=== PATIENT | female | born 1955 | race Caucasian/White ===

== ENCOUNTER 2016-12-23 12:25 | Inpatient (IN) | payer MEDICAID ==
[2016-12-23] MEDS ORDERED: IBUPROFEN 600 MG TABLET PO ONE (12:39)
--- NOTE | 2016-12-23 12:57 | ER Document Report ---
ED General - General Chief Complaint: Fall Stated Complaint: PSYCH EVAL Notes: The patient is a 61-year-old female, past medical history chronic paranoia, bipolar, schizophrenia, presents from her long-term with complaints of a right deformed knee. She said that she fell and her knee is deformed now. Her staff that the long-term says that this is chronic issue for her. She was able to pivot on it to the EMS bed. She denies numbness, tingling, LOC, neck pain, headache, chest pain or shortness of breath. TRAVEL OUTSIDE OF THE [place] IN LAST 30 DAYS: No - Related Data Allergies/Adverse Reactions: No Known Allergies Allergy (Verified 09/18/12 11:18) Past Medical History - General Information source: Patient - Social History Smoking Status: Unknown if Ever Smoked Family History: Reviewed & Not Pertinent - Past Medical History Cardiac Medical History: Denies: Hx Coronary Artery Disease, Hx Heart Attack, Hx Hypertension Pulmonary Medical History: Denies: Hx Asthma, Hx Bronchitis, Hx COPD, Hx Pneumonia Neurological Medical History: Denies: Hx Cerebrovascular Accident, Hx Seizures Musculoskeltal Medical History: Denies Hx Arthritis Past Surgical History: Reports: Hx Cardiac Surgery - 3 - Immunizations Hx Diphtheria, Pertussis, Tetanus Vaccination: No Review of Systems - Review of Systems Notes: REVIEW OF SYSTEMS: CONSTITUTIONAL: -fevers, -chills EENT: -eye pain, -difficulty swallowing, -nasal congestion CARDIOVASCULAR:-chest pain, -syncope. RESPIRATORY: -cough, -SOB GASTROINTESTINAL: -abdominal pain, - nausea, -vomiting, -diarrhea GENITOURINARY: -dysuria, -hematuria MUSCULOSKELETAL: +right knee deformity/pain, -back pain, -neck pain SKIN: -rash or skin lesions. HEMATOLOGIC: -easy bruising or bleeding. LYMPHATIC: -swollen, enlarged glands. NEUROLOGICAL: -altered mental status or loss of consciousness, -headache, - neurologic symptoms PSYCHIATRIC: -anxiety, -depression. ALL OTHER SYSTEMS REVIEWED AND NEGATIVE. Physical Exam - Vital signs Vitals: Temp Pulse Resp BP Pulse Ox 97.8 F 105 H 20 179/74 H 97 12/23/16 12:48 12/23/16 12:48 12/23/16 12:48 12/23/16 12:48 12/23/16 12:48 BP 190/110, HR 110, Pulse Ox 98% - Notes Notes: PHYSICAL EXAMINATION: GENERAL: Well-appearing, well-nourished and in no acute distress. HEAD: Atraumatic, normocephalic. EYES: Pupils equal round and reactive to light, extraocular movements intact, sclera anicteric, conjunctiva are normal. ENT: nares patent, oropharynx clear without exudates. Moist mucous membranes. NECK: Normal range of motion, supple without lymphadenopathy LUNGS: Breath sounds clear to auscultation bilaterally and equal. No wheezes rales or rhonchi. HEART: Tachycardic, Regular rhythm without murmurs ABDOMEN: Soft, nontender, normoactive bowel sounds. No guarding, no rebound. No masses appreciated. EXTREMITIES: Swelling and deformity of distal right femur, no knee effusion, strong distal pulses NEUROLOGICAL: Cranial nerves grossly intact. Normal speech, normal gait. Normal sensory, motor, and reflex exams. PSYCH: Normal mood, normal affect. SKIN: Warm, Dry, normal turgor, no rashes or lesions noted. Course - Re-evaluation Re-evalutation: Patient with a distal right comminuted femur fracture after her fall. Neurovascularly intact distally. Initially, she did not want any pain medicine , but on reevaluation, she is requesting medicine now. Spoke to Dr. Moy and he will see patient as inpatient. Spoke to Dr. Rodriguez and he has accepted patient at 14:10. - Vital Signs Vital signs: Temp Pulse Resp BP Pulse Ox 97.8 F 105 H 20 179/74 H 97 12/23/16 12:48 12/23/16 12:48 12/23/16 12:48 12/23/16 12:48 12/23/16 12:48 - Laboratory Result Diagrams: 12/23/16 13:40 12/23/16 13:40 - Diagnostic Test Radiology reviewed: Image reviewed, Reports reviewed Radiology results interpreted by me: Comminuted right distal femoral fracture. Discharge - Discharge Clinical Impression: Femur fracture, right Qualifiers: Encounter type: initial encounter Femur location: shaft Fracture type: closed Fracture morphology: segmental Fracture alignment: displaced Qualified Code(s): S72.361A - Displaced segmental fracture of shaft of right femur, initial encounter for closed fracture Condition: Stable Disposition: ADMITTED INPATIENT Admitting Provider: Jennifer Unit Admitted: Medical Floor
[2016-12-23] MEDS ORDERED: MORPHINE SULFATE 10 MG/ML INJ IV ONE (14:05)
[2016-12-23 14:11] LABS: HEMATOCRIT 42.9 % (36.0-47.0); HEMOGLOBIN 14.2 g/dL (12.0-15.5); HGB HCT DIFFERENCE -0.3; MEAN CORPUSCULAR HEMOGLOBIN 27.3 pg (27.0-33.4); MEAN CORPUSCULAR HGB CONC 33.1 g/dL (32.0-36.0); MEAN CORPUSCULAR VOLUME 83 fl (80-97); RED BLOOD COUNT 5.19 10^6/uL (3.72-5.28); WHITE BLOOD COUNT 29.4 10^3/uL (4.0-10.5)
[2016-12-23 14:20] LABS: PROTHROMBIN TIME 12.4 SEC (11.4-15.4)
[2016-12-23 14:47] LABS: BASOPHILS % (MANUAL) 0 % (0-2); EOSINOPHILS % (MANUAL) 0 % (0-6); LYMPHOCYTES % (MANUAL) 9 % (13-45); TOTAL CELLS COUNTED 100
[2016-12-23 14:48] LABS: ANISOCYTOSIS SLIGHT; OVALOCYTES SLIGHT; PLATELET CLUMPS PRESENT; POIKILOCYTOSIS SLIGHT; ROULEAUX 1+
[2016-12-23 15:53] LABS: ANION GAP 11 (5-19); BLOOD UREA NITROGEN 9 mg/dL (7-20); CALCIUM 9.4 mg/dL (8.4-10.2); CARBON DIOXIDE 24 mmol/L (22-30); CHLORIDE 106 mmol/L (98-107); CREATININE RESULT 0.65 mg/dL (0.52-1.25); GLUCOSE 114 mg/dL (75-110); POTASSIUM 4.1 mmol/L (3.6-5.0); SODIUM 140.5 mmol/L (137-145)
[2016-12-23] MEDS ORDERED: ACETAMINOPHEN 325 MG TABLET PO PRN (18:38)
[2016-12-23] MEDS: LORAZEPAM 1 MG TABLET PO SCH (21:35)
[2016-12-23] MEDS: HALOPERIDOL 5 MG TABLET PO SCH (21:36)
[2016-12-23] MEDS: ARIPIPRAZOLE 5 MG TABLET PO SCH (21:36)
[2016-12-23] MEDS: RISPERIDONE 1 MG TAB.RAPDIS PO SCH (21:36)
[2016-12-23] MEDS: TRAZODONE HCL 50 MG TABLET PO SCH (21:36)
[2016-12-23] MEDS ORDERED: (PENDING PHARMACY ID) (Aripiprazole [Abilify 10 Mg Tablet] 10 MG) PO SCH (22:00)
[2016-12-23] MEDS ORDERED: HALOPERIDOL 15 MG PO SCH (22:00)
[2016-12-24] MEDS: LORAZEPAM 1 MG TABLET PO SCH ×3 (05:56→21:15)
[2016-12-24] MEDS ORDERED: (PENDING PHARMACY ID) (Omeprazole Magnesium [Prilosec Otc] 1 TAB) PO SCH (08:00)
[2016-12-24] MEDS: BENZTROPINE MESYLATE 1 MG TABLET PO SCH ×2 (09:39→18:18)
[2016-12-24] MEDS: RISPERIDONE 1 MG TAB.RAPDIS PO SCH ×2 (09:39→21:15)
[2016-12-24] MEDS: LANSOPRAZOLE 15 MG TAB.RAP.DR PO SCH (09:40)
[2016-12-24] MEDS ORDERED: LORAZEPAM 1 MG TABLET PO SCH (10:00)
[2016-12-24] MEDS ORDERED: RISPERIDONE 4 MG PO SCH (10:00)
[2016-12-24] MEDS: HYDROMORPHONE HCL INJ/PF 2 MG/ML AMPULE IV PRN (10:01)
--- NOTE | 2016-12-24 16:12 | PDOC H&P ---
History of Present Illness Admission Date/PCP: 12/23/16 14:23 History of Present Illness: INDY VENTURA is a 61 year old female, resident of assisted living facility, she fell and sustained fracture of the right distal femur, there was no antecedent history of chest pain, no loss of consciousness, this occurred when she came out of the shower. In the emergency room x-ray was done to confirm the fracture. She has a history of chronic lymphocytic leukemia. Past Medical History Malignancy Medical History: Reports: Leukemia - Chronic lymphocytic leukemia, Other Social History Smoking Status: Current Every Day Smoker Frequency of Alcohol Use: None - Advance Directive Resuscitation Status: Full Code Family History Family History: Reviewed & Not Pertinent Parental Family History Reviewed: Yes Children Family History Reviewed: Yes Sibling(s) Family History Reviewed.: Yes Medication/Allergy Home Medications: Acetaminophen [Pain Relief] 2 tab PO ASDIR PRN 04/04/16 Aripiprazole [Abilify 10 mg Tablet] 10 mg PO QHS 04/04/16 Benztropine Mesylate 1 mg PO BID 04/04/16 Haloperidol 15 mg PO QHS 04/04/16 Lorazepam 1 mg PO TID 04/04/16 Risperidone [Risperidone Odt] 4 mg PO BID 04/04/16 Trazodone HCl [Desyrel 50 mg Tablet] 25 mg PO QHS 04/04/16 Omeprazole Magnesium [Prilosec Otc] 1 tab PO QAM 12/23/16 Allergies/Adverse Reactions: No Known Allergies Allergy (Verified 12/23/16 14:54) Review of Systems Constitutional: ABSENT: chills, fever(s), headache(s), weight gain, weight loss Eyes: ABSENT: visual disturbances Ears: ABSENT: hearing changes Cardiovascular: ABSENT: chest pain, dyspnea on exertion, edema, orthropnea, palpitations Respiratory: ABSENT: cough, hemoptysis Gastrointestinal: ABSENT: abdominal pain, constipation, diarrhea, hematemesis, hematochezia, nausea, vomiting Genitourinary: ABSENT: dysuria, hematuria Musculoskeletal: ABSENT: joint swelling Integumentary: ABSENT: rash, wounds Neurological: ABSENT: abnormal gait, abnormal speech, confusion, dizziness, focal weakness, syncope Psychiatric: ABSENT: anxiety, depression, homidical ideation, suicidal ideation Endocrine: ABSENT: cold intolerance, heat intolerance, menstrual abnormalities, polydipsia, polyuria Hematologic/Lymphatic: ABSENT: easy bleeding, easy bruising, lymphadenopathy Physical Exam Vital Signs: Temp Pulse Resp BP Pulse Ox 98.0 F 97 16 116/72 93 12/24/16 11:15 12/24/16 11:15 12/24/16 11:15 12/24/16 11:15 12/24/16 11:15 Intake & Output 12/23/16 12/24/16 12/25/16 06:59 06:59 06:59 Intake Total 600 Output Total 600 500 Balance -600 100 Weight 101 kg General appearance: PRESENT: no acute distress, well-developed, well-nourished Head exam: PRESENT: atraumatic, normocephalic Eye exam: PRESENT: conjunctiva pink, EOMI, PERRLA. ABSENT: scleral icterus Ear exam: PRESENT: normal external ear exam Mouth exam: PRESENT: moist, tongue midline Neck exam: PRESENT: full ROM Respiratory exam: PRESENT: clear to auscultation zara Cardiovascular exam: PRESENT: RRR, +S1, +S2 Pulses: PRESENT: normal dorsalis pedis pul, +2 pedal pulses bilateral Vascular exam: PRESENT: normal capillary refill GI/Abdominal exam: PRESENT: normal bowel sounds, soft. ABSENT: distended, guarding, mass, organolmegaly, rebound, tenderness Rectal exam: PRESENT: deferred Extremities exam: PRESENT: other - There is abnormal rotation of the right leg Neurological exam: PRESENT: alert, awake, oriented to person, oriented to place , oriented to time, oriented to situation, CN II-XII grossly intact. ABSENT: motor sensory deficit Psychiatric exam: PRESENT: appropriate affect, normal mood Skin exam: PRESENT: dry, intact, warm Results Laboratory Results: 12/23/16 15:06 Impressions: Femur X-Ray 12/23/16 12:39 IMPRESSION: Comminuted right distal femoral fracture. Tibia/Fibula X-Ray 12/23/16 12:39 IMPRESSION: No acute finding involving the tibia or fibula. There is a comminuted distal femoral fracture and advanced degenerative changes in the knee. Assessment & Plan - Diagnosis (1) Closed comminuted intra-articular fracture of distal end of right femur Qualifiers: Encounter type: initial encounter Qualified Code(s): S72.491A - Other fracture of lower end of right femur, initial encounter for closed fracture Plan: Orthopedic consultation will be requested (2) Chronic lymphocytic leukemia Is this a current diagnosis for this admission?: Yes
[2016-12-24] MEDS: ARIPIPRAZOLE 5 MG TABLET PO SCH (21:15)
[2016-12-24] MEDS: HALOPERIDOL 5 MG TABLET PO SCH (21:15)
[2016-12-24] MEDS: TRAZODONE HCL 50 MG TABLET PO SCH (21:16)
[2016-12-25] MEDS: HYDROMORPHONE HCL INJ/PF 2 MG/ML AMPULE IV PRN ×3 (05:30→21:53)
[2016-12-25] MEDS: LORAZEPAM 1 MG TABLET PO SCH ×3 (05:30→21:53)
[2016-12-25] MEDS: BENZTROPINE MESYLATE 1 MG TABLET PO SCH ×2 (09:33→17:11)
[2016-12-25] MEDS: LANSOPRAZOLE 15 MG TAB.RAP.DR PO SCH (09:33)
[2016-12-25] MEDS: RISPERIDONE 1 MG TAB.RAPDIS PO SCH ×2 (09:33→21:53)
--- NOTE | 2016-12-25 15:45 | PDOC PROGRESS REPORT ---
Subjective Progress Note for:: 12/25/16 Subjective:: She was admitted for fractured femur awaiting input from orthopedic Physical Exam Vital Signs: Temp Pulse Resp BP Pulse Ox 98.4 F 109 H 18 113/74 96 12/25/16 11:10 12/25/16 11:10 12/25/16 11:10 12/25/16 11:10 12/25/16 11:10 Intake & Output 12/24/16 12/25/16 12/26/16 06:59 06:59 06:59 Intake Total 1200 980 Output Total 600 500 Balance -600 700 980 Weight 101 kg 102.2 kg General appearance: PRESENT: no acute distress Eye exam: PRESENT: PERRLA Respiratory exam: PRESENT: clear to auscultation zara Cardiovascular exam: PRESENT: +S1, +S2 GI/Abdominal exam: PRESENT: soft Results Laboratory Results: 12/23/16 15:06 Impressions: Femur X-Ray 12/23/16 12:39 IMPRESSION: Comminuted right distal femoral fracture. Tibia/Fibula X-Ray 12/23/16 12:39 IMPRESSION: No acute finding involving the tibia or fibula. There is a comminuted distal femoral fracture and advanced degenerative changes in the knee. Assessment & Plan - Diagnosis (1) Closed comminuted intra-articular fracture of distal end of right femur Qualifiers: Encounter type: initial encounter Qualified Code(s): S72.491A - Other fracture of lower end of right femur, initial encounter for closed fracture (2) Chronic lymphocytic leukemia Is this a current diagnosis for this admission?: Yes
[2016-12-25] MEDS: TRAZODONE HCL 50 MG TABLET PO SCH (21:53)
[2016-12-25] MEDS: ARIPIPRAZOLE 5 MG TABLET PO SCH (21:53)
[2016-12-25] MEDS: HALOPERIDOL 5 MG TABLET PO SCH (21:53)
[2016-12-26] MEDS: HYDROMORPHONE HCL INJ/PF 2 MG/ML AMPULE IV PRN ×2 (05:20→17:27)
[2016-12-26] MEDS: LORAZEPAM 1 MG TABLET PO SCH ×3 (05:20→22:16)
[2016-12-26] MEDS: LANSOPRAZOLE 15 MG TAB.RAP.DR PO SCH (08:58)
[2016-12-26] MEDS: RISPERIDONE 1 MG TAB.RAPDIS PO SCH ×2 (09:43→22:16)
[2016-12-26] MEDS: BENZTROPINE MESYLATE 1 MG TABLET PO SCH ×2 (09:44→17:27)
--- NOTE | 2016-12-26 13:09 | PDOC CONSULTATION ---
History of Present Illness Admission Date/PCP: 12/23/16 14:23 History of Present Illness: INDY VENTURA is a 61 year old female, resident of assisted living facility, she fell and sustained fracture of the right distal femur, there was no antecedent history of chest pain, no loss of consciousness, this occurred when she came out of the shower. Patient states she is a regular ambulator. Denied pain or discomfort prior to her fall. She has been bedridden since admission on 12/23/16 and been EMS traction since that point. She states her pain is worse with any motion. Denies numbness or tingling. Pain 8/10. Past Medical History Cardiac Medical History: Denies: Coronary Artery Disease, Myocardial Infarction, Hypertension Pulmonary Medical History: Denies: Asthma, Bronchitis, Chronic Obstructive Pulmonary Disease (COPD), Pneumonia Neurological Medical History: Denies: Seizures Malignancy Medical History: Reports: Leukemia - Chronic lymphocytic leukemia, Other Musculoskeltal Medical History: Denies: Arthritis Social History Smoking Status: Current Every Day Smoker Frequency of Alcohol Use: None - Advance Directive Resuscitation Status: Full Code Family History Family History: Reviewed & Not Pertinent Parental Family History Reviewed: Yes Children Family History Reviewed: No Sibling(s) Family History Reviewed.: No Medication/Allergy Home Medications: Acetaminophen [Pain Relief] 2 tab PO ASDIR PRN 04/04/16 Aripiprazole [Abilify 10 mg Tablet] 10 mg PO QHS 04/04/16 Benztropine Mesylate 1 mg PO BID 04/04/16 Haloperidol 15 mg PO QHS 04/04/16 Lorazepam 1 mg PO TID 04/04/16 Risperidone [Risperidone Odt] 4 mg PO BID 04/04/16 Trazodone HCl [Desyrel 50 mg Tablet] 25 mg PO QHS 04/04/16 Omeprazole Magnesium [Prilosec Otc] 1 tab PO QAM 12/23/16 Allergies/Adverse Reactions: No Known Allergies Allergy (Verified 12/23/16 14:54) Review of Systems Constitutional: ABSENT: chills, fever(s), headache(s), weight gain, weight loss Eyes: ABSENT: visual disturbances Ears: ABSENT: hearing changes Cardiovascular: ABSENT: chest pain, dyspnea on exertion, edema, orthropnea, palpitations Respiratory: ABSENT: cough, hemoptysis Gastrointestinal: ABSENT: abdominal pain, constipation, diarrhea, hematemesis, hematochezia, nausea, vomiting Genitourinary: ABSENT: dysuria, hematuria Musculoskeletal: PRESENT: as per HPI Integumentary: ABSENT: rash, wounds Neurological: ABSENT: abnormal gait, abnormal speech, confusion, dizziness, focal weakness, syncope Psychiatric: ABSENT: anxiety, depression, homidical ideation, suicidal ideation Endocrine: ABSENT: cold intolerance, heat intolerance, menstrual abnormalities, polydipsia, polyuria Hematologic/Lymphatic: ABSENT: easy bleeding, easy bruising, lymphadenopathy Physical Exam Vital Signs: Temp Pulse Resp BP Pulse Ox 98.2 F 108 H 20 149/87 H 98 12/26/16 11:43 12/26/16 11:43 12/26/16 11:43 12/26/16 11:43 12/26/16 11:43 Intake & Output 12/25/16 12/26/16 12/27/16 06:59 06:59 06:59 Intake Total 1200 1100 Output Total 500 0 Balance 700 1100 Weight 102.2 kg General appearance: PRESENT: no acute distress, well-developed, well-nourished Head exam: PRESENT: atraumatic, normocephalic Eye exam: PRESENT: conjunctiva pink, EOMI, PERRLA. ABSENT: scleral icterus Ear exam: PRESENT: normal external ear exam Mouth exam: PRESENT: moist, tongue midline Neck exam: PRESENT: full ROM. ABSENT: carotid bruit, JVD, lymphadenopathy, thyromegaly Respiratory exam: PRESENT: unlabored Cardiovascular exam: PRESENT: RRR. ABSENT: diastolic murmur, rubs, systolic murmur Pulses: PRESENT: normal dorsalis pedis pul, +2 pedal pulses bilateral Vascular exam: PRESENT: normal capillary refill GI/Abdominal exam: PRESENT: normal bowel sounds, soft, other - obese. ABSENT: distended, guarding, mass, organolmegaly, rebound, tenderness Rectal exam: PRESENT: deferred Musculoskeletal exam: PRESENT: other - Right lower extremity: EMS traction device removed. There is evidence of skin irritation on the dorsum of the foot and buttocks. Notable swelling around traction straps. Patient is intact plantar flexion/dorsiflexion. Compartments soft and compressible no sign of compartment syndrome. Dorsalis pedis pulse 2+. Positive logroll. No sensory deficits. Neurological exam: PRESENT: alert, awake, oriented to person, oriented to place , oriented to time, oriented to situation, CN II-XII grossly intact. ABSENT: motor sensory deficit Psychiatric exam: PRESENT: flat affect, normal mood. ABSENT: homicidal ideation , suicidal ideation Skin exam: PRESENT: dry, intact, warm. ABSENT: cyanosis, rash Results Laboratory Results: 12/23/16 15:06 Impressions: Femur X-Ray 12/23/16 12:39 IMPRESSION: Comminuted right distal femoral fracture. Tibia/Fibula X-Ray 12/23/16 12:39 IMPRESSION: No acute finding involving the tibia or fibula. There is a comminuted distal femoral fracture and advanced degenerative changes in the knee. Status: Image reviewed by me - I have reviewed patient's radiographs which demonstrate comminuted distal femur fracture extra-articular nature. There is evidence of advanced patellofemoral degenerative changes. Assessment & Plan - Diagnosis (1) Closed fracture of left distal femur Qualifiers: Encounter type: initial encounter Fracture morphology: other fracture Qualified Code(s): S72.492A - Other fracture of lower end of left femur, initial encounter for closed fracture Is this a current diagnosis for this admission?: YesPlan: I have reviewed patient's radiographs which demonstrates comminuted distal femur fracture with degenerative changes evident prior to injury. I have discussed treatment options with the patient and her mother treatment including nonoperative treatment versus operative intervention despite patient's mental limitations she does ambulate fairly regularly and thus I feel she would benefit from operative intervention which would include open reduction internal fixation versus retrograde IM nail. After discussing these treatment options the joint decision was made to proceed with operative treatment. We will proceed with operative intervention on 12/27/16. Risks include anesthetic complications, excessive bleeding, infection, injury to surrounding nerves, vessels and tendons, bruising, healing difficulties, scar formation, posttraumatic arthritis and any unforseen complication.
--- NOTE | 2016-12-26 20:48 | EKG REPORT ---
SEVERITY:- OTHERWISE NORMAL ECG - SINUS TACHYCARDIA ATRIAL PREMATURE COMPLEX : Confirmed by: Brian Multani 26-Dec-2016 20:47:18
[2016-12-26] MEDS: TRAZODONE HCL 50 MG TABLET PO SCH (22:16)
[2016-12-26] MEDS: ARIPIPRAZOLE 5 MG TABLET PO SCH (22:16)
[2016-12-26] MEDS: HALOPERIDOL 5 MG TABLET PO SCH (22:16)
[2016-12-27] MEDS: LORAZEPAM 1 MG TABLET PO SCH ×3 (06:33→22:23)
[2016-12-27 06:58] LABS: HEMATOCRIT 31.8 % (36.0-47.0); HEMOGLOBIN 10.8 g/dL (12.0-15.5); HGB HCT DIFFERENCE 0.6; MEAN CORPUSCULAR HEMOGLOBIN 27.9 pg (27.0-33.4); MEAN CORPUSCULAR VOLUME 82 fl (80-97); RED BLOOD COUNT 3.89 10^6/uL (3.72-5.28); RED CELL DISTRIBUTION WIDTH 14.8 % (11.5-14.0)
[2016-12-27 07:21] LABS: ANION GAP 8 (5-19); BLOOD UREA NITROGEN 12 mg/dL (7-20); CALCIUM 8.8 mg/dL (8.4-10.2); CARBON DIOXIDE 31 mmol/L (22-30); CHLORIDE 93 mmol/L (98-107); CREATININE RESULT 0.57 mg/dL (0.52-1.25); GLUCOSE 128 mg/dL (75-110); POTASSIUM 3.8 mmol/L (3.6-5.0); SODIUM 131.5 mmol/L (137-145)
[2016-12-27] MEDS ORDERED: ONDANSETRON HCL INJ/PF 4 MG/2 ML SDV ONE (07:43)
[2016-12-27] MEDS ORDERED: GLYCOPYRROLATE INJ 0.4 MG/2 ML VIAL ONE (07:43)
[2016-12-27] MEDS ORDERED: ROCURONIUM BROMIDE INJ 50 MG/5 ML VIAL IV ONE (07:43)
[2016-12-27] MEDS ORDERED: DEXAMETHASONE SOD PHOSPHATE INJ 4 MG/1 ML VIAL ONE (07:43)
[2016-12-27] MEDS ORDERED: NEOSTIGMINE METHYLSULFATE 10 MG/10 ML VIAL ONE (07:43)
[2016-12-27] MEDS ORDERED: LIDOCAINE 2% INJ-PF (20 MG/ML) 10 ML AMPUL ONE (07:43)
[2016-12-27] MEDS ORDERED: SUCCINYLCHOLINE CHLORIDE INJ 200 MG/10 ML VIAL ONE (07:43)
[2016-12-27 07:57] LABS: WHITE BLOOD COUNT 20.4 10^3/uL (4.0-10.5)
[2016-12-27] MEDS: LANSOPRAZOLE 15 MG TAB.RAP.DR PO SCH (09:17)
[2016-12-27] MEDS: RISPERIDONE 1 MG TAB.RAPDIS PO SCH ×2 (09:17→22:24)
[2016-12-27] MEDS: BENZTROPINE MESYLATE 1 MG TABLET PO SCH ×2 (09:17→18:46)
[2016-12-27] MEDS: ONDANSETRON 4 MG TAB.RAPDIS PO PRN (11:31)
[2016-12-27] MEDS ORDERED: RINGERS SOLUTION,LACTATED 1,000 ML IV PRN ×2 (11:36→20:21)
[2016-12-27] MEDS ORDERED: CEFAZOLIN INJ 1 GM VIAL ONE (15:34)
[2016-12-27] MEDS ORDERED: FENTANYL CITRATE INJ/PF 100 MCG/2 ML AMPUL ONE ×2 (17:00→21:06)
[2016-12-27] MEDS ORDERED: HYDROMORPHONE HCL INJ/PF 2 MG/ML AMPULE ONE (17:00)
[2016-12-27] MEDS ORDERED: MIDAZOLAM 2 MG/2 ML INJ ONE (17:01)
[2016-12-27] MEDS ORDERED: PROPOFOL INJ 200 MG/20 ML VIAL IV ONE (17:01)
[2016-12-27] MEDS ORDERED: ACETAMINOPHEN 100 ML IV ONE (17:02)
[2016-12-27] MEDS ORDERED: DEXMEDETOMIDINE INJ 80 MCG/20 ML VIAL IV ONE (17:43)
[2016-12-27] MEDS ORDERED: KETAMINE HCL INJ 500 MG/10 ML VIAL ONE (17:54)
--- NOTE | 2016-12-27 18:54 | PDOC PROGRESS REPORT ---
Subjective Progress Note for:: 12/27/16 Subjective:: Patient went to the OR today for orthopedic surgery regarding the fracture of the distal femur Physical Exam Vital Signs: Temp Pulse Resp BP Pulse Ox 98.9 F 117 H 18 132/73 H 96 12/27/16 14:37 12/27/16 14:37 12/27/16 14:37 12/27/16 14:37 12/27/16 14:37 Intake & Output 12/26/16 12/27/16 12/28/16 06:59 06:59 06:59 Intake Total 0 Output Total 300 Balance -300 General appearance: PRESENT: no acute distress Eye exam: PRESENT: PERRLA Respiratory exam: PRESENT: clear to auscultation zara Cardiovascular exam: PRESENT: +S1, +S2 GI/Abdominal exam: PRESENT: soft Neurological exam: PRESENT: alert Results Impressions: Femur X-Ray 12/23/16 12:39 IMPRESSION: Comminuted right distal femoral fracture. Tibia/Fibula X-Ray 12/23/16 12:39 IMPRESSION: No acute finding involving the tibia or fibula. There is a comminuted distal femoral fracture and advanced degenerative changes in the knee. Chest X-Ray 12/26/16 00:00 IMPRESSION: NO ACUTE RADIOGRAPHIC FINDING IN THE CHEST. Assessment & Plan - Diagnosis (1) Closed comminuted intra-articular fracture of distal end of right femur Qualifiers: Encounter type: initial encounter Qualified Code(s): S72.491A - Other fracture of lower end of right femur, initial encounter for closed fracture (2) Chronic lymphocytic leukemia Is this a current diagnosis for this admission?: Yes
[2016-12-27] MEDS ORDERED: MORPHINE SULFATE 10 MG/ML INJ IV PRN (19:46)
[2016-12-27] MEDS ORDERED: FENTANYL CITRATE INJ/PF 100 MCG/2 ML AMPUL IV PRN ×3 (19:46)
[2016-12-27] MEDS ORDERED: PROMETHAZINE HCL INJ 25 MG/1 ML VIAL IV PRN (19:46)
[2016-12-27] MEDS ORDERED: DIPHENHYDRAMINE HCL 50 MG/ML VIAL IV PRN (19:46)
--- NOTE | 2016-12-27 20:31 | Operative Report ---
Operative Report DATE OF SURGERY: 12/27/16 PREOPERATIVE DIAGNOSIS: Right Distal Femur Fracture POSTOPERATIVE DIAGNOSIS: Same OPERATION: Retrgrade Nail Right Distal Femur SURGEON: MAXIMO OLVERA ANESTHESIA: GA COMPLICATIONS: None ESTIMATED BLOOD LOSS: 50cc PROCEDURE: Indication for above procedure: 61-year-old female who sustained a fall onto her right lower extremity. Patient was seen at the emergency room where x-rays demonstrated extra- articular distal femur fracture. Patient was admitted to the medicine service. Patient was left in hairs traction over 72 hours on the floor. Orthopedics was subsequently notified about patient's injury and location on 12/26/16. At that point I discussed treatment options with the patient and her mother who is power of patent attorney. Given patient's fairly active and Stone status the decision was made to proceed with operative intervention. Procedure In Detail: Patient was seen and evaluated in the preoperative holding area. The RIGHT lower extremity was initialized and marked. Patient received 2g of Ancef IV for bacterial prophylaxis. Patient was taken back to the operative room where transferred to the operative table and placed under general anesthesia. Once they were adequately anesthetized a surgical team debriefing was performed ensuring all instrumentation was available, the surgical procedure was discussed with possible concerns reviewed. The lower extremity was prepped with ChloraPrep and draped in a sterile fashion. A timeout was done identifying correct patient, procedure and extremity everyone in attendance agree with this and verbalized no concerns. A sterile tourniquet was placed and extremity was exsanguinated the tourniquet was inflated to 350 mmHg. A longitudinal skin incision was made centered over the knee. Blunt dissection was performed down to the medial retinaculum. A medial parapatellar approach was utilized preserving the meniscus attachments. Patient had significant osteophytes throughout the medial and lateral condyles there was some remaining cartilage along the distal femur. Osteophytes were removed. I then localized my starting point just anterior to the PCL insertion. The guidepin was then placed through the distal femur. C-arm fluoroscopy was obtained demonstrating the appropriate trajectory on lateral view anterior to Blumensaat's line and within the notch on the anterior view. Once this was confirmed the opening reamer was utilized. With the radiolucent triangle reduction of the distal femur was accomplished and the ball-tip guide wire advanced to the proximal femur at the level of the lesser trochanter. I then measured the appropriate sized nail to be 360 mm. The intramedullary canal was reamed beginning with a 9 mm reamer reaming by increments of 1 to a 14 mm reamer. I got adequate fit with a 13 mm reamer and thus decided to proceed with implantation of a Spangle retrograde T2 nail 360 mm x 13 mm. This was impacted into position. C-arm fluoroscopy was then obtained demonstrating voodoo of height angulation and no residual displacement. I then proceeded with locking of the nail distally. With the aiming arm and placed skin incisions were made and blunt dissection performed down to the femoral cortex. I then drilled bicortically and placed the appropriate sized locking screw. Because of patient 's poor bone quality I decided to proceed with a compression locking bolt in the most distal aspect. A 5 mm drill was drilled medial to laterally. Blunt dissection was performed laterally and medially the guidewire was then passed from medial to lateral projection. I measured the appropriate size locking bolt. Once this was confirmed the locking bolt was placed on the guidewire through the cannulation laterally and the screw and locking bolt was placed medially. This was tightened to I got good compression of the distal femur. I then turned my attention to proximal locking. Perfect circles were obtained proximally a longitudinal skin incision was made and blunt dissection performed down to the anterior cortex of the femur. I drilled bicortically and placed the appropriate sized locking screw. This was confirmed on AP and lateral projection. I then got final C-arm x-rays demonstrating adequate reduction of the distal femur fracture with optimal placement of the retrograde nail. The wounds were then irrigated with normal saline. The capsule of the knee was closed with interrupted 0 Vicryl suture. Subcutaneous tissues were closed with 2-0 Vicryl suture. Skin was closed with angel. 3-0 Monocryl subcuticular stitches were placed at the proximal locking hole. This was reinforced with Dermabond. We was dressed with Acticoat and OpSite and placed in a Niko and Coban. Tourniquet was deflated. Patient a good dorsalis pedis pulse cap refill of her lower extremity. She was then placed in her previous knee immobilizer. Sponge counts, instrument counts, needle counts counts were correct. Patient was then awoken from anesthesia. Transferred from the operating room table to the operating room stretcher. There was no intraoperative complications patient tolerated procedure well stable to PACU. Postoperative plan: Patient will be nonweightbearing in her right lower extremity and will continue knee immobilizer. She may begin transfers and sitting on a chair at side. We will obtain radiographs at her follow-up visit and remove angel at that time. Patient will be started on Xarelto for DVT prophylaxis.
[2016-12-27] MEDS ORDERED: KETOROLAC TROMETHAMINE INJ/PF 30 MG/1 ML SDV ONE (21:06)
[2016-12-27] MEDS: ARIPIPRAZOLE 5 MG TABLET PO SCH (22:23)
[2016-12-27] MEDS: TRAZODONE HCL 50 MG TABLET PO SCH (22:23)
[2016-12-27] MEDS: HALOPERIDOL 5 MG TABLET PO SCH (22:23)
[2016-12-27] MEDS: RIVAROXABAN 10 MG TABLET PO SCH (22:23)
[2016-12-27] MEDS: CEFAZOLIN 2 GM/D5W RTU 50 ML IV SCH (23:41)
[2016-12-28] MEDS: HYDROMORPHONE HCL INJ/PF 2 MG/ML AMPULE IV PRN ×4 (00:03→22:00)
[2016-12-28] MEDS: CEFAZOLIN 2 GM/D5W RTU 50 ML IV SCH ×3 (05:23→17:19)
[2016-12-28] MEDS: LORAZEPAM 1 MG TABLET PO SCH ×3 (05:23→21:47)
[2016-12-28 07:44] LABS: HEMOGLOBIN 9.8 g/dL (12.0-15.5); HGB HCT DIFFERENCE 0.4; MEAN CORPUSCULAR HEMOGLOBIN 27.6 pg (27.0-33.4); MEAN CORPUSCULAR HGB CONC 33.8 g/dL (32.0-36.0); MEAN CORPUSCULAR VOLUME 82 fl (80-97); RED BLOOD COUNT 3.55 10^6/uL (3.72-5.28); RED CELL DISTRIBUTION WIDTH 14.6 % (11.5-14.0)
[2016-12-28 08:05] LABS: ANION GAP 11 (5-19); BLOOD UREA NITROGEN 21 mg/dL (7-20); CALCIUM 8.4 mg/dL (8.4-10.2); CARBON DIOXIDE 28 mmol/L (22-30); CHLORIDE 91 mmol/L (98-107); CREATININE RESULT 0.66 mg/dL (0.52-1.25); SODIUM 130.1 mmol/L (137-145)
[2016-12-28 08:08] LABS: GLUCOSE 114 mg/dL (75-110)
[2016-12-28 08:15] LABS: WHITE BLOOD COUNT 29.2 10^3/uL (4.0-10.5)
[2016-12-28] MEDS: LANSOPRAZOLE 15 MG TAB.RAP.DR PO SCH (09:07)
[2016-12-28] MEDS: BENZTROPINE MESYLATE 1 MG TABLET PO SCH ×2 (09:07→17:16)
[2016-12-28] MEDS: RISPERIDONE 1 MG TAB.RAPDIS PO SCH ×2 (09:07→21:47)
--- NOTE | 2016-12-28 18:27 | PDOC PROGRESS REPORT ---
Subjective Progress Note for:: 12/28/16 Subjective:: She is status post retrograde nailing of the fracture femur, she is somewhat confused. Physical Exam Vital Signs: Temp Pulse Resp BP Pulse Ox 98.7 F 133 H 18 149/70 H 95 12/28/16 16:00 12/28/16 16:00 12/28/16 16:00 12/28/16 16:00 12/28/16 16:00 Intake & Output 12/27/16 12/28/16 12/29/16 06:59 06:59 06:59 Intake Total 5090 Output Total 2180 Balance 2910 General appearance: PRESENT: no acute distress Eye exam: PRESENT: PERRLA Cardiovascular exam: PRESENT: +S1, +S2 GI/Abdominal exam: PRESENT: soft Results Laboratory Results: 12/28/16 06:53 12/28/16 06:53 12/28/16 12/28/16 06:53 06:53 WBC 29.2 H RBC 3.55 L Hgb 9.8 L Hct 29.0 L MCV 82 MCH 27.6 MCHC 33.8 RDW 14.6 H Plt Count 180 Sodium 130.1 L Potassium 4.0 Chloride 91 L Carbon Dioxide 28 Anion Gap 11 BUN 21 H Creatinine 0.66 Est GFR ( Amer) > 60 Est GFR (Non-Af Amer) > 60 Glucose 114 H Calcium 8.4 Impressions: Tibia/Fibula X-Ray 12/23/16 12:39 IMPRESSION: No acute finding involving the tibia or fibula. There is a comminuted distal femoral fracture and advanced degenerative changes in the knee. Chest X-Ray 12/26/16 00:00 IMPRESSION: NO ACUTE RADIOGRAPHIC FINDING IN THE CHEST. Femur X-Ray 12/27/16 00:00 IMPRESSION: IMAGE(S) OBTAINED DURING PROCEDURE. Fluoroscopy 12/27/16 00:00 IMPRESSION: Please see combined report for performance of procedure and radiologic supervision and interpretation. Assessment & Plan - Diagnosis (1) Closed comminuted intra-articular fracture of distal end of right femur Qualifiers: Encounter type: initial encounter Qualified Code(s): S72.491A - Other fracture of lower end of right femur, initial encounter for closed fracture (2) Chronic lymphocytic leukemia Is this a current diagnosis for this admission?: Yes
--- NOTE | 2016-12-28 19:06 | PDOC PROGRESS REPORT ---
Subjective Progress Note for:: 12/28/16 Subjective:: Patient seen this evening. No issues. Pain is controlled. Has maintained nonweightbearing required moderate assistance today. Physical Exam Vital Signs: Temp Pulse Resp BP Pulse Ox 98.7 F 133 H 18 149/70 H 95 12/28/16 16:00 12/28/16 16:00 12/28/16 16:00 12/28/16 16:00 12/28/16 16:00 Intake & Output 12/27/16 12/28/16 12/29/16 06:59 06:59 06:59 Intake Total 5090 390 Output Total 2180 Balance 2910 390 Musculoskeletal exam: PRESENT: other - Right lower extremity: Dressing clean/dry /intact. No calf tenderness. Intact plantar flexion/dorsiflexion. Results Laboratory Results: 12/28/16 06:53 12/28/16 06:53 12/28/16 12/28/16 06:53 06:53 WBC 29.2 H RBC 3.55 L Hgb 9.8 L Hct 29.0 L MCV 82 MCH 27.6 MCHC 33.8 RDW 14.6 H Plt Count 180 Sodium 130.1 L Potassium 4.0 Chloride 91 L Carbon Dioxide 28 Anion Gap 11 BUN 21 H Creatinine 0.66 Est GFR ( Amer) > 60 Est GFR (Non-Af Amer) > 60 Glucose 114 H Calcium 8.4 Impressions: Tibia/Fibula X-Ray 12/23/16 12:39 IMPRESSION: No acute finding involving the tibia or fibula. There is a comminuted distal femoral fracture and advanced degenerative changes in the knee. Chest X-Ray 12/26/16 00:00 IMPRESSION: NO ACUTE RADIOGRAPHIC FINDING IN THE CHEST. Femur X-Ray 12/27/16 00:00 IMPRESSION: IMAGE(S) OBTAINED DURING PROCEDURE. Fluoroscopy 12/27/16 00:00 IMPRESSION: Please see combined report for performance of procedure and radiologic supervision and interpretation. Assessment & Plan - Diagnosis (1) Closed fracture of left distal femur Qualifiers: Encounter type: initial encounter Fracture morphology: other fracture Qualified Code(s): S72.492A - Other fracture of lower end of left femur, initial encounter for closed fracture Is this a current diagnosis for this admission?: YesPlan: Status post retrograde nail femur fracture #1 physical therapy nonweightbearing #2 Xarelto for DVT prophylaxis #3 continued decubitus precautions given previous length of Hare traction #4 discharge planning patient will likely require residential facility.
[2016-12-28] MEDS: RIVAROXABAN 10 MG TABLET PO SCH (21:47)
[2016-12-28] MEDS: ARIPIPRAZOLE 5 MG TABLET PO SCH (21:47)
[2016-12-28] MEDS: HALOPERIDOL 5 MG TABLET PO SCH (21:47)
[2016-12-28] MEDS: TRAZODONE HCL 50 MG TABLET PO SCH (21:47)
[2016-12-29] MEDS: LORAZEPAM 1 MG TABLET PO SCH ×2 (05:48→18:51)
[2016-12-29] MEDS: ONDANSETRON 4 MG TAB.RAPDIS PO PRN (05:48)
[2016-12-29 07:38] LABS: HEMATOCRIT 27.7 % (36.0-47.0); HEMOGLOBIN 9.3 g/dL (12.0-15.5); HGB HCT DIFFERENCE 0.2; MEAN CORPUSCULAR HEMOGLOBIN 27.4 pg (27.0-33.4); MEAN CORPUSCULAR HGB CONC 33.7 g/dL (32.0-36.0); MEAN CORPUSCULAR VOLUME 81 fl (80-97); RED CELL DISTRIBUTION WIDTH 14.7 % (11.5-14.0)
[2016-12-29 08:48] LABS: WHITE BLOOD COUNT 27.1 10^3/uL (4.0-10.5)
[2016-12-29] MEDS: RISPERIDONE 1 MG TAB.RAPDIS PO SCH (09:51)
[2016-12-29] MEDS: BENZTROPINE MESYLATE 1 MG TABLET PO SCH ×2 (09:51→18:51)
[2016-12-29] MEDS: LANSOPRAZOLE 15 MG TAB.RAP.DR PO SCH (09:51)
[2016-12-29] MEDS: HYDROMORPHONE HCL INJ/PF 2 MG/ML AMPULE IV PRN (14:08)
--- NOTE | 2016-12-29 19:24 | PDOC PROGRESS REPORT ---
Subjective Progress Note for:: 12/29/16 Subjective:: Patient was seen by the bedside today on the abdomen is distended, CT scan of the abdomen and pelvis was done with IV contrast and it showed a fairly markedly distended colon with transition point at the rectosigmoid area Physical Exam Vital Signs: Temp Pulse Resp BP Pulse Ox 97.6 F 128 H 18 119/79 94 12/28/16 23:50 12/28/16 23:50 12/28/16 23:50 12/28/16 23:50 12/28/16 23:50 Intake & Output 12/28/16 12/29/16 12/30/16 06:59 06:59 06:59 Intake Total 5090 612 Output Total 2180 1000 Balance 2910 -388 Respiratory exam: PRESENT: clear to auscultation zara Cardiovascular exam: PRESENT: +S1, +S2 GI/Abdominal exam: PRESENT: distended Neurological exam: PRESENT: alert Results Laboratory Results: 12/29/16 06:07 12/28/16 06:53 12/29/16 06:07 WBC 27.1 H RBC 3.40 L Hgb 9.3 L Hct 27.7 L MCV 81 MCH 27.4 MCHC 33.7 RDW 14.7 H Plt Count 177 Impressions: Tibia/Fibula X-Ray 12/23/16 12:39 IMPRESSION: No acute finding involving the tibia or fibula. There is a comminuted distal femoral fracture and advanced degenerative changes in the knee. Chest X-Ray 12/26/16 00:00 IMPRESSION: NO ACUTE RADIOGRAPHIC FINDING IN THE CHEST. Femur X-Ray 12/27/16 00:00 IMPRESSION: IMAGE(S) OBTAINED DURING PROCEDURE. Fluoroscopy 12/27/16 00:00 IMPRESSION: Please see combined report for performance of procedure and radiologic supervision and interpretation. Abdomen/Pelvis CT 12/29/16 00:00 IMPRESSION: There is fairly marked gas distention of the colon to the level of the rectosigmoid as noted above. There is a distinct transition point in the rectosigmoid which could represent a stricture and the possibility of a small mass cannot be excluded. Calcified gallstone is identified. Other findings as noted above Assessment & Plan - Diagnosis (1) Closed comminuted intra-articular fracture of distal end of right femur Qualifiers: Encounter type: initial encounter Qualified Code(s): S72.491A - Other fracture of lower end of right femur, initial encounter for closed fracture (2) Chronic lymphocytic leukemia Is this a current diagnosis for this admission?: Yes (3) Colon distention Is this a current diagnosis for this admission?: YesPlan: CT scan of the abdomen and pelvis showed markedly gaseous distention of the colon with transition point at the rectosigmoid, consultation is requested from surgery
--- NOTE | 2016-12-29 20:25 | PDOC CONSULTATION ---
Consultation Consult reason:: Abdominal distention History of Present Illness Admission Date/PCP: 12/27/16 12:00 History of Present Illness: 61-year-old female who has been bedbound since the fracturing her femur for the past several days. Patient had a colonoscopy done about a year ago was noted with just polyps at that time. Over the past 3 days she has had increasing abdominal distention along with the intermittent the nausea and vomiting after by mouth intake. She has been passing a little bit of gas. No bowel movement for several days now. Patient has the diffuse abdominal discomfort but no severe pain. She does have a history of CLL and has a chronic leukocytosis. She has not been having maintenance IV fluids but has been on a diet which she has not tolerated in the last couple of days. Past Medical History Cardiac Medical History: Denies: Coronary Artery Disease, Myocardial Infarction, Hypertension Pulmonary Medical History: Denies: Asthma, Bronchitis, Chronic Obstructive Pulmonary Disease (COPD), Pneumonia Neurological Medical History: Denies: Seizures Malignancy Medical History: Reports: Leukemia - Chronic lymphocytic leukemia, Other Musculoskeltal Medical History: Denies: Arthritis Social History Smoking Status: Current Every Day Smoker Frequency of Alcohol Use: None - Advance Directive Resuscitation Status: Full Code Family History Family History: Reviewed & Not Pertinent Parental Family History Reviewed: No Children Family History Reviewed: No Sibling(s) Family History Reviewed.: No Medication/Allergy Home Medications: Acetaminophen [Pain Relief] 2 tab PO ASDIR PRN 04/04/16 Aripiprazole [Abilify 10 mg Tablet] 10 mg PO QHS 04/04/16 Benztropine Mesylate 1 mg PO BID 04/04/16 Haloperidol 15 mg PO QHS 04/04/16 Lorazepam 1 mg PO TID 04/04/16 Risperidone [Risperidone Odt] 4 mg PO BID 04/04/16 Trazodone HCl [Desyrel 50 mg Tablet] 25 mg PO QHS 04/04/16 Omeprazole Magnesium [Prilosec Otc] 1 tab PO QAM 12/23/16 Allergies/Adverse Reactions: No Known Allergies Allergy (Verified 12/23/16 14:54) Physical Exam Vital Signs: Temp Pulse Resp BP Pulse Ox 97.6 F 128 H 18 119/79 94 12/28/16 23:50 12/28/16 23:50 12/28/16 23:50 12/28/16 23:50 12/28/16 23:50 Intake & Output 12/28/16 12/29/16 12/30/16 06:59 06:59 06:59 Intake Total 5090 612 210 Output Total 2180 1000 Balance 2910 -388 210 General appearance: PRESENT: no acute distress, cooperative Respiratory exam: PRESENT: clear to auscultation zara Cardiovascular exam: PRESENT: RRR GI/Abdominal exam: PRESENT: other - Patient's abdomen is distended and tympanitic with the marked diminished bowel sounds. She has mild diffuse abdominal tenderness but no peritoneal signs and no focal tenderness. Results Laboratory Results: 12/29/16 06:07 12/28/16 06:53 12/29/16 06:07 WBC 27.1 H RBC 3.40 L Hgb 9.3 L Hct 27.7 L MCV 81 MCH 27.4 MCHC 33.7 RDW 14.7 H Plt Count 177 Impressions: Tibia/Fibula X-Ray 12/23/16 12:39 IMPRESSION: No acute finding involving the tibia or fibula. There is a comminuted distal femoral fracture and advanced degenerative changes in the knee. Chest X-Ray 12/26/16 00:00 IMPRESSION: NO ACUTE RADIOGRAPHIC FINDING IN THE CHEST. Femur X-Ray 12/27/16 00:00 IMPRESSION: IMAGE(S) OBTAINED DURING PROCEDURE. Fluoroscopy 12/27/16 00:00 IMPRESSION: Please see combined report for performance of procedure and radiologic supervision and interpretation. Abdomen/Pelvis CT 12/29/16 00:00 IMPRESSION: There is fairly marked gas distention of the colon to the level of the rectosigmoid as noted above. There is a distinct transition point in the rectosigmoid which could represent a stricture and the possibility of a small mass cannot be excluded. Calcified gallstone is identified. Other findings as noted above Assessment & Plan - Diagnosis (1) Moody's syndrome Is this a current diagnosis for this admission?: YesPlan: Secondary to immobility, and narcotics. Her leukocytosis is secondary to CLL. In looking at her numbers the over the past 3 days I believe she is severely dehydrated which accounts for her tachycardia. I do not think she has colonic ischemia yet. Will place NG tube. Will rehydrate the patient. Keep the patient nothing by mouth. We'll give enema tonight. Will ask orthopedics whether we can ambulate the patient. Recommend limiting narcotics as much as possible. We'll repeat the abdominal x-rays tomorrow. If she fails to have improvement will consider colonoscopic decompression versus neostigmine.
[2016-12-29] MEDS ORDERED: ONDANSETRON 4 MG TAB.RAPDIS NG PRN (20:27)
[2016-12-29] MEDS ORDERED: PHARMACY COMMUNICATION ORDER MC NR (20:30)
[2016-12-29] MEDS ORDERED: MINERAL OIL ENEMA 133 ML PR ONE (21:00)
[2016-12-29] MEDS: NORMAL SALINE 1000 ML 1,000 ML IV PRN (21:08)
[2016-12-29] MEDS: LORAZEPAM 1 MG TABLET NG SCH (22:52)
[2016-12-29] MEDS: HALOPERIDOL 5 MG TABLET NG SCH (22:52)
[2016-12-29] MEDS: ARIPIPRAZOLE 5 MG TABLET NG SCH (22:52)
[2016-12-29] MEDS: TRAZODONE HCL 50 MG TABLET NG SCH (22:52)
[2016-12-29] MEDS: RIVAROXABAN 10 MG TABLET NG SCH (22:52)
[2016-12-29] MEDS: RISPERIDONE 1 MG TAB.RAPDIS NG SCH (22:52)
[2016-12-30] MEDS: NORMAL SALINE 1000 ML 1,000 ML IV PRN (01:53)
[2016-12-30] MEDS: LORAZEPAM 1 MG TABLET NG SCH ×2 (05:22→18:09)
[2016-12-30 07:11] LABS: HEMATOCRIT 25.4 % (36.0-47.0); HEMOGLOBIN 8.4 g/dL (12.0-15.5); HGB HCT DIFFERENCE -0.2; MEAN CORPUSCULAR HEMOGLOBIN 27.2 pg (27.0-33.4); MEAN CORPUSCULAR HGB CONC 33.2 g/dL (32.0-36.0); MEAN CORPUSCULAR VOLUME 82 fl (80-97); RED BLOOD COUNT 3.11 10^6/uL (3.72-5.28); RED CELL DISTRIBUTION WIDTH 15.3 % (11.5-14.0)
[2016-12-30 07:18] LABS: WHITE BLOOD COUNT 29.7 10^3/uL (4.0-10.5)
--- NOTE | 2016-12-30 07:27 | PDOC PROGRESS REPORT ---
Subjective Progress Note for:: 12/30/16 Subjective:: Patient seen this AM. Seen by urg for post op ileus. Pain controlled according to patient. According to nursing abdominal distention improved. Physical Exam Vital Signs: Temp Pulse Resp BP Pulse Ox 99.2 F 122 H 16 123/71 91 L 12/30/16 03:58 12/30/16 03:58 12/30/16 03:58 12/30/16 03:58 12/30/16 03:58 Intake & Output 12/29/16 12/30/16 12/31/16 06:59 06:59 06:59 Intake Total 612 1510 Output Total 1000 450 Balance -388 1060 Weight 102.8 kg Musculoskeletal exam: PRESENT: other - Right LE: Dressing changed. Thin bloody drainage from anterior aspect of the knee. No calf tenderness. Mininmal thigh/ knee swelling. Intact PF/DF. Results Laboratory Results: 12/30/16 06:07 12/28/16 06:53 12/29/16 12/30/16 06:07 06:07 WBC 27.1 H 29.7 H RBC 3.40 L 3.11 L Hgb 9.3 L 8.4 L Hct 27.7 L 25.4 L MCV 81 82 MCH 27.4 27.2 MCHC 33.7 33.2 RDW 14.7 H 15.3 H Plt Count 177 194 Impressions: Tibia/Fibula X-Ray 12/23/16 12:39 IMPRESSION: No acute finding involving the tibia or fibula. There is a comminuted distal femoral fracture and advanced degenerative changes in the knee. Chest X-Ray 12/26/16 00:00 IMPRESSION: NO ACUTE RADIOGRAPHIC FINDING IN THE CHEST. Femur X-Ray 12/27/16 00:00 IMPRESSION: IMAGE(S) OBTAINED DURING PROCEDURE. Fluoroscopy 12/27/16 00:00 IMPRESSION: Please see combined report for performance of procedure and radiologic supervision and interpretation. Abdomen/Pelvis CT 12/29/16 00:00 IMPRESSION: There is fairly marked gas distention of the colon to the level of the rectosigmoid as noted above. There is a distinct transition point in the rectosigmoid which could represent a stricture and the possibility of a small mass cannot be excluded. Calcified gallstone is identified. Other findings as noted above KUB X-Ray 12/29/16 20:17 IMPRESSION: 1. NASOGASTRIC TUBE DESCRIBED. RECOMMEND FURTHER ADVANCEMENT BY SEVERAL CM. 2. GAS-FILLED SMALL BOWEL AND COLON. Assessment & Plan - Diagnosis (1) Closed fracture of left distal femur Qualifiers: Encounter type: subsequent encounter Fracture morphology: other fracture Is this a current diagnosis for this admission?: YesPlan: Status post retrograde nail right distal femur fracture. #1 pain control will limit narcotics and postoperative ileus #2 physical therapy nonweightbearing right lower extremity #3 postop anemia awaiting today's H&H. #4 discharge planning patient will require [facility] facility when optimized. #5 DVT prophylaxis Xarelto and mechanical prophylaxis
[2016-12-30] MEDS: KETOROLAC TROMETHAMINE INJ/PF 30 MG/1 ML SDV IV PRN (10:30)
--- NOTE | 2016-12-30 11:34 | PDOC PROGRESS REPORT ---
Subjective Progress Note for:: 12/30/16 Subjective:: Minimal abdominal pain Physical Exam Vital Signs: Temp Pulse Resp BP Pulse Ox 98.3 F 126 H 17 119/84 94 12/30/16 07:23 12/30/16 07:23 12/30/16 07:23 12/30/16 07:23 12/30/16 08:54 Intake & Output 12/29/16 12/30/16 12/31/16 06:59 06:59 06:59 Intake Total 612 1510 Output Total 1000 450 Balance -388 1060 Weight 102.8 kg GI/Abdominal exam: PRESENT: other - Still distended, less, non tender Results Laboratory Results: 12/30/16 06:07 12/28/16 06:53 12/30/16 06:07 WBC 29.7 H RBC 3.11 L Hgb 8.4 L Hct 25.4 L MCV 82 MCH 27.2 MCHC 33.2 RDW 15.3 H Plt Count 194 Impressions: Tibia/Fibula X-Ray 12/23/16 12:39 IMPRESSION: No acute finding involving the tibia or fibula. There is a comminuted distal femoral fracture and advanced degenerative changes in the knee. Chest X-Ray 12/26/16 00:00 IMPRESSION: NO ACUTE RADIOGRAPHIC FINDING IN THE CHEST. Femur X-Ray 12/27/16 00:00 IMPRESSION: IMAGE(S) OBTAINED DURING PROCEDURE. Fluoroscopy 12/27/16 00:00 IMPRESSION: Please see combined report for performance of procedure and radiologic supervision and interpretation. Abdomen/Pelvis CT 12/29/16 00:00 IMPRESSION: There is fairly marked gas distention of the colon to the level of the rectosigmoid as noted above. There is a distinct transition point in the rectosigmoid which could represent a stricture and the possibility of a small mass cannot be excluded. Calcified gallstone is identified. Other findings as noted above KUB X-Ray 12/29/16 20:17 IMPRESSION: 1. NASOGASTRIC TUBE DESCRIBED. RECOMMEND FURTHER ADVANCEMENT BY SEVERAL CM. 2. GAS-FILLED SMALL BOWEL AND COLON. Abdomen X-Ray 12/30/16 07:00 IMPRESSION: Again there is gaseous distention of multiple large and small bowel loops essentially unchanged as compared to the previous study. NG position is noted above. Other findings as noted above Assessment & Plan - Plan Summary Plan Summary: Colonic Ileus Neostigmin injections Fleet enemas
[2016-12-30] MEDS: BENZTROPINE MESYLATE 1 MG TABLET NG SCH ×2 (12:44→18:09)
[2016-12-30] MEDS: RISPERIDONE 1 MG TAB.RAPDIS NG SCH ×2 (12:44→22:31)
[2016-12-30] MEDS: LANSOPRAZOLE 15 MG TAB.RAP.DR NG SCH (12:44)
[2016-12-30] MEDS: NEOSTIGMINE METHYLSULFATE 10 MG/10 ML VIAL SUBCUT SCH (18:10)
[2016-12-30] MEDS: NA PHOS,M-B/NA PHOS,DI-BA (ADULT) 133 ML ENEMA PR SCH (18:10)
--- NOTE | 2016-12-30 21:45 | PDOC PROGRESS REPORT ---
Subjective Progress Note for:: 12/30/16 Subjective:: She was seen by the bedside she has postoperative colonic ileus she was seen by the surgeon as well Physical Exam Vital Signs: Temp Pulse Resp BP Pulse Ox 98.1 F 116 H 17 127/71 H 93 12/30/16 15:08 12/30/16 15:08 12/30/16 15:08 12/30/16 15:08 12/30/16 15:08 Intake & Output 12/29/16 12/30/16 12/31/16 06:59 06:59 06:59 Intake Total 612 1510 1800 Output Total 1000 450 265 Balance -388 1060 1535 Weight 102.8 kg General appearance: PRESENT: no acute distress Eye exam: PRESENT: PERRLA Respiratory exam: PRESENT: clear to auscultation zara Cardiovascular exam: PRESENT: +S1, +S2 GI/Abdominal exam: PRESENT: distended Neurological exam: PRESENT: alert Results Laboratory Results: 12/30/16 06:07 12/28/16 06:53 12/30/16 06:07 WBC 29.7 H RBC 3.11 L Hgb 8.4 L Hct 25.4 L MCV 82 MCH 27.2 MCHC 33.2 RDW 15.3 H Plt Count 194 Impressions: Tibia/Fibula X-Ray 12/23/16 12:39 IMPRESSION: No acute finding involving the tibia or fibula. There is a comminuted distal femoral fracture and advanced degenerative changes in the knee. Chest X-Ray 12/26/16 00:00 IMPRESSION: NO ACUTE RADIOGRAPHIC FINDING IN THE CHEST. Femur X-Ray 12/27/16 00:00 IMPRESSION: IMAGE(S) OBTAINED DURING PROCEDURE. Fluoroscopy 12/27/16 00:00 IMPRESSION: Please see combined report for performance of procedure and radiologic supervision and interpretation. Abdomen/Pelvis CT 12/29/16 00:00 IMPRESSION: There is fairly marked gas distention of the colon to the level of the rectosigmoid as noted above. There is a distinct transition point in the rectosigmoid which could represent a stricture and the possibility of a small mass cannot be excluded. Calcified gallstone is identified. Other findings as noted above KUB X-Ray 12/29/16 20:17 IMPRESSION: 1. NASOGASTRIC TUBE DESCRIBED. RECOMMEND FURTHER ADVANCEMENT BY SEVERAL CM. 2. GAS-FILLED SMALL BOWEL AND COLON. Abdomen X-Ray 12/30/16 07:00 IMPRESSION: Again there is gaseous distention of multiple large and small bowel loops essentially unchanged as compared to the previous study. NG position is noted above. Other findings as noted above Assessment & Plan - Diagnosis (1) Closed comminuted intra-articular fracture of distal end of right femur Qualifiers: Encounter type: initial encounter Qualified Code(s): S72.491A - Other fracture of lower end of right femur, initial encounter for closed fracture (2) Chronic lymphocytic leukemia Is this a current diagnosis for this admission?: Yes (3) Colon distention Is this a current diagnosis for this admission?: Yes (4) Mariela's syndrome Is this a current diagnosis for this admission?: Yes
[2016-12-30] MEDS: ARIPIPRAZOLE 5 MG TABLET NG SCH (22:31)
[2016-12-30] MEDS: HALOPERIDOL 5 MG TABLET NG SCH (22:31)
[2016-12-30] MEDS: RIVAROXABAN 10 MG TABLET NG SCH (22:31)
[2016-12-30] MEDS: TRAZODONE HCL 50 MG TABLET NG SCH (22:31)
[2016-12-31] MEDS: NEOSTIGMINE METHYLSULFATE 10 MG/10 ML VIAL SUBCUT SCH ×4 (02:56→23:55)
[2016-12-31] MEDS: NORMAL SALINE 1000 ML 1,000 ML IV PRN (05:33)
[2016-12-31] MEDS: LANSOPRAZOLE 15 MG TAB.RAP.DR NG SCH (08:26)
[2016-12-31] MEDS: RISPERIDONE 1 MG TAB.RAPDIS NG SCH ×2 (09:22→21:53)
[2016-12-31] MEDS: BENZTROPINE MESYLATE 1 MG TABLET NG SCH ×2 (09:22→17:47)
[2016-12-31] MEDS: NA PHOS,M-B/NA PHOS,DI-BA (ADULT) 133 ML ENEMA PR SCH ×2 (09:22→17:48)
[2016-12-31] MEDS ORDERED: GLUCAGON,HUMAN RECOMB 1 MG INJ ONE (11:16)
--- NOTE | 2016-12-31 11:32 | PDOC PROGRESS REPORT ---
Subjective Progress Note for:: 12/31/16 Subjective:: Patient is being transferred to [facility] to go downstairs for colonoscopy. No issues overnight. NG tube is in place for a postop ileus. Physical Exam Vital Signs: Temp Pulse Resp BP Pulse Ox 36.8 C 116 H 21 H 111/47 L 95 12/31/16 09:52 12/31/16 09:52 12/31/16 09:52 12/31/16 09:52 12/31/16 09:52 Intake & Output 12/30/16 12/31/16 01/01/17 06:59 06:59 07:59 Intake Total 1510 1800 Output Total 450 265 Balance 1060 1535 Weight 102.8 kg 103.8 kg Adult Front & Back Image: 1 - Dressings are dry clean and intact. Knee immobilizer is in place and intact. Patient is neurovascularly intact distally. Results Laboratory Results: 12/30/16 06:07 12/28/16 06:53 Impressions: Tibia/Fibula X-Ray 12/23/16 12:39 IMPRESSION: No acute finding involving the tibia or fibula. There is a comminuted distal femoral fracture and advanced degenerative changes in the knee. Chest X-Ray 12/26/16 00:00 IMPRESSION: NO ACUTE RADIOGRAPHIC FINDING IN THE CHEST. Femur X-Ray 12/27/16 00:00 IMPRESSION: IMAGE(S) OBTAINED DURING PROCEDURE. Fluoroscopy 12/27/16 00:00 IMPRESSION: Please see combined report for performance of procedure and radiologic supervision and interpretation. Abdomen/Pelvis CT 12/29/16 00:00 IMPRESSION: There is fairly marked gas distention of the colon to the level of the rectosigmoid as noted above. There is a distinct transition point in the rectosigmoid which could represent a stricture and the possibility of a small mass cannot be excluded. Calcified gallstone is identified. Other findings as noted above KUB X-Ray 12/29/16 20:17 IMPRESSION: 1. NASOGASTRIC TUBE DESCRIBED. RECOMMEND FURTHER ADVANCEMENT BY SEVERAL CM. 2. GAS-FILLED SMALL BOWEL AND COLON. Abdomen X-Ray 12/30/16 07:00 IMPRESSION: Again there is gaseous distention of multiple large and small bowel loops essentially unchanged as compared to the previous study. NG position is noted above. Other findings as noted above Assessment & Plan - Plan Summary Plan Summary: 61-year-old female status post retrograde nailing of her right distal femur fracture. General surgery is managing her postop ileus. Continue knee immobilizer to right lower extremity and nonweightbearing her right lower extremity. Continue DVT prophylaxis judicious pain control
[2016-12-31] MEDS ORDERED: PROPOFOL INJ 200 MG/20 ML VIAL IV ONE (11:33)
[2016-12-31] MEDS ORDERED: PROMETHAZINE HCL INJ 25 MG/1 ML VIAL IV PRN ×2 (11:35)
[2016-12-31] MEDS ORDERED: MEPERIDINE HCL/PF INJ 25 MG/1 ML DISP.SYRIN IV PRN (11:35)
[2016-12-31] MEDS ORDERED: MORPHINE SULFATE 10 MG/ML INJ IV PRN (11:35)
[2016-12-31] MEDS ORDERED: FENTANYL CITRATE INJ/PF 100 MCG/2 ML AMPUL IV PRN ×3 (11:35)
[2016-12-31] MEDS ORDERED: DIPHENHYDRAMINE HCL 50 MG/ML VIAL IV PRN (11:35)
--- NOTE | 2016-12-31 12:13 | PDOC PROGRESS REPORT ---
Subjective Progress Note for:: 12/31/16 Subjective:: Remain on NG tube decompression for colonic ileus management. She is schedule for therapeutic colonoscopy today. No reported fever. No chest pain or difficulty with breathing. No reported diarrhea. Physical Exam Vital Signs: Temp Pulse Resp BP Pulse Ox 98.2 F 116 H 21 H 111/47 L 95 12/31/16 09:52 12/31/16 09:52 12/31/16 09:52 12/31/16 09:52 12/31/16 09:52 Intake & Output 12/30/16 12/31/16 01/01/17 06:59 06:59 07:59 Intake Total 1510 1800 Output Total 450 265 Balance 1060 1535 Weight 102.8 kg 103.8 kg General appearance: PRESENT: no acute distress, cooperative Head exam: PRESENT: atraumatic, normocephalic Eye exam: PRESENT: conjunctiva pink, EOMI, PERRLA. ABSENT: scleral icterus Mouth exam: PRESENT: moist, other - NG tube in situ Respiratory exam: PRESENT: clear to auscultation zara Cardiovascular exam: PRESENT: RRR. ABSENT: diastolic murmur, rubs, systolic murmur GI/Abdominal exam: PRESENT: distended. ABSENT: ascites, diminished bowel sounds , firm, guarding, hernia, hyperactive bowel sounds, hypoactive bowel sounds, mass, Jacobson's sign, normal bowel sounds, organolmegaly, rebound, rigid, soft, tenderness, other Musculoskeletal exam: PRESENT: deformity - related to arthritis joint involvement Neurological exam: PRESENT: alert, awake, oriented to person, oriented to place , oriented to time, oriented to situation, CN II-XII grossly intact. ABSENT: motor sensory deficit Psychiatric exam: PRESENT: appropriate affect, normal mood. ABSENT: homicidal ideation, suicidal ideation Skin exam: PRESENT: dry, warm, other - site of right distal femoral fracture surgery dressing satisfactory. Results Laboratory Results: 12/30/16 06:07 12/28/16 06:53 Impressions: Tibia/Fibula X-Ray 12/23/16 12:39 IMPRESSION: No acute finding involving the tibia or fibula. There is a comminuted distal femoral fracture and advanced degenerative changes in the knee. Chest X-Ray 12/26/16 00:00 IMPRESSION: NO ACUTE RADIOGRAPHIC FINDING IN THE CHEST. Femur X-Ray 12/27/16 00:00 IMPRESSION: IMAGE(S) OBTAINED DURING PROCEDURE. Fluoroscopy 12/27/16 00:00 IMPRESSION: Please see combined report for performance of procedure and radiologic supervision and interpretation. Abdomen/Pelvis CT 12/29/16 00:00 IMPRESSION: There is fairly marked gas distention of the colon to the level of the rectosigmoid as noted above. There is a distinct transition point in the rectosigmoid which could represent a stricture and the possibility of a small mass cannot be excluded. Calcified gallstone is identified. Other findings as noted above KUB X-Ray 12/29/16 20:17 IMPRESSION: 1. NASOGASTRIC TUBE DESCRIBED. RECOMMEND FURTHER ADVANCEMENT BY SEVERAL CM. 2. GAS-FILLED SMALL BOWEL AND COLON. Abdomen X-Ray 12/30/16 07:00 IMPRESSION: Again there is gaseous distention of multiple large and small bowel loops essentially unchanged as compared to the previous study. NG position is noted above. Other findings as noted above Assessment & Plan - Diagnosis (1) Probable sepsis Is this a current diagnosis for this admission?: YesPlan: Patient continue to demonstrate leukocytosis. She has CLL but her leukocytosis has left shift. Her colonic distention may be reflection and possible site of infection. I will obtain blood culture x 2 sets. Differential evaluation of earlier CBC today. Start on IV Metronidazole and Ciprofloxacin coverage. (2) Chronic lymphocytic leukemia Is this a current diagnosis for this admission?: YesPlan: See covering physician orders. Further complicate her immune status and increase risk of infection. (3) Closed comminuted intra-articular fracture of distal end of right femur Qualifiers: Encounter type: initial encounter Qualified Code(s): S72.491A - Other fracture of lower end of right femur, initial encounter for closed fracture Is this a current diagnosis for this admission?: YesPlan: Continue orthopedic recommendation with regard to knee immobilization and non- weight bearing status. Maintain on DVT prophylaxis with Xarelto and closely monitor her Hemoglobin. (4) [place]'s syndrome Is this a current diagnosis for this admission?: YesPlan: See covering attending orders. She will remain on NG tube conservative management. Follow up on colonoscopy findings. - Time Time Spent with patient: 35 or more minutes Medications reviewed and adjusted accordingly: Yes Anticipated discharge: SNF Within: Other - Inpatient Certification Based on my medical assessment, after consideration of the patient's comorbidities, presenting symptoms, or acuity I expect that the services needed warrant INPATIENT care.: Yes I certify that my determination is in accordance with my understanding of Medicare's requirements for reasonable and necessary INPATIENT services [42 CFR 412.3e].: Yes Medical Necessity: Need Close Monitoring Due to Risk of Patient Decompensation, Need For IV Fluids, Need for IV Antibiotics, Need for Surgery, Risk of Diagnosis Which Will Require Inpatient Eval/Care/Monitoring Post Hospital Care: D/C or Transfer Summary - Plan Summary Plan Summary: See covering physician orders.
[2016-12-31] MEDS: METRONIDAZOLE 500 MG/NS RTU 100 ML IV SCH ×2 (14:50→20:49)
[2016-12-31 16:54] LABS: HEMATOCRIT 22.4 % (36.0-47.0); HGB HCT DIFFERENCE -0.2; MEAN CORPUSCULAR HEMOGLOBIN 27.4 pg (27.0-33.4); MEAN CORPUSCULAR VOLUME 83 fl (80-97); RED CELL DISTRIBUTION WIDTH 15.3 % (11.5-14.0); WHITE BLOOD COUNT 23.5 10^3/uL (4.0-10.5)
[2016-12-31 17:11] LABS: BASOPHILS % (MANUAL) 0 % (0-2); EOSINOPHILS % (MANUAL) 0 % (0-6); LYMPHOCYTES % (MANUAL) 22 % (13-45); NUCLEATED RED BLOOD CELLS 3 /100 WBC (0); TOTAL CELLS COUNTED 100
[2016-12-31 17:35] LABS: ANISOCYTOSIS SLIGHT; HYPOCHROMASIA SLIGHT
[2016-12-31 17:39] LABS: HEMOGLOBIN 7.4 g/dL (12.0-15.5)
--- NOTE | 2016-12-31 19:34 | OPERATIVE REPORT E ---
Operative Report NAME: INDY VENTURA : 1955 AGE: 61Y DATE OF SURGERY: 12/31/2016 ROOM: 404 PREOPERATIVE DIAGNOSES: 1. A 61-year-old female Patient with a history of orthopedic trauma, fracture. 2. History of schizophrenia and bipolar disorder, on medications. POSTOPERATIVE DIAGNOSES: 1. Severe colonic after orthopedic procedure. Not resolving . She needs to have a colonoscopy to rule out a colonic obstruction and then colonic decompression. 2. Complete colonoscopy with decompression . No obstructive lesions. OPERATION: Complete colonoscopy to the cecum with decompression of colon by suctioning all the air and liquid stool. SURGEON: REY PRICE M.D. BLOOD LOSS: None. SPECIMENS: None. HISTORY AND INDICATION: As described. DESCRIPTION OF PROCEDURE: The patient was placed in the left lateral position with monitored anesthesia care. Digital rectal examination, no palpable masses found. Then colonoscope was introduced through anal canal and advanced under direct laparoscopic visualization all the way to the cecum. The cecum was identified by ileocecal valve. scope withdrawn and colon reexamined. FINDINGS: The colon was significantly distended. No ischemia. No ischemic colitis. No obstructive lesions. No strictures were seen. A few diverticula on the left colon but no diverticulitis. colonoscope and most of the air and liquid stool was suctioned out as much as possible to decompress the colon. Patient tolerated the procedure very well. DICTATING PHYSICIAN: REY PRICE M.D. [id number] PHY#: [id number] ID: [id number] JOB#: [id number] ACCT: [id number] cc:REY PRICE M.D. > [facility]
[2016-12-31] MEDS: TRAZODONE HCL 50 MG TABLET NG SCH (21:53)
[2016-12-31] MEDS: ARIPIPRAZOLE 5 MG TABLET NG SCH (21:54)
[2016-12-31] MEDS: RIVAROXABAN 10 MG TABLET NG SCH (21:54)
[2016-12-31] MEDS: HALOPERIDOL 5 MG TABLET NG SCH (21:54)
[2017-01-01] MEDS: CIPROFLOXACIN 400 MG/D5W RTU 200 ML IV SCH ×3 (01:14→22:37)
[2017-01-01] MEDS: METRONIDAZOLE 500 MG/NS RTU 100 ML IV SCH ×4 (03:00→22:31)
[2017-01-01] MEDS: NEOSTIGMINE METHYLSULFATE 10 MG/10 ML VIAL SUBCUT SCH ×2 (05:03→11:41)
[2017-01-01] MEDS: LANSOPRAZOLE 15 MG TAB.RAP.DR NG SCH (07:43)
[2017-01-01] MEDS: ACETAMINOPHEN 325 MG TABLET NG PRN (08:11)
--- NOTE | 2017-01-01 09:22 | PDOC PROGRESS REPORT ---
Subjective Progress Note for:: 01/01/17 Subjective:: No chest pain or difficulty with breathing. No reported fever or chills. No nausea or vomiting. She denied any abdominal pain. Tolerating clear liquid since colonoscopy. Denied diarrhea. Physical Exam Vital Signs: Temp Pulse Resp BP Pulse Ox 98.6 F 99 24 H 136/58 H 96 01/01/17 07:28 01/01/17 07:28 01/01/17 07:28 01/01/17 07:28 01/01/17 07:28 Intake & Output 12/31/16 01/01/17 01/02/17 05:59 06:59 06:59 Intake Total 350 Output Total Balance 350 Weight Physical Exam: General appearance: PRESENT: no acute distress, cooperative Head exam: PRESENT: atraumatic, normocephalic Eye exam: PRESENT: conjunctiva pink, EOMI, PERRLA. ABSENT: scleral icterus Mouth exam: PRESENT: moist, other - NG tube in situ Respiratory exam: PRESENT: clear to auscultation zara Cardiovascular exam: PRESENT: RRR. ABSENT: diastolic murmur, rubs, systolic murmur GI/Abdominal exam: PRESENT: distended. ABSENT: ascites, diminished bowel sounds , firm, guarding, hernia, hyperactive bowel sounds, hypoactive bowel sounds, mass, Jacobson's sign, normal bowel sounds, organomegaly, rebound, rigid, soft, tenderness, other Musculoskeletal exam: PRESENT: deformity - related to arthritis joint involvement. External immobilizer in use. Neurological exam: PRESENT: alert, awake, oriented to person, oriented to place , oriented to time, oriented to situation, CN II-XII grossly intact. ABSENT: motor sensory deficit Psychiatric exam: PRESENT: appropriate affect, normal mood. ABSENT: homicidal ideation, suicidal ideation Skin exam: PRESENT: dry, warm, other - site of right distal femoral fracture surgery dressing satisfactory. Results Laboratory Results: 12/31/16 16:41 12/28/16 06:53 12/31/16 12/31/16 16:41 18:35 WBC 23.5 H RBC 2.70 L Hgb 7.4 L Hct 22.4 L MCV 83 MCH 27.4 MCHC 33.0 RDW 15.3 H Plt Count 197 Seg Neutrophils % Not Reportable Lymphocytes % Not Reportable Monocytes % Not Reportable Eosinophils % Not Reportable Basophils % Not Reportable Absolute Neutrophils Not Reportable Absolute Lymphocytes Not Reportable Absolute Monocytes Not Reportable Absolute Eosinophils Not Reportable Absolute Basophils Not Reportable Blood Type O POSITIVE Antibody Screen NEGATIVE Impressions: Tibia/Fibula X-Ray 12/23/16 12:39 IMPRESSION: No acute finding involving the tibia or fibula. There is a comminuted distal femoral fracture and advanced degenerative changes in the knee. Chest X-Ray 12/26/16 00:00 IMPRESSION: NO ACUTE RADIOGRAPHIC FINDING IN THE CHEST. Femur X-Ray 12/27/16 00:00 IMPRESSION: IMAGE(S) OBTAINED DURING PROCEDURE. Fluoroscopy 12/27/16 00:00 IMPRESSION: Please see combined report for performance of procedure and radiologic supervision and interpretation. Abdomen/Pelvis CT 12/29/16 00:00 IMPRESSION: There is fairly marked gas distention of the colon to the level of the rectosigmoid as noted above. There is a distinct transition point in the rectosigmoid which could represent a stricture and the possibility of a small mass cannot be excluded. Calcified gallstone is identified. Other findings as noted above KUB X-Ray 12/29/16 20:17 IMPRESSION: 1. NASOGASTRIC TUBE DESCRIBED. RECOMMEND FURTHER ADVANCEMENT BY SEVERAL CM. 2. GAS-FILLED SMALL BOWEL AND COLON. Abdomen X-Ray 12/30/16 07:00 IMPRESSION: Again there is gaseous distention of multiple large and small bowel loops essentially unchanged as compared to the previous study. NG position is noted above. Other findings as noted above Assessment & Plan - Diagnosis (1) Probable sepsis Is this a current diagnosis for this admission?: YesPlan: Patient demonstrate downward trend in her leukocytosis. Continue IV Metronidazole and Ciprofloxacin. Follow up on blood culture findings. (2) Chronic lymphocytic leukemia Is this a current diagnosis for this admission?: YesPlan: See covering attending physician orders. (3) Closed comminuted intra-articular fracture of distal end of right femur Qualifiers: Encounter type: initial encounter Qualified Code(s): S72.491A - Other fracture of lower end of right femur, initial encounter for closed fracture Is this a current diagnosis for this admission?: YesPlan: Continue orthopedic recommendation with regard to knee immobilization and non- weight bearing status. Maintain on DVT prophylaxis with Xarelto and closely monitor her Hemoglobin. (4) [place]'s syndrome Is this a current diagnosis for this admission?: YesPlan: See covering attending physician orders. Abdomen still demonstrate some distention but no demonstrable tenderness. (5) Anemia due to chronic illness Is this a current diagnosis for this admission?: YesPlan: Patient was transfused 2 units PRBC since last clinical evaluation. Awaiting post-transfusion CBC. Probable causes include her underlying CLL as chronic illness but other considerations will include hemodilution, acute loss from recent fracture and surgery. 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
[2017-01-01 09:35] LABS: HEMATOCRIT 29.9 % (36.0-47.0); HGB HCT DIFFERENCE -0.5; MEAN CORPUSCULAR HEMOGLOBIN 27.5 pg (27.0-33.4); MEAN CORPUSCULAR HGB CONC 32.8 g/dL (32.0-36.0); MEAN CORPUSCULAR VOLUME 84 fl (80-97); RED BLOOD COUNT 3.57 10^6/uL (3.72-5.28); RED CELL DISTRIBUTION WIDTH 14.9 % (11.5-14.0)
[2017-01-01 09:51] LABS: ALANINE AMINOTRANSFERASE 31 U/L (9-52); ALBUMIN 2.6 g/dL (3.5-5.0); ALKALINE PHOSPHATASE 95 U/L (38-126); ANION GAP 8 (5-19); ASPARTATE AMINO TRANSFERASE 30 U/L (14-36); BILIRUBIN,TOTAL 2.4 mg/dL (0.2-1.3); BLOOD UREA NITROGEN 18 mg/dL (7-20); CALCIUM 8.3 mg/dL (8.4-10.2); CARBON DIOXIDE 28 mmol/L (22-30); CHLORIDE 98 mmol/L (98-107); CREATININE RESULT 0.53 mg/dL (0.52-1.25); GLUCOSE 120 mg/dL (75-110); SODIUM 134.4 mmol/L (137-145)
[2017-01-01 09:59] LABS: BAND NEUTROPHILS % (MANUAL) 1 % (3-5); BASOPHILS % (MANUAL) 0 % (0-2); EOSINOPHILS % (MANUAL) 1 % (0-6); LYMPHOCYTES % (MANUAL) 32 % (13-45); NUCLEATED RED BLOOD CELLS 3 /100 WBC (0); TOTAL CELLS COUNTED 100
[2017-01-01 10:01] LABS: ANISOCYTOSIS 1+; HYPOCHROMASIA SLIGHT; POLYCHROMASIA SLIGHT
[2017-01-01 10:02] LABS: HEMOGLOBIN 9.8 g/dL (12.0-15.5)
[2017-01-01 10:04] LABS: POTASSIUM 2.6 mmol/L (3.6-5.0)
[2017-01-01] MEDS: RISPERIDONE 1 MG TAB.RAPDIS NG SCH ×2 (10:17→22:37)
[2017-01-01] MEDS: BENZTROPINE MESYLATE 1 MG TABLET NG SCH ×2 (10:17→17:47)
[2017-01-01] MEDS: POTASSI CL 20 MEQ/50 ML RIDER 20 MEQ/50 ML RTUPB IV SCH ×3 (11:21→17:47)
--- NOTE | 2017-01-01 17:52 | PDOC PROGRESS REPORT ---
Subjective Progress Note for:: 01/01/17 Subjective:: Feeling better Tolerating clear liquids Physical Exam Vital Signs: Temp Pulse Resp BP Pulse Ox 98.3 F 103 H 20 127/65 H 98 01/01/17 16:33 01/01/17 16:33 01/01/17 16:33 01/01/17 16:33 01/01/17 16:33 Intake & Output 12/31/16 01/01/17 01/02/17 05:59 06:59 06:59 Intake Total 550 Output Total 1000 Balance -450 Weight GI/Abdominal exam: PRESENT: other - Abdomen less distended, soft Results Laboratory Results: 01/01/17 09:05 01/01/17 09:05 12/31/16 12/31/16 01/01/17 16:41 18:35 09:05 WBC 23.5 H 24.0 H RBC 2.70 L 3.57 L Hgb 7.4 L 9.8 L D Hct 22.4 L 29.9 L MCV 83 84 MCH 27.4 27.5 MCHC 33.0 32.8 RDW 15.3 H 14.9 H Plt Count 197 188 Seg Neutrophils % Not Reportable Not Reportable Lymphocytes % Not Reportable Not Reportable Monocytes % Not Reportable Not Reportable Eosinophils % Not Reportable Not Reportable Basophils % Not Reportable Not Reportable Absolute Neutrophils Not Reportable Not Reportable Absolute Lymphocytes Not Reportable Not Reportable Absolute Monocytes Not Reportable Not Reportable Absolute Eosinophils Not Reportable Not Reportable Absolute Basophils Not Reportable Not Reportable Sodium Potassium Chloride Carbon Dioxide Anion Gap BUN Creatinine Est GFR ( Amer) Est GFR (Non-Af Amer) Glucose Calcium Magnesium Total Bilirubin AST ALT Alkaline Phosphatase Total Protein Albumin Blood Type O POSITIVE Antibody Screen NEGATIVE 01/01/17 01/01/17 09:05 09:05 WBC RBC Hgb Hct MCV MCH MCHC RDW Plt Count Seg Neutrophils % Lymphocytes % Monocytes % Eosinophils % Basophils % Absolute Neutrophils Absolute Lymphocytes Absolute Monocytes Absolute Eosinophils Absolute Basophils Sodium 134.4 L Potassium 2.6 L* Chloride 98 Carbon Dioxide 28 Anion Gap 8 BUN 18 Creatinine 0.53 Est GFR ( Amer) > 60 Est GFR (Non-Af Amer) > 60 Glucose 120 H Calcium 8.3 L Magnesium 2.2 Total Bilirubin 2.4 H AST 30 ALT 31 Alkaline Phosphatase 95 Total Protein 5.0 L Albumin 2.6 L Blood Type Antibody Screen Impressions: Tibia/Fibula X-Ray 12/23/16 12:39 IMPRESSION: No acute finding involving the tibia or fibula. There is a comminuted distal femoral fracture and advanced degenerative changes in the knee. Chest X-Ray 12/26/16 00:00 IMPRESSION: NO ACUTE RADIOGRAPHIC FINDING IN THE CHEST. Femur X-Ray 12/27/16 00:00 IMPRESSION: IMAGE(S) OBTAINED DURING PROCEDURE. Fluoroscopy 12/27/16 00:00 IMPRESSION: Please see combined report for performance of procedure and radiologic supervision and interpretation. Abdomen/Pelvis CT 12/29/16 00:00 IMPRESSION: There is fairly marked gas distention of the colon to the level of the rectosigmoid as noted above. There is a distinct transition point in the rectosigmoid which could represent a stricture and the possibility of a small mass cannot be excluded. Calcified gallstone is identified. Other findings as noted above KUB X-Ray 12/29/16 20:17 IMPRESSION: 1. NASOGASTRIC TUBE DESCRIBED. RECOMMEND FURTHER ADVANCEMENT BY SEVERAL CM. 2. GAS-FILLED SMALL BOWEL AND COLON. Abdomen X-Ray 12/30/16 07:00 IMPRESSION: Again there is gaseous distention of multiple large and small bowel loops essentially unchanged as compared to the previous study. NG position is noted above. Other findings as noted above Assessment & Plan - Plan Summary Plan Summary: Colonic Ileus No obtruction - s/p complete colonoscopy with decompression Clear liquid diet Physical therapy
[2017-01-01] MEDS: NORMAL SALINE 1000 ML 1,000 ML IV PRN (17:53)
[2017-01-01] MEDS: LACTULOSE SYRUP 20 GM/30 ML UDCUP PO SCH (18:16)
[2017-01-01] MEDS: TRAZODONE HCL 50 MG TABLET NG SCH (22:32)
[2017-01-01] MEDS: RIVAROXABAN 10 MG TABLET NG SCH (22:32)
[2017-01-01] MEDS: ARIPIPRAZOLE 5 MG TABLET NG SCH (22:32)
[2017-01-01] MEDS: HALOPERIDOL 5 MG TABLET NG SCH (22:32)
[2017-01-02] MEDS: METRONIDAZOLE 500 MG/NS RTU 100 ML IV SCH ×4 (03:41→21:29)
--- NOTE | 2017-01-02 07:54 | PDOC PROGRESS REPORT ---
Subjective Progress Note for:: 01/02/17 Subjective:: Patient lying in bed comfortably. Pain controlled. Denies CP/SOB. Requires moderate asst in PT and having difficulty maintaining NWB restrictions. Physical Exam Vital Signs: Temp Pulse Resp BP Pulse Ox 98.5 F 101 H 18 146/73 H 98 01/01/17 23:21 01/01/17 23:21 01/01/17 23:21 01/01/17 23:21 01/01/17 23:21 Intake & Output 01/01/17 01/02/17 01/03/17 06:59 06:59 06:59 Intake Total 2509 Output Total 1600 Balance 909 Weight Musculoskeletal exam: PRESENT: other - Right LE: Dressing c/d/i, intact PF/DF, minimal thigh swelling. No calf tenderness, negative Alyssia's Results Laboratory Results: 01/01/17 09:05 01/01/17 09:05 01/01/17 01/01/17 01/01/17 09:05 09:05 09:05 WBC 24.0 H RBC 3.57 L Hgb 9.8 L D Hct 29.9 L MCV 84 MCH 27.5 MCHC 32.8 RDW 14.9 H Plt Count 188 Seg Neutrophils % Not Reportable Lymphocytes % Not Reportable Monocytes % Not Reportable Eosinophils % Not Reportable Basophils % Not Reportable Absolute Neutrophils Not Reportable Absolute Lymphocytes Not Reportable Absolute Monocytes Not Reportable Absolute Eosinophils Not Reportable Absolute Basophils Not Reportable Sodium 134.4 L Potassium 2.6 L* Chloride 98 Carbon Dioxide 28 Anion Gap 8 BUN 18 Creatinine 0.53 Est GFR ( Amer) > 60 Est GFR (Non-Af Amer) > 60 Glucose 120 H Calcium 8.3 L Magnesium 2.2 Total Bilirubin 2.4 H AST 30 ALT 31 Alkaline Phosphatase 95 Total Protein 5.0 L Albumin 2.6 L Impressions: Tibia/Fibula X-Ray 12/23/16 12:39 IMPRESSION: No acute finding involving the tibia or fibula. There is a comminuted distal femoral fracture and advanced degenerative changes in the knee. Chest X-Ray 12/26/16 00:00 IMPRESSION: NO ACUTE RADIOGRAPHIC FINDING IN THE CHEST. Femur X-Ray 12/27/16 00:00 IMPRESSION: IMAGE(S) OBTAINED DURING PROCEDURE. Fluoroscopy 12/27/16 00:00 IMPRESSION: Please see combined report for performance of procedure and radiologic supervision and interpretation. Abdomen/Pelvis CT 12/29/16 00:00 IMPRESSION: There is fairly marked gas distention of the colon to the level of the rectosigmoid as noted above. There is a distinct transition point in the rectosigmoid which could represent a stricture and the possibility of a small mass cannot be excluded. Calcified gallstone is identified. Other findings as noted above KUB X-Ray 12/29/16 20:17 IMPRESSION: 1. NASOGASTRIC TUBE DESCRIBED. RECOMMEND FURTHER ADVANCEMENT BY SEVERAL CM. 2. GAS-FILLED SMALL BOWEL AND COLON. Abdomen X-Ray 12/30/16 07:00 IMPRESSION: Again there is gaseous distention of multiple large and small bowel loops essentially unchanged as compared to the previous study. NG position is noted above. Other findings as noted above Assessment & Plan - Diagnosis (1) Closed fracture of left distal femur Qualifiers: Encounter type: subsequent encounter Fracture morphology: other fracture Is this a current diagnosis for this admission?: YesPlan: S/P Right Distal Femur Retrograde Nail 1. PT: NWB 2. Xarelto DVT Prophylaxis continue to monitor H/H if decreases will consider discontinuation of DVT Prophylaxis 3. Pain control 4. Post Op Ilieus likely secondary to prolonged initial immobilization and pain control required preoperatively. General surgery monitoring 5. D/C Planning: will require SNF when medically optimized.
[2017-01-02] MEDS: LANSOPRAZOLE 15 MG TAB.RAP.DR NG SCH (09:57)
[2017-01-02] MEDS: BENZTROPINE MESYLATE 1 MG TABLET NG SCH ×2 (09:58→18:48)
[2017-01-02] MEDS: CIPROFLOXACIN 400 MG/D5W RTU 200 ML IV SCH ×2 (09:58→21:32)
[2017-01-02] MEDS: RISPERIDONE 1 MG TAB.RAPDIS NG SCH ×2 (09:58→21:33)
--- NOTE | 2017-01-02 11:41 | PDOC PROGRESS REPORT ---
Subjective Progress Note for:: 01/02/17 Subjective:: The patient is Gatoring in the back. Physical Exam Vital Signs: Temp Pulse Resp BP Pulse Ox 98.5 F 101 H 18 146/73 H 98 01/01/17 23:21 01/01/17 23:21 01/01/17 23:21 01/01/17 23:21 01/01/17 23:21 Intake & Output 01/01/17 01/02/17 01/03/17 06:59 06:59 06:59 Intake Total 2509 Output Total 1600 Balance 909 Weight General appearance: PRESENT: no acute distress GI/Abdominal exam: PRESENT: other - Name is minimally distended, bowel sounds are hypoactive. No peritoneal signs. Results Laboratory Results: 01/01/17 09:05 01/01/17 09:05 Impressions: Tibia/Fibula X-Ray 12/23/16 12:39 IMPRESSION: No acute finding involving the tibia or fibula. There is a comminuted distal femoral fracture and advanced degenerative changes in the knee. Chest X-Ray 12/26/16 00:00 IMPRESSION: NO ACUTE RADIOGRAPHIC FINDING IN THE CHEST. Femur X-Ray 12/27/16 00:00 IMPRESSION: IMAGE(S) OBTAINED DURING PROCEDURE. Fluoroscopy 12/27/16 00:00 IMPRESSION: Please see combined report for performance of procedure and radiologic supervision and interpretation. Abdomen/Pelvis CT 12/29/16 00:00 IMPRESSION: There is fairly marked gas distention of the colon to the level of the rectosigmoid as noted above. There is a distinct transition point in the rectosigmoid which could represent a stricture and the possibility of a small mass cannot be excluded. Calcified gallstone is identified. Other findings as noted above KUB X-Ray 12/29/16 20:17 IMPRESSION: 1. NASOGASTRIC TUBE DESCRIBED. RECOMMEND FURTHER ADVANCEMENT BY SEVERAL CM. 2. GAS-FILLED SMALL BOWEL AND COLON. Abdomen X-Ray 12/30/16 07:00 IMPRESSION: Again there is gaseous distention of multiple large and small bowel loops essentially unchanged as compared to the previous study. NG position is noted above. Other findings as noted above Assessment & Plan - Diagnosis (1) Colon distention Is this a current diagnosis for this admission?: YesPlan: 1. Clinically improved; patient is status post complete colonoscopy. There appears to be no mechanical obstruction. 2. Suggested starting clear liquids, narcotics when able, and promoting mobility. 3. Will sign off; call again if needed. - Time Time Spent with patient: Less than 15 minutes
[2017-01-02] MEDS: LORAZEPAM INJ 2 MG/1 ML VIAL IV PRN ×2 (12:40→18:48)
[2017-01-02 13:36] LABS: APPEARANCE,URINE CLEAR; BILIRUBIN,URINE NEGATIVE (NEGATIVE); GLUCOSE, URINE NEGATIVE (NEGATIVE); KETONES,URINE 20 mg/dL (NEGATIVE); LEUKOCYTE ESTERASE,URINE SMALL (NEGATIVE); NITRITE,URINE NEGATIVE (NEGATIVE); PROTEIN,URINE NEGATIVE (NEGATIVE); URINE SPECIFIC GRAVITY 1.014
[2017-01-02 14:00] LABS: HEMATOCRIT 30.5 % (36.0-47.0); HEMOGLOBIN 10.1 g/dL (12.0-15.5); HGB HCT DIFFERENCE -0.2; MEAN CORPUSCULAR HEMOGLOBIN 27.5 pg (27.0-33.4); MEAN CORPUSCULAR HGB CONC 33.1 g/dL (32.0-36.0); MEAN CORPUSCULAR VOLUME 83 fl (80-97); RED BLOOD COUNT 3.67 10^6/uL (3.72-5.28); RED CELL DISTRIBUTION WIDTH 15.2 % (11.5-14.0); WHITE BLOOD COUNT 19.9 10^3/uL (4.0-10.5)
[2017-01-02 14:22] LABS: ANION GAP 7 (5-19); BLOOD UREA NITROGEN 9 mg/dL (7-20); CALCIUM 8.2 mg/dL (8.4-10.2); CARBON DIOXIDE 28 mmol/L (22-30); CHLORIDE 99 mmol/L (98-107); CREATININE RESULT 0.47 mg/dL (0.52-1.25); GLUCOSE 102 mg/dL (75-110); SODIUM 133.6 mmol/L (137-145)
[2017-01-02 14:25] LABS: POTASSIUM 2.5 mmol/L (3.6-5.0)
[2017-01-02] MEDS: POTASSIUM CHLORIDE 20 MEQ/50 ML RTU IV SCH ×3 (15:21→21:27)
[2017-01-02] MEDS: KETOROLAC TROMETHAMINE INJ/PF 30 MG/1 ML SDV IV PRN (16:14)
[2017-01-02] MEDS ORDERED: LACTULOSE SYRUP 20 GM/30 ML UDCUP PO SCH (18:00)
--- NOTE | 2017-01-02 18:39 | PDOC PROGRESS REPORT ---
Subjective Progress Note for:: 01/02/17 Subjective:: Patient still distended, she has pseudoobstruction of the colon, she had colonoscopy by the weekend, she was also giving neostigmine despite all this intervention the abdomen remains distended, and she was agitated today requiring lorazepam Physical Exam Vital Signs: Temp Pulse Resp BP Pulse Ox 97.3 F 121 H 16 126/83 H 97 01/02/17 11:17 01/02/17 11:17 01/02/17 11:17 01/02/17 11:17 01/02/17 11:17 Intake & Output 01/01/17 01/02/17 01/03/17 06:59 06:59 06:59 Intake Total 2509 542 Output Total 1600 600 Balance 909 -58 Weight General appearance: PRESENT: mild distress Eye exam: PRESENT: PERRLA Respiratory exam: PRESENT: clear to auscultation zara Cardiovascular exam: PRESENT: +S1, +S2 GI/Abdominal exam: PRESENT: distended Neurological exam: PRESENT: alert Results Laboratory Results: 01/02/17 13:48 01/02/17 13:48 01/02/17 01/02/17 01/02/17 12:45 13:48 13:48 WBC 19.9 H RBC 3.67 L Hgb 10.1 L Hct 30.5 L MCV 83 MCH 27.5 MCHC 33.1 RDW 15.2 H Plt Count 166 Sodium 133.6 L Potassium 2.5 L* Chloride 99 Carbon Dioxide 28 Anion Gap 7 BUN 9 Creatinine 0.47 L Est GFR ( Amer) > 60 Est GFR (Non-Af Amer) > 60 Glucose 102 Calcium 8.2 L Urine Color YELLOW Urine Appearance CLEAR Urine pH 5.0 Ur Specific [place] 1.014 Urine Protein NEGATIVE Urine Glucose (UA) NEGATIVE Urine Ketones 20 H Urine Blood MODERATE H Urine Nitrite NEGATIVE Ur Leukocyte Esterase SMALL H Urine WBC (Auto) 3 Urine RBC (Auto) 54 Impressions: Tibia/Fibula X-Ray 12/23/16 12:39 IMPRESSION: No acute finding involving the tibia or fibula. There is a comminuted distal femoral fracture and advanced degenerative changes in the knee. Chest X-Ray 12/26/16 00:00 IMPRESSION: NO ACUTE RADIOGRAPHIC FINDING IN THE CHEST. Femur X-Ray 12/27/16 00:00 IMPRESSION: IMAGE(S) OBTAINED DURING PROCEDURE. Fluoroscopy 12/27/16 00:00 IMPRESSION: Please see combined report for performance of procedure and radiologic supervision and interpretation. Abdomen/Pelvis CT 12/29/16 00:00 IMPRESSION: There is fairly marked gas distention of the colon to the level of the rectosigmoid as noted above. There is a distinct transition point in the rectosigmoid which could represent a stricture and the possibility of a small mass cannot be excluded. Calcified gallstone is identified. Other findings as noted above KUB X-Ray 12/29/16 20:17 IMPRESSION: 1. NASOGASTRIC TUBE DESCRIBED. RECOMMEND FURTHER ADVANCEMENT BY SEVERAL CM. 2. GAS-FILLED SMALL BOWEL AND COLON. Abdomen X-Ray 12/30/16 07:00 IMPRESSION: Again there is gaseous distention of multiple large and small bowel loops essentially unchanged as compared to the previous study. NG position is noted above. Other findings as noted above Assessment & Plan - Diagnosis (1) Closed comminuted intra-articular fracture of distal end of right femur Qualifiers: Encounter type: initial encounter Qualified Code(s): S72.491A - Other fracture of lower end of right femur, initial encounter for closed fracture Is this a current diagnosis for this admission?: Yes (2) Chronic lymphocytic leukemia Is this a current diagnosis for this admission?: Yes (3) Colon distention Is this a current diagnosis for this admission?: Yes (4) Mariela's syndrome Is this a current diagnosis for this admission?: YesPlan: abdomen is distended
[2017-01-02] MEDS: LACTULOSE SYRUP 20 GM/30 ML UDCUP PO SCH (18:47)
[2017-01-02] MEDS: TRAZODONE HCL 50 MG TABLET NG SCH (21:30)
[2017-01-02] MEDS: RIVAROXABAN 10 MG TABLET NG SCH (21:30)
[2017-01-02] MEDS: HALOPERIDOL 5 MG TABLET NG SCH (21:30)
[2017-01-02] MEDS: ARIPIPRAZOLE 5 MG TABLET NG SCH (21:30)
[2017-01-03] MEDS: METRONIDAZOLE 500 MG/NS RTU 100 ML IV SCH ×4 (03:26→20:38)
[2017-01-03] MEDS: BENZTROPINE MESYLATE 1 MG TABLET NG SCH ×2 (10:32→18:14)
[2017-01-03] MEDS: LANSOPRAZOLE 15 MG TAB.RAP.DR NG SCH (10:32)
[2017-01-03] MEDS: RISPERIDONE 1 MG TAB.RAPDIS NG SCH ×2 (10:35→21:46)
[2017-01-03] MEDS: NA PHOS,M-B/NA PHOS,DI-BA (ADULT) 133 ML ENEMA PR SCH (10:35)
[2017-01-03] MEDS: CIPROFLOXACIN 400 MG/D5W RTU 200 ML IV SCH ×2 (12:26→21:46)
[2017-01-03] MEDS: LACTULOSE SYRUP 20 GM/30 ML UDCUP PO SCH (18:14)
--- NOTE | 2017-01-03 19:50 | PDOC PROGRESS REPORT ---
Subjective Progress Note for:: 01/03/17 Subjective:: Patient seen by the bedside she is still distended Physical Exam Vital Signs: Temp Pulse Resp BP Pulse Ox 98.8 F 109 H 24 H 127/75 H 98 01/03/17 15:42 01/03/17 15:42 01/03/17 15:42 01/03/17 15:42 01/03/17 15:42 Intake & Output 01/02/17 01/03/17 01/04/17 06:59 06:59 06:59 Intake Total 2509 3496 443 Output Total 1600 1450 Balance 909 2046 443 General appearance: PRESENT: mild distress Eye exam: PRESENT: PERRLA Respiratory exam: PRESENT: clear to auscultation zara Cardiovascular exam: PRESENT: +S1, +S2 GI/Abdominal exam: PRESENT: distended Neurological exam: PRESENT: alert, CN II-XII grossly intact Results Laboratory Results: 01/02/17 13:48 01/02/17 13:48 Impressions: Tibia/Fibula X-Ray 12/23/16 12:39 IMPRESSION: No acute finding involving the tibia or fibula. There is a comminuted distal femoral fracture and advanced degenerative changes in the knee. Chest X-Ray 12/26/16 00:00 IMPRESSION: NO ACUTE RADIOGRAPHIC FINDING IN THE CHEST. Femur X-Ray 12/27/16 00:00 IMPRESSION: IMAGE(S) OBTAINED DURING PROCEDURE. Fluoroscopy 12/27/16 00:00 IMPRESSION: Please see combined report for performance of procedure and radiologic supervision and interpretation. Abdomen/Pelvis CT 12/29/16 00:00 IMPRESSION: There is fairly marked gas distention of the colon to the level of the rectosigmoid as noted above. There is a distinct transition point in the rectosigmoid which could represent a stricture and the possibility of a small mass cannot be excluded. Calcified gallstone is identified. Other findings as noted above Abdomen X-Ray 12/30/16 07:00 IMPRESSION: Again there is gaseous distention of multiple large and small bowel loops essentially unchanged as compared to the previous study. NG position is noted above. Other findings as noted above KUB X-Ray 01/02/17 00:00 IMPRESSION: ILEUS, UNCHANGED. NASOGASTRIC TUBE NO LONGER PRESENT. Assessment & Plan - Diagnosis (1) Closed comminuted intra-articular fracture of distal end of right femur Qualifiers: Encounter type: initial encounter Qualified Code(s): S72.491A - Other fracture of lower end of right femur, initial encounter for closed fracture Is this a current diagnosis for this admission?: Yes (2) Chronic lymphocytic leukemia Is this a current diagnosis for this admission?: Yes (3) Colon distention Is this a current diagnosis for this admission?: Yes (4) Killdeer's syndrome Is this a current diagnosis for this admission?: Yes
--- NOTE | 2017-01-03 19:52 | PDOC PROGRESS REPORT ---
Subjective Progress Note for:: 01/03/17 Subjective:: Patient seen this evening. Continued distension of the abdominal. Pain controlled. Physical Exam Vital Signs: Temp Pulse Resp BP Pulse Ox 98.8 F 109 H 24 H 127/75 H 98 01/03/17 15:42 01/03/17 15:42 01/03/17 15:42 01/03/17 15:42 01/03/17 15:42 Intake & Output 01/02/17 01/03/17 01/04/17 06:59 06:59 06:59 Intake Total 2509 3496 443 Output Total 1600 1450 Balance 909 2046 443 Musculoskeletal exam: PRESENT: other - Right LE: Dressing clean/dry/intact no erythema or drainage. No calf tenderness. Intact plantar flexion/ dorsiflexion. No evidence of rotational abnormality. Results Laboratory Results: 01/02/17 13:48 01/02/17 13:48 Impressions: Tibia/Fibula X-Ray 12/23/16 12:39 IMPRESSION: No acute finding involving the tibia or fibula. There is a comminuted distal femoral fracture and advanced degenerative changes in the knee. Chest X-Ray 12/26/16 00:00 IMPRESSION: NO ACUTE RADIOGRAPHIC FINDING IN THE CHEST. Femur X-Ray 12/27/16 00:00 IMPRESSION: IMAGE(S) OBTAINED DURING PROCEDURE. Fluoroscopy 12/27/16 00:00 IMPRESSION: Please see combined report for performance of procedure and radiologic supervision and interpretation. Abdomen/Pelvis CT 12/29/16 00:00 IMPRESSION: There is fairly marked gas distention of the colon to the level of the rectosigmoid as noted above. There is a distinct transition point in the rectosigmoid which could represent a stricture and the possibility of a small mass cannot be excluded. Calcified gallstone is identified. Other findings as noted above Abdomen X-Ray 12/30/16 07:00 IMPRESSION: Again there is gaseous distention of multiple large and small bowel loops essentially unchanged as compared to the previous study. NG position is noted above. Other findings as noted above KUB X-Ray 01/02/17 00:00 IMPRESSION: ILEUS, UNCHANGED. NASOGASTRIC TUBE NO LONGER PRESENT. Assessment & Plan - Diagnosis (1) Closed fracture of left distal femur Qualifiers: Encounter type: subsequent encounter Fracture morphology: other fracture Is this a current diagnosis for this admission?: YesPlan: Status post retrograde nail right distal femur fracture #1 continue physical therapy with nonweightbearing #2 pain control limiting opioids given patient's ileus #3 Xarelto for DVT prophylaxis #4 discharge to nursing home facility when patient medically optimized
[2017-01-03] MEDS: HALOPERIDOL 5 MG TABLET NG SCH (21:40)
[2017-01-03] MEDS: ARIPIPRAZOLE 5 MG TABLET NG SCH (21:46)
[2017-01-03] MEDS: TRAZODONE HCL 50 MG TABLET NG SCH (21:46)
[2017-01-03] MEDS: RIVAROXABAN 10 MG TABLET NG SCH (21:46)
[2017-01-04] MEDS: METRONIDAZOLE 500 MG/NS RTU 100 ML IV SCH ×2 (02:21→09:30)
[2017-01-04] MEDS: RISPERIDONE 1 MG TAB.RAPDIS NG SCH ×2 (09:35→21:47)
[2017-01-04] MEDS: LANSOPRAZOLE 15 MG TAB.RAP.DR NG SCH (09:36)
[2017-01-04] MEDS: BENZTROPINE MESYLATE 1 MG TABLET NG SCH ×2 (09:36→18:31)
[2017-01-04] MEDS: CIPROFLOXACIN 400 MG/D5W RTU 200 ML IV SCH (10:42)
[2017-01-04] MEDS: NA PHOS,M-B/NA PHOS,DI-BA (ADULT) 133 ML ENEMA PR SCH (10:43)
[2017-01-04 16:31] LABS: ALANINE AMINOTRANSFERASE 33 U/L (9-52); ALBUMIN 2.6 g/dL (3.5-5.0); ALKALINE PHOSPHATASE 106 U/L (38-126); ANION GAP 8 (5-19); ASPARTATE AMINO TRANSFERASE 21 U/L (14-36); BILIRUBIN,TOTAL 1.7 mg/dL (0.2-1.3); BLOOD UREA NITROGEN 8 mg/dL (7-20); CALCIUM 8.4 mg/dL (8.4-10.2); CARBON DIOXIDE 26 mmol/L (22-30); CHLORIDE 97 mmol/L (98-107); CREATININE RESULT 0.47 mg/dL (0.52-1.25); GLUCOSE 95 mg/dL (75-110); SODIUM 130.5 mmol/L (137-145); TOTAL PROTEIN 4.4 g/dL (6.3-8.2)
[2017-01-04 16:33] LABS: POTASSIUM 2.7 mmol/L (3.6-5.0)
[2017-01-04 16:44] LABS: ABSOLUTE EOSINOPHILS # (AUTO) 0.1 10^3/uL (0.0-0.6); ABSOLUTE LYMPHOCYTES (AUTO) 7.5 10^3/uL (0.5-4.7); ABSOLUTE NEUT (AUTO) 10.2 10^3/uL (1.7-8.2); BASOPHILS % (AUTO) 0.2 % (0-2); EOSINOPHILS % (AUTO) 0.6 % (0-6); HEMATOCRIT 32.2 % (36.0-47.0); HEMOGLOBIN 10.5 g/dL (12.0-15.5); HGB HCT DIFFERENCE -0.7; LYMPHOCYTES % (AUTO) 39.9 % (13-45); MEAN CORPUSCULAR HEMOGLOBIN 27.4 pg (27.0-33.4); MEAN CORPUSCULAR HGB CONC 32.7 g/dL (32.0-36.0); MEAN CORPUSCULAR VOLUME 84 fl (80-97); MONOCYTES % (AUTO) 5.3 % (3-13); RED BLOOD COUNT 3.84 10^6/uL (3.72-5.28); WHITE BLOOD COUNT 18.9 10^3/uL (4.0-10.5)
--- NOTE | 2017-01-04 16:54 | PDOC PROGRESS REPORT ---
Subjective Progress Note for:: 01/04/17 Subjective:: She was seen by the bedside, the potassium is 2.5, she will need to have potassium replaced before she is discharged for rehabilitation Physical Exam Vital Signs: Temp Pulse Resp BP Pulse Ox 97.6 F 112 H 24 H 130/79 H 97 01/04/17 10:45 01/04/17 10:45 01/04/17 10:45 01/04/17 10:45 01/04/17 10:45 Intake & Output 01/03/17 01/04/17 01/05/17 06:59 06:59 06:59 Intake Total 3496 963 Output Total 1450 750 Balance 2046 213 General appearance: PRESENT: no acute distress Eye exam: PRESENT: PERRLA Respiratory exam: PRESENT: clear to auscultation zara Cardiovascular exam: PRESENT: +S1, +S2 GI/Abdominal exam: PRESENT: distended Neurological exam: PRESENT: alert Results Laboratory Results: 01/04/17 15:40 01/04/17 15:40 01/04/17 01/04/17 15:40 15:40 WBC 18.9 H RBC 3.84 Hgb 10.5 L Hct 32.2 L MCV 84 MCH 27.4 MCHC 32.7 RDW 16.0 H Plt Count 169 Seg Neutrophils % 54.0 Lymphocytes % 39.9 Monocytes % 5.3 Eosinophils % 0.6 Basophils % 0.2 Absolute Neutrophils 10.2 H Absolute Lymphocytes 7.5 H Absolute Monocytes 1.0 Absolute Eosinophils 0.1 Absolute Basophils 0.0 Sodium 130.5 L Potassium 2.7 L* Chloride 97 L Carbon Dioxide 26 Anion Gap 8 BUN 8 Creatinine 0.47 L Est GFR ( Amer) > 60 Est GFR (Non-Af Amer) > 60 Glucose 95 Calcium 8.4 Total Bilirubin 1.7 H AST 21 ALT 33 Alkaline Phosphatase 106 Total Protein 4.4 L Albumin 2.6 L 01/02/17 12:45 Catheterized Urine Urine Culture - Final NO GROWTH 2 DAYS Impressions: Tibia/Fibula X-Ray 12/23/16 12:39 IMPRESSION: No acute finding involving the tibia or fibula. There is a comminuted distal femoral fracture and advanced degenerative changes in the knee. Chest X-Ray 12/26/16 00:00 IMPRESSION: NO ACUTE RADIOGRAPHIC FINDING IN THE CHEST. Femur X-Ray 12/27/16 00:00 IMPRESSION: IMAGE(S) OBTAINED DURING PROCEDURE. Fluoroscopy 12/27/16 00:00 IMPRESSION: Please see combined report for performance of procedure and radiologic supervision and interpretation. Abdomen/Pelvis CT 12/29/16 00:00 IMPRESSION: There is fairly marked gas distention of the colon to the level of the rectosigmoid as noted above. There is a distinct transition point in the rectosigmoid which could represent a stricture and the possibility of a small mass cannot be excluded. Calcified gallstone is identified. Other findings as noted above Abdomen X-Ray 12/30/16 07:00 IMPRESSION: Again there is gaseous distention of multiple large and small bowel loops essentially unchanged as compared to the previous study. NG position is noted above. Other findings as noted above KUB X-Ray 01/02/17 00:00 IMPRESSION: ILEUS, UNCHANGED. NASOGASTRIC TUBE NO LONGER PRESENT. Assessment & Plan - Diagnosis (1) Closed comminuted intra-articular fracture of distal end of right femur Qualifiers: Encounter type: initial encounter Qualified Code(s): S72.491A - Other fracture of lower end of right femur, initial encounter for closed fracture Is this a current diagnosis for this admission?: Yes (2) Chronic lymphocytic leukemia Is this a current diagnosis for this admission?: Yes (3) Colon distention Is this a current diagnosis for this admission?: Yes (4) Accident's syndrome Is this a current diagnosis for this admission?: Yes (5) Hypokalemia Is this a current diagnosis for this admission?: YesPlan: She will be given K riders
[2017-01-04] MEDS: POTASSI CL 20 MEQ/50 ML RIDER 20 MEQ/50 ML RTUPB IV SCH ×3 (18:29→22:41)
[2017-01-04] MEDS: LACTULOSE SYRUP 20 GM/30 ML UDCUP PO SCH (18:31)
[2017-01-04] MEDS: HALOPERIDOL 5 MG TABLET NG SCH (21:22)
[2017-01-04] MEDS: RIVAROXABAN 10 MG TABLET NG SCH (21:29)
[2017-01-04] MEDS: TRAZODONE HCL 50 MG TABLET NG SCH (21:29)
[2017-01-04] MEDS: ARIPIPRAZOLE 5 MG TABLET NG SCH (21:29)
[2017-01-04] MEDS: ACETAMINOPHEN 325 MG TABLET NG PRN (23:22)
[2017-01-05 05:06] LABS: ABSOLUTE BASOPHILS # (AUTO) 0.1 10^3/uL (0.0-0.2); ABSOLUTE EOSINOPHILS # (AUTO) 0.2 10^3/uL (0.0-0.6); ABSOLUTE LYMPHOCYTES (AUTO) 7.3 10^3/uL (0.5-4.7); ABSOLUTE MONOCYTES (AUTO) 1.1 10^3/uL (0.1-1.4); ABSOLUTE NEUT (AUTO) 10.2 10^3/uL (1.7-8.2); BASOPHILS % (AUTO) 0.6 % (0-2); EOSINOPHILS % (AUTO) 1.1 % (0-6); HEMATOCRIT 33.6 % (36.0-47.0); HGB HCT DIFFERENCE -0.6; LYMPHOCYTES % (AUTO) 38.5 % (13-45); MEAN CORPUSCULAR HEMOGLOBIN 27.6 pg (27.0-33.4); MEAN CORPUSCULAR HGB CONC 32.8 g/dL (32.0-36.0); MEAN CORPUSCULAR VOLUME 84 fl (80-97); RED BLOOD COUNT 3.99 10^6/uL (3.72-5.28); SEGMENTED NEUTROPHILS % (AUTO) 53.8 % (42-78); WHITE BLOOD COUNT 18.9 10^3/uL (4.0-10.5)
[2017-01-05 05:33] LABS: ALANINE AMINOTRANSFERASE 28 U/L (9-52); ALBUMIN 2.7 g/dL (3.5-5.0); ALKALINE PHOSPHATASE 109 U/L (38-126); ANION GAP 8 (5-19); ASPARTATE AMINO TRANSFERASE 25 U/L (14-36); BILIRUBIN,TOTAL 1.8 mg/dL (0.2-1.3); BLOOD UREA NITROGEN 8 mg/dL (7-20); CALCIUM 8.7 mg/dL (8.4-10.2); CARBON DIOXIDE 29 mmol/L (22-30); CHLORIDE 100 mmol/L (98-107); CREATININE RESULT 0.52 mg/dL (0.52-1.25); GLUCOSE 89 mg/dL (75-110); POTASSIUM 3.1 mmol/L (3.6-5.0); SODIUM 136.8 mmol/L (137-145); TOTAL PROTEIN 5.1 g/dL (6.3-8.2)
[2017-01-05] MEDS: LANSOPRAZOLE 15 MG TAB.RAP.DR NG SCH (07:56)
[2017-01-05] MEDS: RISPERIDONE 1 MG TAB.RAPDIS NG SCH (10:17)
[2017-01-05] MEDS: BENZTROPINE MESYLATE 1 MG TABLET NG SCH (10:18)
[2017-01-05] MEDS ORDERED: POTASSI CL 20 MEQ/50 ML RIDER 50 ML IV ONE (13:07)
[2017-01-05] MEDS ORDERED: ACETAMINOPHEN 325 MG TABLET PO PRN (13:21)
[2017-01-05] MEDS ORDERED: ONDANSETRON 4 MG TAB.RAPDIS PO PRN (13:22)
[2017-01-05] MEDS: IPRATROPIUM/ALBUTEROL 0.5-2.5 MG/3 ML AMPUL NEB PRN ×2 (17:06→20:17)
[2017-01-05] MEDS: LACTULOSE SYRUP 20 GM/30 ML UDCUP PO SCH (17:40)
[2017-01-05] MEDS: BENZTROPINE MESYLATE 1 MG TABLET PO SCH (17:42)
[2017-01-05] MEDS: RISPERIDONE 1 MG TAB.RAPDIS PO SCH (17:42)
--- NOTE | 2017-01-05 19:03 | PDOC PROGRESS REPORT ---
Subjective Progress Note for:: 01/05/17 Subjective:: Patient was seen by the bedside, the abdomen seems to be more distended today than yesterday, she also have hypokalemia and this is been replaced Physical Exam Vital Signs: Temp Pulse Resp BP Pulse Ox 98.0 F 90 18 149/75 H 94 01/05/17 15:12 01/05/17 17:06 01/05/17 17:06 01/05/17 15:12 01/05/17 17:06 Intake & Output 01/04/17 01/05/17 01/06/17 06:59 06:59 06:59 Intake Total 963 1520 1660 Output Total 750 2300 300 Balance 213 -780 1360 General appearance: PRESENT: no acute distress Eye exam: PRESENT: PERRLA Respiratory exam: PRESENT: clear to auscultation zara Cardiovascular exam: PRESENT: +S1, +S2 GI/Abdominal exam: PRESENT: distended Neurological exam: PRESENT: alert, CN II-XII grossly intact Results Laboratory Results: 01/05/17 03:44 01/05/17 03:44 01/05/17 01/05/17 03:44 03:44 WBC 18.9 H RBC 3.99 Hgb 11.0 L Hct 33.6 L MCV 84 MCH 27.6 MCHC 32.8 RDW 16.0 H Plt Count 182 Seg Neutrophils % 53.8 Lymphocytes % 38.5 Monocytes % 6.0 Eosinophils % 1.1 Basophils % 0.6 Absolute Neutrophils 10.2 H Absolute Lymphocytes 7.3 H Absolute Monocytes 1.1 Absolute Eosinophils 0.2 Absolute Basophils 0.1 Sodium 136.8 L Potassium 3.1 L Chloride 100 Carbon Dioxide 29 Anion Gap 8 BUN 8 Creatinine 0.52 Est GFR ( Amer) > 60 Est GFR (Non-Af Amer) > 60 Glucose 89 Calcium 8.7 Total Bilirubin 1.8 H AST 25 ALT 28 Alkaline Phosphatase 109 Total Protein 5.1 L Albumin 2.7 L 12/31/16 13:55 Blood Blood Culture - Final NO GROWTH IN 5 DAYS 12/31/16 13:38 Blood Blood Culture - Final NO GROWTH IN 5 DAYS Impressions: Tibia/Fibula X-Ray 12/23/16 12:39 IMPRESSION: No acute finding involving the tibia or fibula. There is a comminuted distal femoral fracture and advanced degenerative changes in the knee. Chest X-Ray 12/26/16 00:00 IMPRESSION: NO ACUTE RADIOGRAPHIC FINDING IN THE CHEST. Femur X-Ray 12/27/16 00:00 IMPRESSION: IMAGE(S) OBTAINED DURING PROCEDURE. Fluoroscopy 12/27/16 00:00 IMPRESSION: Please see combined report for performance of procedure and radiologic supervision and interpretation. Abdomen/Pelvis CT 12/29/16 00:00 IMPRESSION: There is fairly marked gas distention of the colon to the level of the rectosigmoid as noted above. There is a distinct transition point in the rectosigmoid which could represent a stricture and the possibility of a small mass cannot be excluded. Calcified gallstone is identified. Other findings as noted above Abdomen X-Ray 12/30/16 07:00 IMPRESSION: Again there is gaseous distention of multiple large and small bowel loops essentially unchanged as compared to the previous study. NG position is noted above. Other findings as noted above Assessment & Plan - Diagnosis (1) Closed comminuted intra-articular fracture of distal end of right femur Qualifiers: Encounter type: initial encounter Qualified Code(s): S72.491A - Other fracture of lower end of right femur, initial encounter for closed fracture Is this a current diagnosis for this admission?: Yes (2) Chronic lymphocytic leukemia Is this a current diagnosis for this admission?: Yes (3) Colon distention Is this a current diagnosis for this admission?: Yes (4) Angie's syndrome Is this a current diagnosis for this admission?: Yes (5) Hypokalemia Is this a current diagnosis for this admission?: YesPlan: Replace potassium
[2017-01-05 20:00] LABS: ALANINE AMINOTRANSFERASE 30 U/L (9-52); ALKALINE PHOSPHATASE 120 U/L (38-126); ANION GAP 9 (5-19); ASPARTATE AMINO TRANSFERASE 23 U/L (14-36); BILIRUBIN,TOTAL 1.7 mg/dL (0.2-1.3); BLOOD UREA NITROGEN 9 mg/dL (7-20); CALCIUM 8.9 mg/dL (8.4-10.2); CARBON DIOXIDE 27 mmol/L (22-30); CHLORIDE 100 mmol/L (98-107); CREATININE RESULT 0.53 mg/dL (0.52-1.25); GLUCOSE 110 mg/dL (75-110); POTASSIUM 3.2 mmol/L (3.6-5.0); SODIUM 135.8 mmol/L (137-145); TOTAL PROTEIN 5.5 g/dL (6.3-8.2)
[2017-01-05] MEDS: ARIPIPRAZOLE 5 MG TABLET PO SCH (21:54)
[2017-01-05] MEDS: TRAZODONE HCL 50 MG TABLET PO SCH (21:54)
[2017-01-05] MEDS: HALOPERIDOL 5 MG TABLET PO SCH (21:54)
[2017-01-05] MEDS: RIVAROXABAN 10 MG TABLET PO SCH (21:54)
[2017-01-06] MEDS: LANSOPRAZOLE 15 MG TAB.RAP.DR PO SCH (05:39)
[2017-01-06] MEDS: RISPERIDONE 1 MG TAB.RAPDIS PO SCH ×2 (11:45→17:22)
[2017-01-06] MEDS: BENZTROPINE MESYLATE 1 MG TABLET PO SCH ×2 (11:45→17:24)
[2017-01-06 12:50] LABS: HEMATOCRIT 33.1 % (36.0-47.0); HEMOGLOBIN 10.7 g/dL (12.0-15.5); MEAN CORPUSCULAR HEMOGLOBIN 27.4 pg (27.0-33.4); MEAN CORPUSCULAR HGB CONC 32.2 g/dL (32.0-36.0); MEAN CORPUSCULAR VOLUME 85 fl (80-97); RED BLOOD COUNT 3.89 10^6/uL (3.72-5.28); RED CELL DISTRIBUTION WIDTH 16.2 % (11.5-14.0)
[2017-01-06 13:09] LABS: BASOPHILS % (MANUAL) 0 % (0-2); EOSINOPHILS % (MANUAL) 0 % (0-6); LYMPHOCYTES % (MANUAL) 7 % (13-45); NUCLEATED RED BLOOD CELLS 1 /100 WBC (0); TOTAL CELLS COUNTED 100
[2017-01-06 13:11] LABS: ANISOCYTOSIS 1+; POIKILOCYTOSIS SLIGHT; POLYCHROMASIA SLIGHT; STOMATOCYTES SLIGHT
[2017-01-06 13:12] LABS: SMUDGE CELLS PRESENT
[2017-01-06 13:16] LABS: ALANINE AMINOTRANSFERASE 29 U/L (9-52); ALBUMIN 2.7 g/dL (3.5-5.0); ALKALINE PHOSPHATASE 113 U/L (38-126); ANION GAP 7 (5-19); ASPARTATE AMINO TRANSFERASE 19 U/L (14-36); BILIRUBIN,TOTAL 1.7 mg/dL (0.2-1.3); BLOOD UREA NITROGEN 9 mg/dL (7-20); CALCIUM 8.8 mg/dL (8.4-10.2); CARBON DIOXIDE 29 mmol/L (22-30); CHLORIDE 100 mmol/L (98-107); CREATININE RESULT 0.44 mg/dL (0.52-1.25); GLUCOSE 110 mg/dL (75-110); POTASSIUM 3.2 mmol/L (3.6-5.0); SODIUM 135.6 mmol/L (137-145); TOTAL PROTEIN 5.2 g/dL (6.3-8.2)
[2017-01-06] MEDS: LACTULOSE SYRUP 20 GM/30 ML UDCUP PO SCH (17:29)
--- NOTE | 2017-01-06 19:23 | PDOC PROGRESS REPORT ---
Subjective Progress Note for:: 01/06/17 Subjective:: Patient seen and evaluated this afternoon. Pain has been controlled. Continues to have issues with postoperative ileus. Family at bedside. Physical Exam Vital Signs: Temp Pulse Resp BP Pulse Ox 98.4 F 110 H 18 122/72 96 01/06/17 16:00 01/06/17 16:44 01/06/17 16:44 01/06/17 16:00 01/06/17 16:00 Intake & Output 01/05/17 01/06/17 01/07/17 06:59 06:59 06:59 Intake Total 1520 1960 376 Output Total 2300 800 Balance -780 1160 376 Weight 113 kg Musculoskeletal exam: PRESENT: other - Right lower extremity: Dressing clean/dry /intact no erythema or drainage. No significant thigh or calf swelling. No calf tenderness. Patient does have some varus/valgus instability of the knee. No pain with knee range of motion from 0-90. No crepitus with range of motion. Results Laboratory Results: 01/06/17 12:32 01/06/17 12:32 01/05/17 01/06/17 01/06/17 19:30 12:32 12:32 WBC 26.0 H RBC 3.89 Hgb 10.7 L Hct 33.1 L MCV 85 MCH 27.4 MCHC 32.2 RDW 16.2 H Plt Count 192 Seg Neutrophils % Not Reportable Lymphocytes % Not Reportable Monocytes % Not Reportable Eosinophils % Not Reportable Basophils % Not Reportable Absolute Neutrophils Not Reportable Absolute Lymphocytes Not Reportable Absolute Monocytes Not Reportable Absolute Eosinophils Not Reportable Absolute Basophils Not Reportable Sodium 135.8 L 135.6 L Potassium 3.2 L 3.2 L Chloride 100 100 Carbon Dioxide 27 29 Anion Gap 9 7 BUN 9 9 Creatinine 0.53 0.44 L Est GFR ( Amer) > 60 > 60 Est GFR (Non-Af Amer) > 60 > 60 Glucose 110 110 Calcium 8.9 8.8 Total Bilirubin 1.7 H 1.7 H AST 23 19 ALT 30 29 Alkaline Phosphatase 120 113 Total Protein 5.5 L 5.2 L Albumin 3.0 L 2.7 L Impressions: Tibia/Fibula X-Ray 12/23/16 12:39 IMPRESSION: No acute finding involving the tibia or fibula. There is a comminuted distal femoral fracture and advanced degenerative changes in the knee. Femur X-Ray 12/27/16 00:00 IMPRESSION: IMAGE(S) OBTAINED DURING PROCEDURE. Fluoroscopy 12/27/16 00:00 IMPRESSION: Please see combined report for performance of procedure and radiologic supervision and interpretation. Abdomen/Pelvis CT 12/29/16 00:00 IMPRESSION: There is fairly marked gas distention of the colon to the level of the rectosigmoid as noted above. There is a distinct transition point in the rectosigmoid which could represent a stricture and the possibility of a small mass cannot be excluded. Calcified gallstone is identified. Other findings as noted above Abdomen X-Ray 12/30/16 07:00 IMPRESSION: Again there is gaseous distention of multiple large and small bowel loops essentially unchanged as compared to the previous study. NG position is noted above. Other findings as noted above Chest X-Ray 01/05/17 00:00 IMPRESSION: HEART ENLARGED WITHOUT FAILURE. NO OTHER SIGNIFICANT RADIOGRAPHIC FINDING IN THE CHEST. KUB X-Ray 01/05/17 00:00 IMPRESSION: ILEUS. NO CHANGE IN APPEARANCE OF THE ABDOMEN. Assessment & Plan - Diagnosis (1) Closed fracture of left distal femur Qualifiers: Encounter type: subsequent encounter Fracture morphology: other fracture Is this a current diagnosis for this admission?: YesPlan: Status post right distal femur ORIF with retrograde nail #1 physical therapy with nonweightbearing #2 Xarelto for DVT prophylaxis #3 postoperative ileus #4 will recheck radiographs of the right knee given it has been 2 weeks from the operative procedure.
--- NOTE | 2017-01-06 19:25 | PDOC PROGRESS REPORT ---
Subjective Progress Note for:: 01/06/17 Subjective:: She was seen by the bedside, she is still distended on the serum potassium was low as well this to be replaced, she needs to get out of bed, will get PT involved Physical Exam Vital Signs: Temp Pulse Resp BP Pulse Ox 98.4 F 110 H 18 122/72 96 01/06/17 16:00 01/06/17 16:44 01/06/17 16:44 01/06/17 16:00 01/06/17 16:00 Intake & Output 01/05/17 01/06/17 01/07/17 06:59 06:59 06:59 Intake Total 1520 1960 376 Output Total 2300 800 Balance -780 1160 376 Weight 113 kg General appearance: PRESENT: no acute distress Eye exam: PRESENT: PERRLA Respiratory exam: PRESENT: clear to auscultation zara Cardiovascular exam: PRESENT: +S1, +S2 GI/Abdominal exam: PRESENT: distended Neurological exam: PRESENT: alert, CN II-XII grossly intact Results Laboratory Results: 01/06/17 12:32 01/06/17 12:32 01/05/17 01/06/17 01/06/17 19:30 12:32 12:32 WBC 26.0 H RBC 3.89 Hgb 10.7 L Hct 33.1 L MCV 85 MCH 27.4 MCHC 32.2 RDW 16.2 H Plt Count 192 Seg Neutrophils % Not Reportable Lymphocytes % Not Reportable Monocytes % Not Reportable Eosinophils % Not Reportable Basophils % Not Reportable Absolute Neutrophils Not Reportable Absolute Lymphocytes Not Reportable Absolute Monocytes Not Reportable Absolute Eosinophils Not Reportable Absolute Basophils Not Reportable Sodium 135.8 L 135.6 L Potassium 3.2 L 3.2 L Chloride 100 100 Carbon Dioxide 27 29 Anion Gap 9 7 BUN 9 9 Creatinine 0.53 0.44 L Est GFR ( Amer) > 60 > 60 Est GFR (Non-Af Amer) > 60 > 60 Glucose 110 110 Calcium 8.9 8.8 Total Bilirubin 1.7 H 1.7 H AST 23 19 ALT 30 29 Alkaline Phosphatase 120 113 Total Protein 5.5 L 5.2 L Albumin 3.0 L 2.7 L Impressions: Tibia/Fibula X-Ray 12/23/16 12:39 IMPRESSION: No acute finding involving the tibia or fibula. There is a comminuted distal femoral fracture and advanced degenerative changes in the knee. Femur X-Ray 12/27/16 00:00 IMPRESSION: IMAGE(S) OBTAINED DURING PROCEDURE. Fluoroscopy 12/27/16 00:00 IMPRESSION: Please see combined report for performance of procedure and radiologic supervision and interpretation. Abdomen/Pelvis CT 12/29/16 00:00 IMPRESSION: There is fairly marked gas distention of the colon to the level of the rectosigmoid as noted above. There is a distinct transition point in the rectosigmoid which could represent a stricture and the possibility of a small mass cannot be excluded. Calcified gallstone is identified. Other findings as noted above Abdomen X-Ray 12/30/16 07:00 IMPRESSION: Again there is gaseous distention of multiple large and small bowel loops essentially unchanged as compared to the previous study. NG position is noted above. Other findings as noted above Chest X-Ray 01/05/17 00:00 IMPRESSION: HEART ENLARGED WITHOUT FAILURE. NO OTHER SIGNIFICANT RADIOGRAPHIC FINDING IN THE CHEST. KUB X-Ray 01/05/17 00:00 IMPRESSION: ILEUS. NO CHANGE IN APPEARANCE OF THE ABDOMEN. Assessment & Plan - Diagnosis (1) Closed comminuted intra-articular fracture of distal end of right femur Qualifiers: Qualified Code(s): S72.491A - Other fracture of lower end of right femur , initial encounter for closed fracture Is this a current diagnosis for this admission?: Yes (2) Chronic lymphocytic leukemia Is this a current diagnosis for this admission?: Yes (3) Colon distention Is this a current diagnosis for this admission?: Yes (4) Mariela's syndrome Is this a current diagnosis for this admission?: Yes (5) Hypokalemia Is this a current diagnosis for this admission?: YesPlan: Replace potassium
[2017-01-06] MEDS: POTASSI CL 20 MEQ/50 ML RIDER 50 ML IV SCH ×2 (19:43→22:12)
[2017-01-06] MEDS: RIVAROXABAN 10 MG TABLET PO SCH (22:11)
[2017-01-06] MEDS: HALOPERIDOL 5 MG TABLET PO SCH (22:11)
[2017-01-06] MEDS: TRAZODONE HCL 50 MG TABLET PO SCH (22:11)
[2017-01-06] MEDS: ARIPIPRAZOLE 5 MG TABLET PO SCH (22:12)
[2017-01-07] MEDS: POTASSI CL 20 MEQ/50 ML RIDER 50 ML IV SCH (02:25)
[2017-01-07] MEDS: LANSOPRAZOLE 15 MG TAB.RAP.DR PO SCH (05:27)
[2017-01-07 05:35] LABS: ABSOLUTE BASOPHILS # (AUTO) 0.1 10^3/uL (0.0-0.2); ABSOLUTE EOSINOPHILS # (AUTO) 0.1 10^3/uL (0.0-0.6); ABSOLUTE MONOCYTES (AUTO) 0.9 10^3/uL (0.1-1.4); ABSOLUTE NEUT (AUTO) 10.9 10^3/uL (1.7-8.2); BASOPHILS % (AUTO) 0.3 % (0-2); EOSINOPHILS % (AUTO) 0.7 % (0-6); HEMATOCRIT 33.8 % (36.0-47.0); HEMOGLOBIN 11.1 g/dL (12.0-15.5); HGB HCT DIFFERENCE -0.5; LYMPHOCYTES % (AUTO) 36.8 % (13-45); MEAN CORPUSCULAR HEMOGLOBIN 27.9 pg (27.0-33.4); MEAN CORPUSCULAR HGB CONC 32.8 g/dL (32.0-36.0); MEAN CORPUSCULAR VOLUME 85 fl (80-97); MONOCYTES % (AUTO) 4.7 % (3-13); RED BLOOD COUNT 3.97 10^6/uL (3.72-5.28); RED CELL DISTRIBUTION WIDTH 16.8 % (11.5-14.0); SEGMENTED NEUTROPHILS % (AUTO) 57.5 % (42-78)
[2017-01-07 05:58] LABS: ALANINE AMINOTRANSFERASE 29 U/L (9-52); ALBUMIN 2.8 g/dL (3.5-5.0); ALKALINE PHOSPHATASE 126 U/L (38-126); ANION GAP 12 (5-19); ASPARTATE AMINO TRANSFERASE 17 U/L (14-36); BILIRUBIN,TOTAL 1.8 mg/dL (0.2-1.3); BLOOD UREA NITROGEN 8 mg/dL (7-20); CALCIUM 8.6 mg/dL (8.4-10.2); CARBON DIOXIDE 26 mmol/L (22-30); CHLORIDE 101 mmol/L (98-107); CREATININE RESULT 0.51 mg/dL (0.52-1.25); GLUCOSE 100 mg/dL (75-110); POTASSIUM 3.1 mmol/L (3.6-5.0); SODIUM 138.7 mmol/L (137-145); TOTAL PROTEIN 5.2 g/dL (6.3-8.2)
--- NOTE | 2017-01-07 07:52 | PDOC PROGRESS REPORT ---
Subjective Progress Note for:: 01/07/17 Subjective:: "Fine" Physical Exam Vital Signs: Temp Pulse Resp BP Pulse Ox 36.5 C 118 H 19 138/83 H 96 01/06/17 23:22 01/07/17 07:00 01/06/17 23:22 01/06/17 23:22 01/06/17 23:22 Intake & Output 01/06/17 01/07/17 01/08/17 06:59 06:59 06:59 Intake Total 1960 1406 Output Total 800 400 Balance 1160 1006 Weight 113 kg General appearance: PRESENT: no acute distress Head exam: PRESENT: normocephalic Respiratory exam: PRESENT: unlabored Pulses: PRESENT: +1 pedal pulses bilateral Vascular exam: PRESENT: normal capillary refill GI/Abdominal exam: PRESENT: soft Rectal exam: PRESENT: deferred Extremities exam: PRESENT: other - Right lower extremity intact Skin exam: PRESENT: dry, intact, warm. ABSENT: cyanosis, rash Results Laboratory Results: 01/07/17 05:02 01/07/17 05:02 01/06/17 01/06/17 01/07/17 12:32 12:32 05:02 WBC 26.0 H 19.0 H RBC 3.89 3.97 Hgb 10.7 L 11.1 L Hct 33.1 L 33.8 L MCV 85 85 MCH 27.4 27.9 MCHC 32.2 32.8 RDW 16.2 H 16.8 H Plt Count 192 192 Seg Neutrophils % Not Reportable 57.5 Lymphocytes % Not Reportable 36.8 Monocytes % Not Reportable 4.7 Eosinophils % Not Reportable 0.7 Basophils % Not Reportable 0.3 Absolute Neutrophils Not Reportable 10.9 H Absolute Lymphocytes Not Reportable 7.0 H Absolute Monocytes Not Reportable 0.9 Absolute Eosinophils Not Reportable 0.1 Absolute Basophils Not Reportable 0.1 Sodium 135.6 L Potassium 3.2 L Chloride 100 Carbon Dioxide 29 Anion Gap 7 BUN 9 Creatinine 0.44 L Est GFR ( Amer) > 60 Est GFR (Non-Af Amer) > 60 Glucose 110 Calcium 8.8 Total Bilirubin 1.7 H AST 19 ALT 29 Alkaline Phosphatase 113 Total Protein 5.2 L Albumin 2.7 L 01/07/17 05:02 WBC RBC Hgb Hct MCV MCH MCHC RDW Plt Count Seg Neutrophils % Lymphocytes % Monocytes % Eosinophils % Basophils % Absolute Neutrophils Absolute Lymphocytes Absolute Monocytes Absolute Eosinophils Absolute Basophils Sodium 138.7 Potassium 3.1 L Chloride 101 Carbon Dioxide 26 Anion Gap 12 BUN 8 Creatinine 0.51 L Est GFR ( Amer) > 60 Est GFR (Non-Af Amer) > 60 Glucose 100 Calcium 8.6 Total Bilirubin 1.8 H AST 17 ALT 29 Alkaline Phosphatase 126 Total Protein 5.2 L Albumin 2.8 L Impressions: Tibia/Fibula X-Ray 12/23/16 12:39 IMPRESSION: No acute finding involving the tibia or fibula. There is a comminuted distal femoral fracture and advanced degenerative changes in the knee. Femur X-Ray 12/27/16 00:00 IMPRESSION: IMAGE(S) OBTAINED DURING PROCEDURE. Fluoroscopy 12/27/16 00:00 IMPRESSION: Please see combined report for performance of procedure and radiologic supervision and interpretation. Abdomen/Pelvis CT 12/29/16 00:00 IMPRESSION: There is fairly marked gas distention of the colon to the level of the rectosigmoid as noted above. There is a distinct transition point in the rectosigmoid which could represent a stricture and the possibility of a small mass cannot be excluded. Calcified gallstone is identified. Other findings as noted above Abdomen X-Ray 12/30/16 07:00 IMPRESSION: Again there is gaseous distention of multiple large and small bowel loops essentially unchanged as compared to the previous study. NG position is noted above. Other findings as noted above Chest X-Ray 01/05/17 00:00 IMPRESSION: HEART ENLARGED WITHOUT FAILURE. NO OTHER SIGNIFICANT RADIOGRAPHIC FINDING IN THE CHEST. KUB X-Ray 01/05/17 00:00 IMPRESSION: ILEUS. NO CHANGE IN APPEARANCE OF THE ABDOMEN. Assessment & Plan - Diagnosis (1) Closed comminuted intra-articular fracture of distal end of right femur Qualifiers: Encounter type: initial encounter Qualified Code(s): S72.491A - Other fracture of lower end of right femur, initial encounter for closed fracture Is this a current diagnosis for this admission?: YesPlan: Patient making limited progress with physical therapy. White blood cell count has decreased to 19,000. Bed available at intermediate facility. - Time Time Spent with patient: 15-24 minutes Anticipated discharge: SNF Within: within 48 hours
[2017-01-07] MEDS: RISPERIDONE 1 MG TAB.RAPDIS PO SCH ×2 (10:29→18:27)
[2017-01-07] MEDS: LORAZEPAM INJ 2 MG/1 ML VIAL IV PRN (10:30)
[2017-01-07] MEDS: BENZTROPINE MESYLATE 1 MG TABLET PO SCH ×2 (10:30→18:28)
--- NOTE | 2017-01-07 17:41 | PDOC PROGRESS REPORT ---
Subjective Progress Note for:: 01/07/17 Subjective:: She has persistent hypokalemia most likely from the diarrhea, she has pseudoobstruction of the colon, she needs physical therapy hopefully she will be discharged to senior living next week for rehabilitation. Physical Exam Vital Signs: Temp Pulse Resp BP Pulse Ox 97.9 F 106 H 18 113/52 L 94 01/07/17 11:55 01/07/17 16:42 01/07/17 16:42 01/07/17 11:55 01/07/17 16:42 Intake & Output 01/06/17 01/07/17 01/08/17 06:59 06:59 06:59 Intake Total 1960 1406 540 Output Total 800 400 500 Balance 1160 1006 40 Weight 113 kg General appearance: PRESENT: no acute distress Head exam: PRESENT: atraumatic, normocephalic Eye exam: PRESENT: PERRLA Mouth exam: PRESENT: moist Neck exam: PRESENT: full ROM Respiratory exam: PRESENT: clear to auscultation zara Cardiovascular exam: PRESENT: RRR, +S1, +S2 Vascular exam: PRESENT: normal capillary refill GI/Abdominal exam: PRESENT: distended Rectal exam: PRESENT: deferred Neurological exam: PRESENT: alert, CN II-XII grossly intact Skin exam: PRESENT: dry, intact, warm Results Laboratory Results: 01/07/17 05:02 01/07/17 05:02 01/07/17 01/07/17 05:02 05:02 WBC 19.0 H RBC 3.97 Hgb 11.1 L Hct 33.8 L MCV 85 MCH 27.9 MCHC 32.8 RDW 16.8 H Plt Count 192 Seg Neutrophils % 57.5 Lymphocytes % 36.8 Monocytes % 4.7 Eosinophils % 0.7 Basophils % 0.3 Absolute Neutrophils 10.9 H Absolute Lymphocytes 7.0 H Absolute Monocytes 0.9 Absolute Eosinophils 0.1 Absolute Basophils 0.1 Sodium 138.7 Potassium 3.1 L Chloride 101 Carbon Dioxide 26 Anion Gap 12 BUN 8 Creatinine 0.51 L Est GFR ( Amer) > 60 Est GFR (Non-Af Amer) > 60 Glucose 100 Calcium 8.6 Total Bilirubin 1.8 H AST 17 ALT 29 Alkaline Phosphatase 126 Total Protein 5.2 L Albumin 2.8 L Impressions: Tibia/Fibula X-Ray 12/23/16 12:39 IMPRESSION: No acute finding involving the tibia or fibula. There is a comminuted distal femoral fracture and advanced degenerative changes in the knee. Femur X-Ray 12/27/16 00:00 IMPRESSION: IMAGE(S) OBTAINED DURING PROCEDURE. Fluoroscopy 12/27/16 00:00 IMPRESSION: Please see combined report for performance of procedure and radiologic supervision and interpretation. Abdomen/Pelvis CT 12/29/16 00:00 IMPRESSION: There is fairly marked gas distention of the colon to the level of the rectosigmoid as noted above. There is a distinct transition point in the rectosigmoid which could represent a stricture and the possibility of a small mass cannot be excluded. Calcified gallstone is identified. Other findings as noted above Abdomen X-Ray 12/30/16 07:00 IMPRESSION: Again there is gaseous distention of multiple large and small bowel loops essentially unchanged as compared to the previous study. NG position is noted above. Other findings as noted above Chest X-Ray 01/05/17 00:00 IMPRESSION: HEART ENLARGED WITHOUT FAILURE. NO OTHER SIGNIFICANT RADIOGRAPHIC FINDING IN THE CHEST. KUB X-Ray 01/05/17 00:00 IMPRESSION: ILEUS. NO CHANGE IN APPEARANCE OF THE ABDOMEN. Assessment & Plan - Diagnosis (1) Closed comminuted intra-articular fracture of distal end of right femur Qualifiers: Encounter type: initial encounter Qualified Code(s): S72.491A - Other fracture of lower end of right femur, initial encounter for closed fracture Is this a current diagnosis for this admission?: Yes (2) Chronic lymphocytic leukemia Is this a current diagnosis for this admission?: Yes (3) Colon distention Is this a current diagnosis for this admission?: Yes (4) Mariela's syndrome Is this a current diagnosis for this admission?: Yes (5) Hypokalemia Is this a current diagnosis for this admission?: YesPlan: Replace potassium IV
[2017-01-07] MEDS: LACTULOSE SYRUP 20 GM/30 ML UDCUP PO SCH (18:28)
[2017-01-07] MEDS: POTASSI CL 20 MEQ/50 ML RIDER 20 MEQ/50 ML RTUPB IV SCH ×2 (19:47→22:52)
[2017-01-07] MEDS: HALOPERIDOL 5 MG TABLET PO SCH (22:54)
[2017-01-07] MEDS: TRAZODONE HCL 50 MG TABLET PO SCH (22:54)
[2017-01-07] MEDS: RIVAROXABAN 10 MG TABLET PO SCH (22:55)
[2017-01-07] MEDS: ARIPIPRAZOLE 5 MG TABLET PO SCH (22:56)
[2017-01-08] MEDS ORDERED: POTASSI CL 20 MEQ/50 ML RIDER 20 MEQ/50 ML RTUPB IV ONE (05:02)
[2017-01-08] MEDS: LANSOPRAZOLE 15 MG TAB.RAP.DR PO SCH (05:14)
[2017-01-08] MEDS: RISPERIDONE 1 MG TAB.RAPDIS PO SCH ×2 (10:25→17:12)
[2017-01-08] MEDS: BENZTROPINE MESYLATE 1 MG TABLET PO SCH ×2 (10:26→17:12)
[2017-01-08] MEDS: LACTULOSE SYRUP 20 GM/30 ML UDCUP PO SCH (17:13)
--- NOTE | 2017-01-08 17:34 | PDOC PROGRESS REPORT ---
Subjective Progress Note for:: 01/08/17 Subjective:: She was seen by the bedside, there is no new complaints today Physical Exam Vital Signs: Temp Pulse Resp BP Pulse Ox 98.1 F 104 H 18 136/71 H 96 01/08/17 15:15 01/08/17 17:00 01/08/17 17:00 01/08/17 15:15 01/08/17 17:00 Intake & Output 01/07/17 01/08/17 01/09/17 06:59 06:59 06:59 Intake Total 1406 1670 560 Output Total 400 2050 1200 Balance 1006 -236 -640 General appearance: PRESENT: no acute distress Eye exam: PRESENT: PERRLA Respiratory exam: PRESENT: clear to auscultation zara Cardiovascular exam: PRESENT: +S2 GI/Abdominal exam: PRESENT: distended Results Laboratory Results: 01/07/17 05:02 01/07/17 05:02 Impressions: Tibia/Fibula X-Ray 12/23/16 12:39 IMPRESSION: No acute finding involving the tibia or fibula. There is a comminuted distal femoral fracture and advanced degenerative changes in the knee. Fluoroscopy 12/27/16 00:00 IMPRESSION: Please see combined report for performance of procedure and radiologic supervision and interpretation. Abdomen/Pelvis CT 12/29/16 00:00 IMPRESSION: There is fairly marked gas distention of the colon to the level of the rectosigmoid as noted above. There is a distinct transition point in the rectosigmoid which could represent a stricture and the possibility of a small mass cannot be excluded. Calcified gallstone is identified. Other findings as noted above Abdomen X-Ray 12/30/16 07:00 IMPRESSION: Again there is gaseous distention of multiple large and small bowel loops essentially unchanged as compared to the previous study. NG position is noted above. Other findings as noted above Chest X-Ray 01/05/17 00:00 IMPRESSION: HEART ENLARGED WITHOUT FAILURE. NO OTHER SIGNIFICANT RADIOGRAPHIC FINDING IN THE CHEST. KUB X-Ray 01/05/17 00:00 IMPRESSION: ILEUS. NO CHANGE IN APPEARANCE OF THE ABDOMEN. Femur X-Ray 01/08/17 00:00 IMPRESSION: Postop right femur as noted above Assessment & Plan - Diagnosis (1) Closed comminuted intra-articular fracture of distal end of right femur Qualifiers: Encounter type: initial encounter Qualified Code(s): S72.491A - Other fracture of lower end of right femur, initial encounter for closed fracture Is this a current diagnosis for this admission?: Yes (2) Chronic lymphocytic leukemia Is this a current diagnosis for this admission?: Yes (3) Colon distention Is this a current diagnosis for this admission?: Yes (4) Aurora's syndrome Is this a current diagnosis for this admission?: Yes (5) Hypokalemia Is this a current diagnosis for this admission?: Yes
[2017-01-08 18:39] LABS: ALANINE AMINOTRANSFERASE 25 U/L (9-52); ALBUMIN 2.3 g/dL (3.5-5.0); ALKALINE PHOSPHATASE 104 U/L (38-126); ANION GAP 10 (5-19); ASPARTATE AMINO TRANSFERASE 17 U/L (14-36); BILIRUBIN,TOTAL 1.2 mg/dL (0.2-1.3); BLOOD UREA NITROGEN 7 mg/dL (7-20); CALCIUM 8.2 mg/dL (8.4-10.2); CARBON DIOXIDE 28 mmol/L (22-30); CHLORIDE 102 mmol/L (98-107); CREATININE RESULT 0.46 mg/dL (0.52-1.25); GLUCOSE 96 mg/dL (75-110); POTASSIUM 3.3 mmol/L (3.6-5.0); SODIUM 139.8 mmol/L (137-145); TOTAL PROTEIN 4.5 g/dL (6.3-8.2)
[2017-01-08] MEDS: ARIPIPRAZOLE 5 MG TABLET PO SCH (21:50)
[2017-01-08] MEDS: HALOPERIDOL 5 MG TABLET PO SCH (21:50)
[2017-01-08] MEDS: RIVAROXABAN 10 MG TABLET PO SCH (21:50)
[2017-01-08] MEDS: TRAZODONE HCL 50 MG TABLET PO SCH (21:50)
[2017-01-09] MEDS: LANSOPRAZOLE 15 MG TAB.RAP.DR PO SCH (05:20)
[2017-01-09 05:26] LABS: ALANINE AMINOTRANSFERASE 27 U/L (9-52); ALBUMIN 2.4 g/dL (3.5-5.0); ALKALINE PHOSPHATASE 114 U/L (38-126); ANION GAP 11 (5-19); ASPARTATE AMINO TRANSFERASE 17 U/L (14-36); BILIRUBIN,TOTAL 1.3 mg/dL (0.2-1.3); BLOOD UREA NITROGEN 6 mg/dL (7-20); CALCIUM 8.4 mg/dL (8.4-10.2); CARBON DIOXIDE 28 mmol/L (22-30); CHLORIDE 102 mmol/L (98-107); CREATININE RESULT 0.44 mg/dL (0.52-1.25); GLUCOSE 88 mg/dL (75-110); POTASSIUM 3.2 mmol/L (3.6-5.0); SODIUM 140.6 mmol/L (137-145); TOTAL PROTEIN 4.8 g/dL (6.3-8.2)
[2017-01-09] MEDS: BENZTROPINE MESYLATE 1 MG TABLET PO SCH ×2 (09:58→17:46)
[2017-01-09] MEDS: RISPERIDONE 1 MG TAB.RAPDIS PO SCH ×2 (09:58→17:46)
[2017-01-09 15:01] LABS: PATH REVIEW PATHOLOGIST REVIEWED
[2017-01-09] MEDS: LACTULOSE SYRUP 20 GM/30 ML UDCUP PO SCH (17:54)
[2017-01-09] MEDS ORDERED: POTASSI CL 20 MEQ/50 ML RIDER 50 ML IV ONE (20:04)
--- NOTE | 2017-01-09 21:15 | PDOC TRANSFER SUMMARY ---
General - Admit/Disc Date/PCP Admission Date/Primary Care Provider: 12/27/16 12:00 Discharge Date: 01/10/17 - Discharge Diagnosis (1) Closed comminuted intra-articular fracture of distal end of right femur Is this a current diagnosis for this admission?: Yes (2) Chronic lymphocytic leukemia Is this a current diagnosis for this admission?: Yes (3) Colon distention Is this a current diagnosis for this admission?: Yes (4) [place]'s syndrome Is this a current diagnosis for this admission?: Yes (5) Hypokalemia Is this a current diagnosis for this admission?: Yes - Additional Information Resuscitation Status: Full Code Home Medications: Acetaminophen [Pain Relief] 2 tab PO ASDIR PRN 04/04/16 Aripiprazole [Abilify 10 mg Tablet] 10 mg PO QHS 04/04/16 Benztropine Mesylate 1 mg PO BID 04/04/16 Haloperidol 15 mg PO QHS 04/04/16 Lorazepam 1 mg PO TID 04/04/16 Risperidone [Risperidone Odt] 4 mg PO BID 04/04/16 Trazodone HCl [Desyrel 50 mg Tablet] 25 mg PO QHS 04/04/16 Omeprazole Magnesium [Prilosec Otc] 1 tab PO QAM 12/23/16 Rivaroxaban [Xarelto 10 mg Tablet] 10 mg PO QHS #0 tablet 01/09/17 History of Present Illness Admission Date/PCP: 12/27/16 12:00 History of Present Illness: Patient was admitted on 12/23/2016 when she fell and sustained fracture of the right distal femur there was no antecedent history of chest pain, no loss of consciousness, and the emergency room she was seen and evaluated x-ray was done that confirmed fracture. Hospital Course Hospital Course: She was seen by orthopedic and she had a retrograde nail of the right distal femur, hospital course was complicated with pseudoobstruction of the colon , diane syndrome. She was seen by the surgeon on she underwent vigorous treatment modalities including decompressive colonoscopy, neostigmine subcutaneously, despite all these interventions the colon remains distended, there was also associated hypokalemia due to diarrhea. Hospital course was prolonged because of the distended abdomen due to the distended colon CT scan of the abdomen and pelvis was done that showed distended colon. She has severe prolonged hypokalemia requiring multiple K riders replacement therapy there is no improvement in the abdominal distention Physical Exam Vital Signs: Temp Pulse Resp BP Pulse Ox 98.3 F 102 H 18 120/62 96 01/09/17 16:14 01/09/17 18:06 01/09/17 18:06 01/09/17 16:14 01/09/17 16:14 Intake & Output 01/08/17 01/09/17 01/10/17 06:59 06:59 06:59 Intake Total 1670 1390 780 Output Total 2050 2720 1900 Balance -380 -1330 -1120 General appearance: PRESENT: no acute distress Eye exam: PRESENT: PERRLA Respiratory exam: PRESENT: clear to auscultation zara Cardiovascular exam: PRESENT: +S1, +S2 GI/Abdominal exam: PRESENT: distended, soft Neurological exam: PRESENT: alert Results Laboratory Results: 01/07/17 05:02 01/09/17 03:54 01/06/17 01/09/17 12:32 03:54 WBC 26.0 H RBC 3.89 Hgb 10.7 L Hct 33.1 L MCV 85 MCH 27.4 MCHC 32.2 RDW 16.2 H Plt Count 192 Sodium 140.6 Potassium 3.2 L Chloride 102 Carbon Dioxide 28 Anion Gap 11 BUN 6 L Creatinine 0.44 L Est GFR ( Amer) > 60 Est GFR (Non-Af Amer) > 60 Glucose 88 Calcium 8.4 Total Bilirubin 1.3 AST 17 ALT 27 Alkaline Phosphatase 114 Total Protein 4.8 L Albumin 2.4 L Impressions: Tibia/Fibula X-Ray 12/23/16 12:39 IMPRESSION: No acute finding involving the tibia or fibula. There is a comminuted distal femoral fracture and advanced degenerative changes in the knee. Fluoroscopy 12/27/16 00:00 IMPRESSION: Please see combined report for performance of procedure and radiologic supervision and interpretation. Abdomen/Pelvis CT 12/29/16 00:00 IMPRESSION: There is fairly marked gas distention of the colon to the level of the rectosigmoid as noted above. There is a distinct transition point in the rectosigmoid which could represent a stricture and the possibility of a small mass cannot be excluded. Calcified gallstone is identified. Other findings as noted above Abdomen X-Ray 12/30/16 07:00 IMPRESSION: Again there is gaseous distention of multiple large and small bowel loops essentially unchanged as compared to the previous study. NG position is noted above. Other findings as noted above Chest X-Ray 01/05/17 00:00 IMPRESSION: HEART ENLARGED WITHOUT FAILURE. NO OTHER SIGNIFICANT RADIOGRAPHIC FINDING IN THE CHEST. KUB X-Ray 01/05/17 00:00 IMPRESSION: ILEUS. NO CHANGE IN APPEARANCE OF THE ABDOMEN. Femur X-Ray 01/08/17 00:00 IMPRESSION: Postop right femur as noted above Plan Discharge Plan: The plan [facility] to [facility] a [facility], regarding the fracture did not syndrome she will followed the recommendation from orthopedic and she is to follow-up with Dr. Moy/Daniel
[2017-01-09 21:36] LABS: ANION GAP 7 (5-19); BLOOD UREA NITROGEN 5 mg/dL (7-20); CALCIUM 8.5 mg/dL (8.4-10.2); CARBON DIOXIDE 33 mmol/L (22-30); CHLORIDE 102 mmol/L (98-107); CREATININE RESULT 0.43 mg/dL (0.52-1.25); GLUCOSE 85 mg/dL (75-110); SODIUM 141.8 mmol/L (137-145)
[2017-01-09 21:40] LABS: POTASSIUM 2.9 mmol/L (3.6-5.0)
[2017-01-09] MEDS: ARIPIPRAZOLE 5 MG TABLET PO SCH (23:15)
[2017-01-09] MEDS: RIVAROXABAN 10 MG TABLET PO SCH (23:15)
[2017-01-09] MEDS: TRAZODONE HCL 50 MG TABLET PO SCH (23:16)
[2017-01-09] MEDS: HALOPERIDOL 5 MG TABLET PO SCH (23:17)
[2017-01-10] MEDS: POTASSI CL 20 MEQ/50 ML RIDER 20 MEQ/50 ML RTUPB IV SCH ×3 (00:03→04:33)
[2017-01-10] MEDS: LANSOPRAZOLE 15 MG TAB.RAP.DR PO SCH (05:51)
[2017-01-10 07:31] LABS: ANION GAP 9 (5-19); BLOOD UREA NITROGEN 4 mg/dL (7-20); CALCIUM 8.4 mg/dL (8.4-10.2); CARBON DIOXIDE 30 mmol/L (22-30); CHLORIDE 104 mmol/L (98-107); CREATININE RESULT 0.43 mg/dL (0.52-1.25); GLUCOSE 95 mg/dL (75-110); SODIUM 142.6 mmol/L (137-145)
[2017-01-10 07:45] LABS: POTASSIUM 3.9 mmol/L (3.6-5.0)
[2017-01-10] MEDS: RISPERIDONE 1 MG TAB.RAPDIS PO SCH (10:06)
[2017-01-10] MEDS: BENZTROPINE MESYLATE 1 MG TABLET PO SCH (10:06)
[2017-01-10 13:31] VITALS: BP 169/70
== END 2017-01-10 15:19 | DRG 481 ==
LOC: ER 12:25 → INTOOBSV 14:23 → EH 14:23 → 4S 17:56 → OBSVTOIN 12-27 12:00 → 4N 12-30 20:31
PROVIDERS: ADMIT Internal Medicine; ATTEND Internal Medicine
PROC: 0QSB36Z Reposition Right Lower Femur with Intramedullary Internal Fixation Device, Percutaneous Approach (ICD-10-PCS; principal; 2016-12-27 14:45)
PROC: 0D9670Z Drainage of Stomach with Drainage Device, Via Natural or Artificial Opening (ICD-10-PCS; 2016-12-29)
PROC: 0D9E8ZZ Drainage of Large Intestine, Via Natural or Artificial Opening Endoscopic (ICD-10-PCS; 2016-12-31)
DX: S72.491A Other fracture of lower end of right femur, initial encounter for closed fracture (principal); C91.10 Chronic lymphocytic leukemia of B-cell type not having achieved remission; W19.XXXA Unspecified fall, initial encounter; Y93.E1 Activity, personal bathing and showering; Y92.002 Bathroom of unspecified non-institutional (private) residence as the place of occurrence of the external cause; Y99.9 Unspecified external cause status; E86.0 Dehydration; K59.8 Other specified functional intestinal disorders; E87.6 Hypokalemia; F31.9 Bipolar disorder, unspecified; F20.9 Schizophrenia, unspecified; Z79.899 Other long term (current) drug therapy; F17.200 Nicotine dependence, unspecified, uncomplicated; R19.7 Diarrhea, unspecified
CPT/HCPCS: 00810; 01360; 36415; 36430; 45378; 71010; 74000; 74020; 74177; 80048; 80053; 81001; 83735; 85025; 85027; 85610; 85730; 86850; 86900; 86901; 86920; 87040; 87086; 93005; 93010; 94640; 94667; 94799; C1713; G0378; J0131; J0330; J0690; J0744; J1100; J1170; J1610; J1885; J2060; J2250; J2270; J2405; J2704; J3010; J3480; J3490; J7030; J7120; J7620; L1830; P9016; S0119

== ENCOUNTER 2017-01-13 05:33 | Inpatient (IN) | payer MEDICAID ==
[2017-01-13] MEDS ORDERED: NORMAL SALINE 1000 ML 1,000 ML IV ONE (06:38)
--- NOTE | 2017-01-13 07:28 | ER Document Report ---
ED General - General Chief Complaint: Abnormal Lab Results Stated Complaint: HYPOKALEMIA Notes: The patient is a 61-year-old female, past medical history CLL, femur fracture last week, persistent tachycardia, presents from the halfway after her potassium was 2.5. [facility] after she required multiple potassium riders due to hypokalemia from diarrhea. The patient denies any shortness of breath, nausea, vomiting, abdominal pain, hip pain, diarrhea, constipation, chest pain or fevers. TRAVEL OUTSIDE OF THE [place] IN LAST 30 DAYS: No - Related Data Allergies/Adverse Reactions: No Known Allergies Allergy (Verified 12/23/16 14:54) Past Medical History - General Information source: Patient - Social History Smoking Status: Unknown if Ever Smoked Frequency of alcohol use: None Drug Abuse: None Family History: Reviewed & Not Pertinent Patient has suicidal ideation: No Patient has homicidal ideation: No - Past Medical History Cardiac Medical History: Reports: Hx Hypertension Denies: Hx Coronary Artery Disease, Hx Heart Attack Pulmonary Medical History: Denies: Hx Asthma, Hx Bronchitis, Hx COPD, Hx Pneumonia Neurological Medical History: Denies: Hx Cerebrovascular Accident, Hx Seizures Renal/ Medical History: Denies: Hx Peritoneal Dialysis Malignancy Medical History: Reports: Hx Leukemia - Chronic lymphocytic leukemia GI Medical History: Reports: Hx Gastroesophageal Reflux Disease Musculoskeltal Medical History: Denies Hx Arthritis Past Surgical History: Reports: Hx Cardiac Surgery - 3 - Immunizations Hx Diphtheria, Pertussis, Tetanus Vaccination: No Review of Systems - Review of Systems Notes: REVIEW OF SYSTEMS: CONSTITUTIONAL: -fevers, -chills EENT: -eye pain, -difficulty swallowing, -nasal congestion CARDIOVASCULAR:-chest pain, -syncope. RESPIRATORY: -cough, -SOB GASTROINTESTINAL: -abdominal pain, -nausea, -vomiting, -diarrhea GENITOURINARY: -dysuria, -hematuria MUSCULOSKELETAL: -back pain, -neck pain SKIN: -rash or skin lesions. HEMATOLOGIC: -easy bruising or bleeding. LYMPHATIC: -swollen, enlarged glands. NEUROLOGICAL: -altered mental status or loss of consciousness, -headache, - neurologic symptoms PSYCHIATRIC: -anxiety, -depression. ALL OTHER SYSTEMS REVIEWED AND NEGATIVE. Physical Exam - Vital signs Vitals: Resp BP Pulse Ox 27 H 109/53 L 97 01/13/17 05:48 01/13/17 05:48 01/13/17 05:48 - Notes Notes: PHYSICAL EXAMINATION: GENERAL: Well-appearing, well-nourished and in no acute distress. HEAD: Atraumatic, normocephalic. EYES: Pupils equal round and reactive to light, extraocular movements intact, sclera anicteric, conjunctiva are normal. ENT: nares patent, oropharynx clear without exudates. Moist mucous membranes. NECK: Normal range of motion, supple without lymphadenopathy LUNGS: Breath sounds clear to auscultation bilaterally and equal. No wheezes rales or rhonchi. HEART: Tachycardic, regular rhythm ABDOMEN: Soft, nontender, normoactive bowel sounds. No guarding, no rebound. No masses appreciated. EXTREMITIES: Normal range of motion, no pitting or edema. No cyanosis. NEUROLOGICAL: Cranial nerves grossly intact. Normal speech, normal gait. Normal sensory, motor, and reflex exams. PSYCH: Normal mood, normal affect. SKIN: Warm, Dry, normal turgor, no rashes or lesions noted. Course - Re-evaluation Re-evalutation: Looking through patient's hospital course last week, patient had persistent tachycardia from 104 to 130s throughout her stay. She was discharged with a heart rate of 118 and was told that is normal for her. She does have leukocytosis today, but this is chronic in nature, most likely due from her CLL. No signs of infection at this time. Pt with severe hypokalemia, most likely from her diarrhea. She needs IV and p.o. replacement of magnesium. 01/13/17 09:[address] Miller and he has accepted patient to inpatient telemetry for monitoring of her severe hypokalemia. - Vital Signs Vital signs: Temp Pulse Resp BP Pulse Ox 99.2 F 108 H 19 117/58 L 98 01/13/17 06:05 01/13/17 06:05 01/13/17 07:00 01/13/17 07:00 01/13/17 07:00 - Laboratory Result Diagrams: 01/13/17 07:20 01/13/17 07:20 Laboratory results interpreted by me: 01/13/17 01/13/17 07:20 07:20 WBC 28.6 H RBC 3.62 L Hgb 10.1 L Hct 31.0 L RDW 17.8 H Band Neutrophils % 1 L Monocytes % (Manual) 2 L Abs Neuts (Manual) 19.4 H Abs Lymphs (Manual) 8.6 H Sodium 134.8 L Potassium 2.4 L* Chloride 97 L BUN 23 H Est GFR (Non-Af Amer) 59 L Calcium 8.1 L Total Bilirubin 2.4 H Direct Bilirubin 0.8 H Alkaline Phosphatase 148 H Total Protein 4.7 L Albumin 2.3 L - Diagnostic Test Radiology reviewed: Image reviewed, Reports reviewed - EKG Interpretation by Me EKG shows normal: Sinus rhythm, Byron, Intervals, QRS Complexes, ST-T Waves Rate: Tachycardia Discharge - Discharge Clinical Impression: Hypokalemia Condition: Stable Admitting Provider: Jennifer Unit Admitted: Telemetry Referrals: VERENICE MILLER MD [Primary Care Provider] - Follow up as needed
[2017-01-13 07:36] LABS: HEMOGLOBIN 10.1 g/dL (12.0-15.5); HGB HCT DIFFERENCE -0.7; MEAN CORPUSCULAR HGB CONC 32.8 g/dL (32.0-36.0); MEAN CORPUSCULAR VOLUME 86 fl (80-97); RED BLOOD COUNT 3.62 10^6/uL (3.72-5.28); RED CELL DISTRIBUTION WIDTH 17.8 % (11.5-14.0); WHITE BLOOD COUNT 28.6 10^3/uL (4.0-10.5)
[2017-01-13 07:46] LABS: ALANINE AMINOTRANSFERASE 29 U/L (9-52); ALBUMIN 2.3 g/dL (3.5-5.0); ALKALINE PHOSPHATASE 148 U/L (38-126); ANION GAP 9 (5-19); ASPARTATE AMINO TRANSFERASE 16 U/L (14-36); BILIRUBIN,DIRECT 0.8 mg/dL (0.0-0.4); BILIRUBIN,TOTAL 2.4 mg/dL (0.2-1.3); BLOOD UREA NITROGEN 23 mg/dL (7-20); CALCIUM 8.1 mg/dL (8.4-10.2); CARBON DIOXIDE 29 mmol/L (22-30); CHLORIDE 97 mmol/L (98-107); CREATININE RESULT 0.95 mg/dL (0.52-1.25); GLUCOSE 103 mg/dL (75-110); SODIUM 134.8 mmol/L (137-145); TOTAL PROTEIN 4.7 g/dL (6.3-8.2)
[2017-01-13 07:56] LABS: POTASSIUM 2.4 mmol/L (3.6-5.0)
[2017-01-13] MEDS ORDERED: POTASSIUM CHLORIDE 10 MEQ TABLET.SA PO ONE (08:07)
[2017-01-13 08:25] LABS: ANISOCYTOSIS 2+; BAND NEUTROPHILS % (MANUAL) 1 % (3-5); BASOPHILS % (MANUAL) 0 % (0-2); EOSINOPHILS % (MANUAL) 0 % (0-6); LYMPHOCYTES % (MANUAL) 30 % (13-45); OVALOCYTES SLIGHT; POIKILOCYTOSIS SLIGHT; POLYCHROMASIA SLIGHT; TOTAL CELLS COUNTED 100; TOXIC GRANULATION SLIGHT
[2017-01-13 08:29] LABS: SMUDGE CELLS PRESENT
[2017-01-13] MEDS ORDERED: ACETAMINOPHEN 325 MG TABLET PO ONE (08:30)
[2017-01-13] MEDS: MAGNESIUM SULFATE/D5W 100 ML IV SCH ×2 (08:55→10:31)
[2017-01-13] MEDS: POTASSI CL 20 MEQ/50 ML RIDER 50 ML IV SCH ×4 (08:56→15:36)
[2017-01-13] MEDS ORDERED: IBUPROFEN 600 MG TABLET PO ONE (09:56)
--- NOTE | 2017-01-13 18:18 | EKG REPORT ---
SEVERITY:- ABNORMAL ECG - SINUS TACHYCARDIA WITH PACS [phone] NONSPECIFIC T ABNORMALITIES, DIFFUSE LEADS : Confirmed by: Dave Hudson MD 13-Jan-2017 18:18:03
[2017-01-13] MEDS ORDERED: ACETAMINOPHEN 325 MG TABLET PO PRN (19:08)
[2017-01-13 19:11] LABS: ANION GAP 11 (5-19); BLOOD UREA NITROGEN 28 mg/dL (7-20); CARBON DIOXIDE 25 mmol/L (22-30); CHLORIDE 99 mmol/L (98-107); CREATININE RESULT 1.17 mg/dL (0.52-1.25); GLUCOSE 92 mg/dL (75-110); SODIUM 135.3 mmol/L (137-145)
[2017-01-13] MEDS ORDERED: RISPERIDONE 4 MG PO SCH (19:15)
[2017-01-13] MEDS ORDERED: LISINOPRIL 10 MG TABLET PO SCH (19:15)
[2017-01-13 19:19] LABS: POTASSIUM 2.8 mmol/L (3.6-5.0)
--- NOTE | 2017-01-13 19:19 | PDOC H&P ---
History of Present Illness Admission Date/PCP: 01/13/17 09:23 VERENICE MILLER MD History of Present Illness: INDY VENTURA is a 61 year old female, she was just discharged from this hospital on 01/10/2017 when she had close comminuted intra-articular fracture of the distal end of the right femur, diarrhea complicated with hypokalemia, mariela syndrome, she was transferred to the alf for rehabilitation. She had routine lab work and she was found to have serum potassium of 2.4, she was then referred to the emergency room ,in the ER she was advised to be admitted to the hospital for replacement therapy of the severe hypokalemia. She continues to have severe diarrhea which was present the last time she was admitted, but improved on discharge. The last time she was in the hospital she had severe abdominal distention and she underwent decompression colonoscopy and also treatment with neostigmine subcutaneously. Past Medical History Cardiac Medical History: Reports: Hypertension Malignancy Medical History: Reports: Leukemia - Chronic lymphocytic leukemia GI Medical History: Reports: Gastroesophageal Reflux Disease Psychiatric Medical History: Reports: Schizoaffective Disorder Hematology: Social History Smoking Status: Former Smoker - She has not smoked since admitted to the hospital Frequency of Alcohol Use: None Family History Family History: Reviewed & Not Pertinent Parental Family History Reviewed: Yes Children Family History Reviewed: Yes Sibling(s) Family History Reviewed.: Yes Medication/Allergy Home Medications: Acetaminophen [Tylenol 325 mg Tablet] 650 mg PO Q4HP PRN 01/13/17 Aripiprazole [Abilify 10 mg Tablet] 10 mg PO QHS 01/13/17 Benztropine Mesylate [Cogentin 1 mg Tablet] 1 mg PO BID 01/13/17 Haloperidol [Haldol 5 mg Tablet] 15 mg PO QHS 01/13/17 Lisinopril [Prinivil 10 mg Tablet] 10 mg PO DAILY 01/13/17 Lorazepam [Ativan 1 mg Tablet] 1 mg PO TID 01/13/17 Omeprazole Magnesium [Prilosec Otc] 20 mg PO QAM 01/13/17 Risperidone [Risperdal] 4 mg PO BID 01/13/17 Rivaroxaban [Xarelto 10 mg Tablet] 10 mg PO QHS 01/13/17 Trazodone HCl [Desyrel 50 mg Tablet] 25 mg PO QHS 01/13/17 Allergies/Adverse Reactions: No Known Allergies Allergy (Verified 12/23/16 14:54) Review of Systems Constitutional: ABSENT: chills, fever(s), headache(s), weight gain, weight loss Eyes: ABSENT: visual disturbances Ears: ABSENT: hearing changes Cardiovascular: ABSENT: chest pain, dyspnea on exertion, edema, orthropnea, palpitations Respiratory: ABSENT: cough, hemoptysis Gastrointestinal: PRESENT: diarrhea Genitourinary: ABSENT: dysuria, hematuria Musculoskeletal: ABSENT: joint swelling Integumentary: ABSENT: rash, wounds Neurological: ABSENT: abnormal gait, abnormal speech, confusion, dizziness, focal weakness, syncope Psychiatric: ABSENT: anxiety, depression, homidical ideation, suicidal ideation Endocrine: ABSENT: cold intolerance, heat intolerance, menstrual abnormalities, polydipsia, polyuria Hematologic/Lymphatic: ABSENT: easy bleeding, easy bruising, lymphadenopathy Physical Exam Vital Signs: Temp Pulse Resp BP Pulse Ox 97.5 F 105 H 20 109/64 95 01/13/17 15:17 01/13/17 15:17 01/13/17 15:17 01/13/17 15:17 01/13/17 15:17 Intake & Output 01/12/17 01/13/17 01/14/17 06:59 06:59 06:59 Intake Total 350 Balance 350 Weight 112 kg Head exam: PRESENT: atraumatic, normocephalic Eye exam: PRESENT: conjunctiva pink, EOMI, PERRLA Ear exam: PRESENT: normal external ear exam Mouth exam: PRESENT: moist, tongue midline Neck exam: PRESENT: full ROM. ABSENT: carotid bruit, JVD, lymphadenopathy, thyromegaly Respiratory exam: PRESENT: rhonchi Cardiovascular exam: PRESENT: RRR, +S1, +S2 GI/Abdominal exam: PRESENT: distended Rectal exam: PRESENT: deferred Neurological exam: PRESENT: alert, CN II-XII grossly intact Skin exam: PRESENT: dry, intact, warm. ABSENT: cyanosis, rash Results Impressions: Chest X-Ray 01/13/17 08:12 IMPRESSION: HEART ENLARGED WITHOUT FAILURE. NO OTHER SIGNIFICANT RADIOGRAPHIC FINDING IN THE CHEST. Assessment & Plan - Diagnosis (1) Hypokalemia, gastrointestinal losses Is this a current diagnosis for this admission?: YesPlan: She has severe hypokalemia due to persistent diarrhea, patient is better managed inpatient because she is presently from a alf on she has ongoing diarrhea with severe hypokalemia with potential for complications so she is admitted for the placement therapy. (2) Diarrhea Qualifiers: Diarrhea type: unspecified type Qualified Code(s): R19.7 - Diarrhea , unspecified Is this a current diagnosis for this admission?: YesPlan: The diarrhea is non infectious the last time she was in the hospital she was evaluated for etiology of the diarrhea (3) Mariela's syndrome Is this a current diagnosis for this admission?: Yes
[2017-01-13] MEDS ORDERED: RISPERIDONE 1 MG TABLET PO ONE (22:00)
[2017-01-13] MEDS ORDERED: (PENDING PHARMACY ID) (Aripiprazole [Abilify 10 Mg Tablet] 10 MG) PO SCH (22:00)
[2017-01-13] MEDS: TRAZODONE HCL 50 MG TABLET PO SCH (22:27)
[2017-01-13] MEDS: LORAZEPAM 1 MG TABLET PO SCH (22:27)
[2017-01-13] MEDS: RIVAROXABAN 10 MG TABLET PO SCH (22:27)
[2017-01-13] MEDS: BENZTROPINE MESYLATE 1 MG TABLET PO SCH (22:27)
[2017-01-13] MEDS: POTASSI CL 40 MEQ/D5-1/2NS 1L 1,000 ML IV PRN (22:27)
[2017-01-13] MEDS: HALOPERIDOL 5 MG TABLET PO SCH (22:27)
[2017-01-13] MEDS: ARIPIPRAZOLE 5 MG TABLET PO SCH (22:27)
[2017-01-13] MEDS: LISINOPRIL 10 MG TABLET PO SCH (22:39)
[2017-01-14] MEDS: LORAZEPAM 1 MG TABLET PO SCH ×3 (06:04→22:50)
[2017-01-14] MEDS: LANSOPRAZOLE 15 MG TAB.RAP.DR PO SCH (08:16)
[2017-01-14] MEDS: RISPERIDONE 1 MG TABLET PO SCH ×2 (10:47→17:04)
[2017-01-14] MEDS: BENZTROPINE MESYLATE 1 MG TABLET PO SCH ×2 (10:47→22:50)
--- NOTE | 2017-01-14 11:26 | PDOC PROGRESS REPORT ---
Subjective Progress Note for:: 01/14/17 Subjective:: pt is doing well pt denied any chest pain no sob Physical Exam Vital Signs: Temp Pulse Resp BP Pulse Ox 98.2 F 107 H 22 H 103/62 96 01/14/17 08:00 01/14/17 08:00 01/14/17 08:00 01/14/17 08:00 01/14/17 08:00 Intake & Output 01/13/17 01/14/17 01/15/17 06:59 06:59 06:59 Intake Total 1193 Balance 1193 Weight 112.3 kg General appearance: PRESENT: no acute distress, well-developed, well-nourished Head exam: PRESENT: atraumatic, normocephalic Eye exam: PRESENT: conjunctiva pink, EOMI, PERRLA. ABSENT: scleral icterus Ear exam: PRESENT: normal external ear exam Mouth exam: PRESENT: moist, tongue midline Neck exam: PRESENT: full ROM. ABSENT: carotid bruit, JVD, lymphadenopathy, thyromegaly Cardiovascular exam: PRESENT: RRR. ABSENT: diastolic murmur, rubs, systolic murmur Pulses: PRESENT: normal dorsalis pedis pul, +2 pedal pulses bilateral Vascular exam: PRESENT: normal capillary refill GI/Abdominal exam: PRESENT: normal bowel sounds, soft. ABSENT: distended, guarding, mass, organolmegaly, rebound, tenderness Rectal exam: PRESENT: deferred Neurological exam: PRESENT: alert, awake, oriented to person, oriented to place , oriented to time, oriented to situation, CN II-XII grossly intact. ABSENT: motor sensory deficit Psychiatric exam: PRESENT: appropriate affect, normal mood. ABSENT: homicidal ideation, suicidal ideation Skin exam: PRESENT: dry, intact, warm. ABSENT: cyanosis, rash Results Laboratory Results: 01/13/17 18:35 Sodium 135.3 L Potassium 2.8 L* Chloride 99 Carbon Dioxide 25 Anion Gap 11 BUN 28 H Creatinine 1.17 Est GFR ( Amer) 57 L Est GFR (Non-Af Amer) 47 L Glucose 92 Calcium 8.0 L Impressions: Chest X-Ray 01/13/17 08:12 IMPRESSION: HEART ENLARGED WITHOUT FAILURE. NO OTHER SIGNIFICANT RADIOGRAPHIC FINDING IN THE CHEST. Assessment & Plan - Diagnosis (1) Hypokalemia Is this a current diagnosis for this admission?: YesPlan: replace potasiium (2) Chronic lymphocytic leukemia Is this a current diagnosis for this admission?: YesPlan: stable (3) Diarrhea Qualifiers: Diarrhea type: unspecified type Qualified Code(s): R19.7 - Diarrhea , unspecified Is this a current diagnosis for this admission?: YesPlan: cont curr med (4) [place]'s syndrome Is this a current diagnosis for this admission?: YesPlan: pt seen gi in past - Time Time Spent with patient: 15-24 minutes Medications reviewed and adjusted accordingly: Yes Anticipated discharge: Other Within: Other - Inpatient Certification Medical Necessity: Need For IV Fluids Post Hospital Care: D/C Soa Engineer Documentation - Plan Summary Plan Summary: check custom harvester 7 now cont curr med
[2017-01-14 11:40] LABS: ANION GAP 11 (5-19); BLOOD UREA NITROGEN 27 mg/dL (7-20); CALCIUM 8.2 mg/dL (8.4-10.2); CARBON DIOXIDE 24 mmol/L (22-30); CHLORIDE 101 mmol/L (98-107); CREATININE RESULT 0.82 mg/dL (0.52-1.25); GLUCOSE 109 mg/dL (75-110); SODIUM 135.6 mmol/L (137-145)
[2017-01-14 11:50] LABS: POTASSIUM 2.9 mmol/L (3.6-5.0)
[2017-01-14] MEDS ORDERED: POTASSIUM CHLORIDE 10 MEQ TABLET.SA PO ONE ×2 (13:00→17:00)
[2017-01-14] MEDS: POTASSI CL 40 MEQ/D5-1/2NS 1L 1,000 ML IV PRN (13:09)
[2017-01-14] MEDS ORDERED: HALOPERIDOL LACTATE INJ 5 MG/1 ML VIAL IM ONE (14:00)
--- NOTE | 2017-01-14 17:22 | EKG REPORT ---
SEVERITY:- ABNORMAL ECG - SINUS TACHYCARDIA WITH PAC DIFFUSE NONSPECIFIC ST-T CHANGES. : Confirmed by: Dave Hudson MD 14-Jan-2017 17:21:36
[2017-01-14 18:38] LABS: ANION GAP 10 (5-19); BLOOD UREA NITROGEN 25 mg/dL (7-20); CALCIUM 8.5 mg/dL (8.4-10.2); CARBON DIOXIDE 24 mmol/L (22-30); CHLORIDE 102 mmol/L (98-107); CREATININE RESULT 0.66 mg/dL (0.52-1.25); GLUCOSE 119 mg/dL (75-110); POTASSIUM 3.4 mmol/L (3.6-5.0); SODIUM 135.7 mmol/L (137-145)
[2017-01-14] MEDS: LISINOPRIL 10 MG TABLET PO SCH (20:53)
[2017-01-14] MEDS: HALOPERIDOL 5 MG TABLET PO SCH (22:50)
[2017-01-14] MEDS: TRAZODONE HCL 50 MG TABLET PO SCH (22:50)
[2017-01-14] MEDS: RIVAROXABAN 10 MG TABLET PO SCH (22:50)
[2017-01-14] MEDS: ARIPIPRAZOLE 5 MG TABLET PO SCH (22:50)
[2017-01-15 05:47] LABS: ANION GAP 8 (5-19); BLOOD UREA NITROGEN 22 mg/dL (7-20); CALCIUM 7.9 mg/dL (8.4-10.2); CARBON DIOXIDE 25 mmol/L (22-30); CHLORIDE 103 mmol/L (98-107); CREATININE RESULT 0.68 mg/dL (0.52-1.25); GLUCOSE 93 mg/dL (75-110); POTASSIUM 3.1 mmol/L (3.6-5.0); SODIUM 136.3 mmol/L (137-145)
[2017-01-15] MEDS: LORAZEPAM 1 MG TABLET PO SCH ×3 (06:21→23:06)
[2017-01-15] MEDS: POTASSI CL 40 MEQ/D5-1/2NS 1L 1,000 ML IV PRN ×2 (06:21→23:05)
[2017-01-15] MEDS ORDERED: POTASSIUM CHLORIDE 10 MEQ TABLET.SA PO ONE (07:42)
[2017-01-15] MEDS: LANSOPRAZOLE 15 MG TAB.RAP.DR PO SCH (08:27)
[2017-01-15] MEDS: RISPERIDONE 1 MG TABLET PO SCH ×2 (09:22→17:28)
[2017-01-15] MEDS: BENZTROPINE MESYLATE 1 MG TABLET PO SCH ×2 (09:22→23:06)
--- NOTE | 2017-01-15 10:41 | PDOC PROGRESS REPORT ---
Subjective Progress Note for:: 01/15/17 Subjective:: pt is doing well pt denied any chest pain no sob Physical Exam Vital Signs: Temp Pulse Resp BP Pulse Ox 98.0 F 110 H 18 138/69 H 96 01/15/17 07:44 01/15/17 07:44 01/15/17 07:44 01/15/17 07:44 01/15/17 07:44 Intake & Output 01/14/17 01/15/17 01/16/17 06:59 06:59 06:59 Intake Total 1193 2597 Output Total 700 Balance 1193 1897 Weight 112.3 kg General appearance: PRESENT: no acute distress Head exam: PRESENT: normocephalic Eye exam: PRESENT: PERRLA Mouth exam: PRESENT: neck supple Respiratory exam: PRESENT: clear to auscultation zara Cardiovascular exam: PRESENT: +S1, +S2 GI/Abdominal exam: PRESENT: distended, normal bowel sounds. ABSENT: tenderness Neurological exam: PRESENT: alert, awake Psychiatric exam: PRESENT: anxious Results Laboratory Results: 01/15/17 04:24 01/14/17 01/14/17 01/14/17 11:13 11:13 18:13 Sodium 135.6 L 135.7 L Potassium 2.9 L* 3.4 L Chloride 101 102 Carbon Dioxide 24 24 Anion Gap 11 10 BUN 27 H 25 H Creatinine 0.82 0.66 Est GFR ( Amer) > 60 > 60 Est GFR (Non-Af Amer) > 60 > 60 Glucose 109 119 H Calcium 8.2 L 8.5 Magnesium 2.4 H 01/15/17 04:24 Sodium 136.3 L Potassium 3.1 L Chloride 103 Carbon Dioxide 25 Anion Gap 8 BUN 22 H Creatinine 0.68 Est GFR ( Amer) > 60 Est GFR (Non-Af Amer) > 60 Glucose 93 Calcium 7.9 L Magnesium Impressions: Chest X-Ray 01/13/17 08:12 IMPRESSION: HEART ENLARGED WITHOUT FAILURE. NO OTHER SIGNIFICANT RADIOGRAPHIC FINDING IN THE CHEST. Assessment & Plan - Diagnosis (1) Hypokalemia Is this a current diagnosis for this admission?: YesPlan: replace potasiium (2) Chronic lymphocytic leukemia Is this a current diagnosis for this admission?: YesPlan: stable (3) Diarrhea Qualifiers: Diarrhea type: unspecified type Qualified Code(s): R19.7 - Diarrhea , unspecified Is this a current diagnosis for this admission?: YesPlan: cont curr med (4) Mariela's syndrome Is this a current diagnosis for this admission?: YesPlan: pt seen gi in past - Time Time Spent with patient: 15-24 minutes Medications reviewed and adjusted accordingly: Yes Anticipated discharge: Other Within: Other - Inpatient Certification Medical Necessity: Need Close Monitoring Due to Risk of Patient Decompensation Post Hospital Care: D/C Orthotist/Prosthetist Documentation - Plan Summary Plan Summary: order echo replace potassium
[2017-01-15] MEDS: HALOPERIDOL 5 MG TABLET PO SCH (23:05)
[2017-01-15] MEDS: ARIPIPRAZOLE 5 MG TABLET PO SCH (23:05)
[2017-01-15] MEDS: TRAZODONE HCL 50 MG TABLET PO SCH (23:06)
[2017-01-15] MEDS: POTASSIUM CHLORIDE 10 MEQ TABLET.SA PO SCH (23:06)
[2017-01-15] MEDS: RIVAROXABAN 10 MG TABLET PO SCH (23:07)
[2017-01-15] MEDS: LISINOPRIL 10 MG TABLET PO SCH (23:13)
[2017-01-16] MEDS: LORAZEPAM 1 MG TABLET PO SCH ×3 (06:46→23:48)
[2017-01-16 07:47] LABS: ABSOLUTE EOSINOPHILS # (AUTO) 0.1 10^3/uL (0.0-0.6); ABSOLUTE LYMPHOCYTES (AUTO) 6.7 10^3/uL (0.5-4.7); ABSOLUTE MONOCYTES (AUTO) 1.2 10^3/uL (0.1-1.4); ABSOLUTE NEUT (AUTO) 11.9 10^3/uL (1.7-8.2); BASOPHILS % (AUTO) 0.2 % (0-2); EOSINOPHILS % (AUTO) 0.4 % (0-6); HEMATOCRIT 28.9 % (36.0-47.0); HEMOGLOBIN 9.4 g/dL (12.0-15.5); HGB HCT DIFFERENCE -0.7; LYMPHOCYTES % (AUTO) 33.6 % (13-45); MEAN CORPUSCULAR HGB CONC 32.6 g/dL (32.0-36.0); MEAN CORPUSCULAR VOLUME 86 fl (80-97); RED BLOOD COUNT 3.37 10^6/uL (3.72-5.28); RED CELL DISTRIBUTION WIDTH 17.2 % (11.5-14.0); SEGMENTED NEUTROPHILS % (AUTO) 59.8 % (42-78); WHITE BLOOD COUNT 19.9 10^3/uL (4.0-10.5)
[2017-01-16 08:06] LABS: ANION GAP 11 (5-19); BLOOD UREA NITROGEN 13 mg/dL (7-20); CALCIUM 8.3 mg/dL (8.4-10.2); CARBON DIOXIDE 25 mmol/L (22-30); CHLORIDE 103 mmol/L (98-107); CREATININE RESULT 0.55 mg/dL (0.52-1.25); GLUCOSE 102 mg/dL (75-110); POTASSIUM 3.3 mmol/L (3.6-5.0); SODIUM 139.1 mmol/L (137-145)
[2017-01-16] MEDS: POTASSIUM CHLORIDE 10 MEQ TABLET.SA PO SCH ×2 (10:49→23:46)
[2017-01-16] MEDS: LANSOPRAZOLE 15 MG TAB.RAP.DR PO SCH (10:49)
[2017-01-16] MEDS: BENZTROPINE MESYLATE 1 MG TABLET PO SCH ×2 (10:49→23:46)
[2017-01-16] MEDS: RISPERIDONE 1 MG TABLET PO SCH ×2 (10:50→17:34)
[2017-01-16] MEDS ORDERED: IPRATROPIUM/ALBUTEROL 0.5-2.5 MG/3 ML AMPUL NEB PRN (13:58)
[2017-01-16] MEDS ORDERED: LOPERAMIDE HCL 2 MG CAPSULE PO PRN (13:59)
[2017-01-16] MEDS ORDERED: POTASSIUM CHLORIDE 20 MEQ/50 ML RTU IV SCH (14:15)
[2017-01-16] MEDS ORDERED: LOPERAMIDE HCL 2 MG CAPSULE PO ONE (14:15)
[2017-01-16] MEDS ORDERED: ONDANSETRON HCL INJ/PF 4 MG/2 ML SDV ONE (16:02)
[2017-01-16] MEDS ORDERED: ONDANSETRON HCL INJ/PF 4 MG/2 ML SDV IV PRN (16:05)
[2017-01-16] MEDS: POTASSI CL 40 MEQ/D5-1/2NS 1L 1,000 ML IV PRN (16:07)
[2017-01-16 16:18] LABS: ARTERIAL BLOOD BASE EXCESS 0.2 mmol/L; ARTERIAL BLOOD O2 SATURATION 96.8 % (94-98)
[2017-01-16] MEDS ORDERED: FUROSEMIDE INJ/PF 40 MG/4 ML SDV ONE (16:50)
--- NOTE | 2017-01-16 20:25 | XCELERA REPORT ---
[address] [address] Transthoracic Echocardiogram Report Name: INDY VENTURA Age: 61 yrs Gender: Female : 1955 Patient Status: Inpatient Patient Location: 5\S\535\S\A Study Date: 01/16/2017 09:51 AM Height: 64 in Weight: 247 lb BSA: 2.1 m2 Procedure: A complete two-dimensional transthoracic echocardiogram was performed (2D, M-mode, spectral and color flow Doppler). The study was technically difficult with many images being suboptimal in quality. Reason For Study: sinus trachycardia Ordering Physician: JEREL SCHUSTER Performed By: Mildred Mcintyre Interpretation Summary The left ventricular ejection fraction is normal. Doppler measurements suggest impaired left ventricular relaxation, which is associated with grade I/IV or mild diastolic dysfunction There is mild concentric left ventricular hypertrophy. The left ventricle is grossly normal size. Wall motion cannot be accurately commented on, but no definite regional wall motion abnormalities noted. The right ventricle is borderline dilated. The right atrium is normal. The left atrial size is normal. There is a trace to mild amount of mitral regurgitation There is no mitral valve stenosis. No aortic regurgitation is present. There is no aortic valve stenosis There is a trace to mild amount of tricuspid regurgitation There is mild pulmonary hypertension by echo Right ventricular systolic pressure is estimated to be elevated at 30- 40mmHg. The aortic root is not well visualized but is probably normal size. The inferior vena cava was not well visualized There is no pericardial effusion. MMode/2D Measurements \T\ Calculations RVDd: 3.0 cm LVIDd: 5.0 cm FS: 20.5 % Ao root diam: 3.0 cm IVSd: 0.83 cm LVIDs: 4.0 cm EDV(Teich): 118.5 ml LVPWd: 0.92 cmESV(Teich): 69.1 ml Ao root area: 7.1 cm2 EF(Teich): 41.7 % LA dimension: 3.8 cm LVOT diam: 2.2 cm LVOT area: 3.7 cm2 Doppler Measurements \T\ Calculations MV E max young: MV P1/2t max young: Ao V2 max: LV V1 max P.3 cm/sec 72.1 cm/sec 206.3 cm/sec 8.4 mmHg MV A max young: MV P1/2t: 67.8 msec Ao max PG: LV V1 max: 86.4 cm/sec MVA(P1/2t): 3.2 cm2 17.0 mmHg 144.6 cm/sec MV E/A: 0.83 MV dec slope: CHRISTY(V,D): 2.6 cm2 311.4 cm/sec2 PA V2 max: TR max young: 131.8 cm/sec 257.9 cm/sec PA max PG: TR max P.6 mmHg 6.9 mmHg Left Ventricle The left ventricle is grossly normal size. There is mild concentric left ventricular hypertrophy. The left ventricular ejection fraction is normal. Doppler measurements suggest impaired left ventricular relaxation, which is associated with grade I/IV or mild diastolic dysfunction. Wall motion cannot be accurately commented on, but no definite regional wall motion abnormalities noted. Right Ventricle The right ventricle is borderline dilated. There is normal right ventricular wall thickness. The right ventricular systolic function is normal. Atria The right atrium is normal. The left atrial size is normal. Interarterial septum not well visualized and not well dopplered. Cannot comment on ASD/PFO presence. Mitral Valve The mitral valve is grossly normal. There is no mitral valve stenosis. There is a trace to mild amount of mitral regurgitation. Aortic Valve The aortic valve is grossly normal. There is no aortic valve stenosis. No aortic regurgitation is present. Tricuspid Valve The tricuspid valve is not well visualized, but is grossly normal. There is no tricuspid stenosis. There is a trace to mild amount of tricuspid regurgitation. There is mild pulmonary hypertension by echo. Right ventricular systolic pressure is estimated to be elevated at 30-40mmHg. Pulmonic Valve The pulmonic valve is not well visualized. Great Vessels The aortic root is not well visualized but is probably normal size. The inferior vena cava was not well visualized. Effusions There is no pericardial effusion. : JEREL SCHUSTER > Brian Multani
--- NOTE | 2017-01-16 20:38 | PDOC PROGRESS REPORT ---
Subjective Progress Note for:: 01/16/17 Subjective:: Patient had episode of respiratory distress most likely from fluid overload, she was treated with bronchodilators on the IV fluids discontinued. She continues to have diarrhea the hypokalemia is due to GI loss Physical Exam Vital Signs: Temp Pulse Resp BP Pulse Ox 98.1 F 118 H 24 H 135/74 H 98 01/16/17 16:00 01/16/17 16:00 01/16/17 16:00 01/16/17 16:00 01/16/17 16:00 Intake & Output 01/15/17 01/16/17 01/17/17 06:59 06:59 06:59 Intake Total 2597 2474 600 Output Total 700 Balance 1897 2474 600 Weight 118.2 kg General appearance: PRESENT: no acute distress Eye exam: PRESENT: PERRLA Respiratory exam: PRESENT: clear to auscultation zara Cardiovascular exam: PRESENT: +S1, +S2 GI/Abdominal exam: PRESENT: soft Neurological exam: PRESENT: alert, CN II-XII grossly intact Results Laboratory Results: 01/16/17 07:10 01/16/17 07:10 01/16/17 01/16/17 01/16/17 07:10 07:10 15:53 WBC 19.9 H RBC 3.37 L Hgb 9.4 L Hct 28.9 L MCV 86 MCH 28.0 MCHC 32.6 RDW 17.2 H Plt Count 207 Seg Neutrophils % 59.8 Lymphocytes % 33.6 Monocytes % 6.0 Eosinophils % 0.4 Basophils % 0.2 Absolute Neutrophils 11.9 H Absolute Lymphocytes 6.7 H Absolute Monocytes 1.2 Absolute Eosinophils 0.1 Absolute Basophils 0.0 Carbonic Acid 1.01 L HCO3/H2CO3 Ratio 23:1 ABG pH 7.46 H ABG pCO2 33.6 L ABG pO2 83.6 ABG HCO3 23.5 ABG O2 Saturation 96.8 ABG Base Excess 0.2 FiO2 3.5L Sodium 139.1 Potassium 3.3 L Chloride 103 Carbon Dioxide 25 Anion Gap 11 BUN 13 Creatinine 0.55 Est GFR ( Amer) > 60 Est GFR (Non-Af Amer) > 60 Glucose 102 Calcium 8.3 L Impressions: Chest X-Ray 01/16/17 00:00 IMPRESSION: HEART ENLARGED WITHOUT FAILURE. NO OTHER SIGNIFICANT RADIOGRAPHIC FINDING IN THE CHEST. Assessment & Plan - Diagnosis (1) Hypokalemia, gastrointestinal losses Is this a current diagnosis for this admission?: Yes (2) Diarrhea Qualifiers: Diarrhea type: unspecified type Qualified Code(s): R19.7 - Diarrhea , unspecified Is this a current diagnosis for this admission?: Yes (3) [place]'s syndrome Is this a current diagnosis for this admission?: Yes
[2017-01-16] MEDS: ARIPIPRAZOLE 5 MG TABLET PO SCH (23:45)
[2017-01-16] MEDS: HALOPERIDOL 5 MG TABLET PO SCH (23:45)
[2017-01-16] MEDS: RIVAROXABAN 10 MG TABLET PO SCH (23:46)
[2017-01-16] MEDS: TRAZODONE HCL 50 MG TABLET PO SCH (23:46)
[2017-01-16] MEDS: LISINOPRIL 10 MG TABLET PO SCH (23:48)
[2017-01-17] MEDS: POTASSI CL 40 MEQ/D5-1/2NS 1L 1,000 ML IV PRN (02:38)
[2017-01-17 05:25] LABS: ANION GAP 10 (5-19); BLOOD UREA NITROGEN 13 mg/dL (7-20); CALCIUM 8.4 mg/dL (8.4-10.2); CARBON DIOXIDE 26 mmol/L (22-30); CHLORIDE 105 mmol/L (98-107); CREATININE RESULT 0.49 mg/dL (0.52-1.25); GLUCOSE 93 mg/dL (75-110); POTASSIUM 3.6 mmol/L (3.6-5.0); SODIUM 140.6 mmol/L (137-145)
[2017-01-17] MEDS: LORAZEPAM 1 MG TABLET PO SCH ×3 (06:58→21:24)
[2017-01-17] MEDS: LANSOPRAZOLE 15 MG TAB.RAP.DR PO SCH (08:14)
[2017-01-17] MEDS: RISPERIDONE 1 MG TABLET PO SCH ×2 (10:40→17:07)
[2017-01-17] MEDS: POTASSIUM CHLORIDE 10 MEQ TABLET.SA PO SCH ×2 (10:40→21:24)
[2017-01-17] MEDS: BENZTROPINE MESYLATE 1 MG TABLET PO SCH ×2 (10:40→21:24)
[2017-01-17] MEDS: RIVAROXABAN 10 MG TABLET PO SCH (21:24)
[2017-01-17] MEDS: HALOPERIDOL 5 MG TABLET PO SCH (21:25)
[2017-01-17] MEDS: ARIPIPRAZOLE 5 MG TABLET PO SCH (21:25)
[2017-01-17] MEDS: TRAZODONE HCL 50 MG TABLET PO SCH (21:25)
[2017-01-17] MEDS: LISINOPRIL 10 MG TABLET PO SCH (21:28)
[2017-01-18] MEDS: POTASSIUM CHLORIDE 10 MEQ TABLET.SA PO SCH ×2 (10:13→21:39)
[2017-01-18] MEDS: LANSOPRAZOLE 15 MG TAB.RAP.DR PO SCH (10:13)
[2017-01-18] MEDS: BENZTROPINE MESYLATE 1 MG TABLET PO SCH ×2 (10:13→21:37)
[2017-01-18] MEDS: RISPERIDONE 1 MG TABLET PO SCH ×2 (10:14→18:13)
[2017-01-18] MEDS: POTASSI CL 40 MEQ/D5-1/2NS 1L 1,000 ML IV PRN (13:56)
[2017-01-18] MEDS: LORAZEPAM 1 MG TABLET PO SCH ×2 (13:56→21:40)
--- NOTE | 2017-01-18 15:00 | PDOC PROGRESS REPORT ---
Subjective Progress Note for:: 01/17/17 Subjective:: Patient was seen by the bedside the serum potassium is improved, she is doing somewhat better than last time Physical Exam Vital Signs: Temp Pulse Resp BP Pulse Ox 97.4 F 100 20 109/61 95 01/17/17 16:15 01/17/17 19:00 01/17/17 17:04 01/17/17 16:15 01/17/17 17:04 Intake & Output 01/16/17 01/17/17 01/18/17 06:59 06:59 06:59 Intake Total 2474 1800 2008 Balance 2474 1800 2008 Weight 118.2 kg 119 kg 119 kg General appearance: PRESENT: mild distress Eye exam: PRESENT: PERRLA Respiratory exam: PRESENT: clear to auscultation zara Cardiovascular exam: PRESENT: +S1, +S2 GI/Abdominal exam: PRESENT: distended, soft Neurological exam: PRESENT: alert, CN II-XII grossly intact Results Laboratory Results: 01/16/17 07:10 01/17/17 04:39 01/17/17 04:39 Sodium 140.6 Potassium 3.6 Chloride 105 Carbon Dioxide 26 Anion Gap 10 BUN 13 Creatinine 0.49 L Est GFR ( Amer) > 60 Est GFR (Non-Af Amer) > 60 Glucose 93 Calcium 8.4 Impressions: Chest X-Ray 01/16/17 00:00 IMPRESSION: HEART ENLARGED WITHOUT FAILURE. NO OTHER SIGNIFICANT RADIOGRAPHIC FINDING IN THE CHEST. Assessment & Plan - Diagnosis (1) Hypokalemia, gastrointestinal losses Is this a current diagnosis for this admission?: Yes (2) Diarrhea Qualifiers: Diarrhea type: unspecified type Qualified Code(s): R19.7 - Diarrhea , unspecified Is this a current diagnosis for this admission?: Yes (3) Mariela's syndrome Is this a current diagnosis for this admission?: Yes
[2017-01-18 16:51] LABS: ANION GAP 7 (5-19); BLOOD UREA NITROGEN 9 mg/dL (7-20); CALCIUM 8.6 mg/dL (8.4-10.2); CARBON DIOXIDE 29 mmol/L (22-30); CHLORIDE 103 mmol/L (98-107); CREATININE RESULT 0.45 mg/dL (0.52-1.25); GLUCOSE 91 mg/dL (75-110); MAGNESIUM 1.6 mg/dL (1.6-2.3); SODIUM 139.3 mmol/L (137-145)
[2017-01-18 16:55] LABS: POTASSIUM 2.9 mmol/L (3.6-5.0)
--- NOTE | 2017-01-18 18:09 | PDOC PROGRESS REPORT ---
Subjective Progress Note for:: 01/18/17 Subjective:: She still have hypokalemia due to GI losses, still have loose stool Physical Exam Vital Signs: Temp Pulse Resp BP Pulse Ox 97.8 F 100 21 H 121/42 L 97 01/18/17 15:23 01/18/17 15:23 01/18/17 15:23 01/18/17 15:23 01/18/17 17:26 Intake & Output 01/17/17 01/18/17 01/19/17 06:59 06:59 06:59 Intake Total 1800 2809 237 Balance 1800 2809 237 Weight 119 kg 120.2 kg General appearance: PRESENT: no acute distress Eye exam: PRESENT: PERRLA Respiratory exam: PRESENT: clear to auscultation zara Cardiovascular exam: PRESENT: +S1, +S2 Results Laboratory Results: 01/16/17 07:10 01/18/17 16:20 01/18/17 16:20 Sodium 139.3 Potassium 2.9 L* Chloride 103 Carbon Dioxide 29 Anion Gap 7 BUN 9 Creatinine 0.45 L Est GFR ( Amer) > 60 Est GFR (Non-Af Amer) > 60 Glucose 91 Calcium 8.6 Magnesium 1.6 Impressions: Chest X-Ray 01/16/17 00:00 IMPRESSION: HEART ENLARGED WITHOUT FAILURE. NO OTHER SIGNIFICANT RADIOGRAPHIC FINDING IN THE CHEST. Assessment & Plan - Diagnosis (1) Hypokalemia, gastrointestinal losses Is this a current diagnosis for this admission?: YesPlan: Replace potassium with K riders (2) Diarrhea Qualifiers: Diarrhea type: unspecified type Qualified Code(s): R19.7 - Diarrhea , unspecified Is this a current diagnosis for this admission?: Yes (3) [place]'s syndrome Is this a current diagnosis for this admission?: Yes
[2017-01-18] MEDS: POTASSIUM CHLORIDE 20 MEQ/50 ML RTU IV SCH (20:40)
[2017-01-18] MEDS: TRAZODONE HCL 50 MG TABLET PO SCH (21:37)
[2017-01-18] MEDS: HALOPERIDOL 5 MG TABLET PO SCH (21:38)
[2017-01-18] MEDS: ARIPIPRAZOLE 5 MG TABLET PO SCH (21:39)
[2017-01-18] MEDS: RIVAROXABAN 10 MG TABLET PO SCH (21:40)
[2017-01-18] MEDS: LISINOPRIL 10 MG TABLET PO SCH (21:44)
[2017-01-19] MEDS: POTASSIUM CHLORIDE 20 MEQ/50 ML RTU IV SCH ×2 (00:07→04:53)
[2017-01-19] MEDS: LOPERAMIDE HCL 2 MG CAPSULE PO PRN ×2 (02:20→08:58)
[2017-01-19] MEDS: LORAZEPAM 1 MG TABLET PO SCH ×3 (06:13→21:55)
[2017-01-19] MEDS: DIPHENOXYLATE HCL/ATROP SULF 2.5-0.025 MG TABLET PO PRN ×2 (06:18→16:17)
[2017-01-19] MEDS: POTASSI CL 40 MEQ/D5-1/2NS 1L 1,000 ML IV PRN (08:22)
[2017-01-19] MEDS: LANSOPRAZOLE 15 MG TAB.RAP.DR PO SCH (08:23)
[2017-01-19] MEDS: POTASSIUM CHLORIDE 10 MEQ TABLET.SA PO SCH ×2 (08:59→21:55)
[2017-01-19] MEDS: RISPERIDONE 1 MG TABLET PO SCH ×2 (09:00→18:00)
[2017-01-19] MEDS: BENZTROPINE MESYLATE 1 MG TABLET PO SCH ×2 (09:00→21:52)
[2017-01-19 14:12] LABS: ALANINE AMINOTRANSFERASE 43 U/L (9-52); ALBUMIN 2.4 g/dL (3.5-5.0); ALKALINE PHOSPHATASE 256 U/L (38-126); ANION GAP 9 (5-19); ASPARTATE AMINO TRANSFERASE 29 U/L (14-36); BILIRUBIN,DIRECT 0.2 mg/dL (0.0-0.4); BILIRUBIN,TOTAL 0.6 mg/dL (0.2-1.3); BLOOD UREA NITROGEN 6 mg/dL (7-20); CALCIUM 8.7 mg/dL (8.4-10.2); CARBON DIOXIDE 28 mmol/L (22-30); CHLORIDE 106 mmol/L (98-107); CREATININE RESULT 0.43 mg/dL (0.52-1.25); GLUCOSE 94 mg/dL (75-110); POTASSIUM 3.3 mmol/L (3.6-5.0); SODIUM 142.9 mmol/L (137-145)
[2017-01-19] MEDS: POTASSI CL 20 MEQ/50 ML RIDER 20 MEQ/50 ML RTUPB IV SCH (21:50)
[2017-01-19] MEDS: ARIPIPRAZOLE 5 MG TABLET PO SCH (21:52)
[2017-01-19] MEDS: HALOPERIDOL 5 MG TABLET PO SCH (21:53)
[2017-01-19] MEDS: TRAZODONE HCL 50 MG TABLET PO SCH (21:54)
[2017-01-19] MEDS: RIVAROXABAN 10 MG TABLET PO SCH (21:56)
[2017-01-19] MEDS: LISINOPRIL 10 MG TABLET PO SCH (21:57)
[2017-01-20] MEDS: POTASSI CL 20 MEQ/50 ML RIDER 20 MEQ/50 ML RTUPB IV SCH (01:19)
[2017-01-20 04:38] LABS: ALANINE AMINOTRANSFERASE 38 U/L (9-52); ALBUMIN 2.1 g/dL (3.5-5.0); ALKALINE PHOSPHATASE 208 U/L (38-126); ANION GAP 8 (5-19); ASPARTATE AMINO TRANSFERASE 24 U/L (14-36); BILIRUBIN,DIRECT 0.3 mg/dL (0.0-0.4); BILIRUBIN,TOTAL 0.6 mg/dL (0.2-1.3); BLOOD UREA NITROGEN 6 mg/dL (7-20); CALCIUM 8.3 mg/dL (8.4-10.2); CARBON DIOXIDE 26 mmol/L (22-30); CHLORIDE 107 mmol/L (98-107); CREATININE RESULT 0.42 mg/dL (0.52-1.25); GLUCOSE 96 mg/dL (75-110); POTASSIUM 3.5 mmol/L (3.6-5.0); SODIUM 141.4 mmol/L (137-145); TOTAL PROTEIN 4.7 g/dL (6.3-8.2)
[2017-01-20] MEDS: LORAZEPAM 1 MG TABLET PO SCH ×3 (06:33→21:35)
[2017-01-20] MEDS: LANSOPRAZOLE 15 MG TAB.RAP.DR PO SCH (07:56)
[2017-01-20] MEDS: POTASSIUM CHLORIDE 10 MEQ TABLET.SA PO SCH ×2 (10:03→21:19)
[2017-01-20] MEDS: RISPERIDONE 1 MG TABLET PO SCH ×2 (10:04→18:37)
[2017-01-20] MEDS: BENZTROPINE MESYLATE 1 MG TABLET PO SCH ×2 (10:04→21:20)
--- NOTE | 2017-01-20 13:46 | PDOC PROGRESS REPORT ---
Subjective Progress Note for:: 01/20/17 Subjective:: Patient seen and evaluated this morning. Pain controlled. Denies numbness or tingling. Physical Exam Vital Signs: Temp Pulse Resp BP Pulse Ox 97.4 F 99 20 127/66 H 97 01/20/17 11:53 01/20/17 11:53 01/20/17 11:53 01/20/17 11:53 01/20/17 11:53 Intake & Output 01/19/17 01/20/17 01/21/17 06:59 06:59 06:59 Intake Total 1721 4251 Output Total 300 Balance 1721 3951 Musculoskeletal exam: PRESENT: other - Right lower extremity: Incisions healed. No evidence of erythema or drainage. No effusion. Patient has medial laxity and crepitation with range of motion. No calf tenderness. No pain with range of motion. Results Laboratory Results: 01/16/17 07:10 01/20/17 03:57 01/19/17 01/20/17 13:32 03:57 Sodium 142.9 141.4 Potassium 3.3 L 3.5 L Chloride 106 107 Carbon Dioxide 28 26 Anion Gap 9 8 BUN 6 L 6 L Creatinine 0.43 L 0.42 L Est GFR ( Amer) > 60 > 60 Est GFR (Non-Af Amer) > 60 > 60 Glucose 94 96 Calcium 8.7 8.3 L Total Bilirubin 0.6 0.6 AST 29 24 ALT 43 38 Alkaline Phosphatase 256 H 208 H Total Protein 5.0 L 4.7 L Albumin 2.4 L 2.1 L Impressions: Chest X-Ray 01/16/17 00:00 IMPRESSION: HEART ENLARGED WITHOUT FAILURE. NO OTHER SIGNIFICANT RADIOGRAPHIC FINDING IN THE CHEST. Assessment & Plan - Diagnosis (1) Closed comminuted intra-articular fracture of distal end of right femur Qualifiers: Encounter type: subsequent encounter Is this a current diagnosis for this admission?: YesPlan: Patient will continue nonweightbearing in her right lower extremities. Yesenia will be removed today. We will obtain x-rays on Monday to evaluate.
--- NOTE | 2017-01-20 18:37 | PDOC PROGRESS REPORT ---
Subjective Progress Note for:: 01/19/17 Subjective:: She still have hypokalemia due to GI losses, still have loose stool Physical Exam Vital Signs: Temp Pulse Resp BP Pulse Ox 97.8 F 102 H 18 100/51 L 99 01/19/17 15:00 01/19/17 15:00 01/19/17 15:00 01/19/17 15:00 01/19/17 15:00 Intake & Output 01/18/17 01/19/17 01/20/17 06:59 06:59 06:59 Intake Total 2809 1721 2614 Output Total 300 Balance 2809 1721 2314 Weight 120.2 kg General appearance: PRESENT: no acute distress Eye exam: PRESENT: PERRLA Cardiovascular exam: PRESENT: +S1, +S2 GI/Abdominal exam: PRESENT: soft Neurological exam: PRESENT: alert Results Laboratory Results: 01/16/17 07:10 01/19/17 13:32 01/19/17 13:32 Sodium 142.9 Potassium 3.3 L Chloride 106 Carbon Dioxide 28 Anion Gap 9 BUN 6 L Creatinine 0.43 L Est GFR ( Amer) > 60 Est GFR (Non-Af Amer) > 60 Glucose 94 Calcium 8.7 Total Bilirubin 0.6 AST 29 ALT 43 Alkaline Phosphatase 256 H Total Protein 5.0 L Albumin 2.4 L Impressions: Chest X-Ray 01/16/17 00:00 IMPRESSION: HEART ENLARGED WITHOUT FAILURE. NO OTHER SIGNIFICANT RADIOGRAPHIC FINDING IN THE CHEST. Assessment & Plan - Diagnosis (1) Hypokalemia, gastrointestinal losses Is this a current diagnosis for this admission?: YesPlan: Replace potassium (2) Diarrhea Qualifiers: Diarrhea type: unspecified type Qualified Code(s): R19.7 - Diarrhea , unspecified Is this a current diagnosis for this admission?: Yes (3) Mariela's syndrome Is this a current diagnosis for this admission?: Yes
[2017-01-20] MEDS: DIPHENOXYLATE HCL/ATROP SULF 2.5-0.025 MG TABLET PO PRN (18:41)
[2017-01-20] MEDS: LOPERAMIDE HCL 2 MG CAPSULE PO PRN (18:41)
[2017-01-20] MEDS: LISINOPRIL 10 MG TABLET PO SCH (21:19)
[2017-01-20] MEDS: ARIPIPRAZOLE 5 MG TABLET PO SCH (21:20)
[2017-01-20] MEDS: HALOPERIDOL 5 MG TABLET PO SCH (21:20)
[2017-01-20] MEDS: RIVAROXABAN 10 MG TABLET PO SCH (21:21)
[2017-01-20] MEDS: POTASSIUM CHLORIDE 20 MEQ/15 ML UDCUP PO SCH (21:21)
[2017-01-20] MEDS: TRAZODONE HCL 50 MG TABLET PO SCH (21:21)
[2017-01-20] MEDS ORDERED: FUROSEMIDE INJ/PF 40 MG/4 ML SDV ONE (21:31)
[2017-01-20] MEDS: POTASSI CL 40 MEQ/D5-1/2NS 1L 1,000 ML IV PRN (23:37)
[2017-01-21] MEDS: POTASSIUM CHLORIDE 20 MEQ/15 ML UDCUP PO SCH (05:32)
[2017-01-21] MEDS: LORAZEPAM 1 MG TABLET PO SCH (05:32)
[2017-01-21] MEDS: RISPERIDONE 1 MG TABLET PO SCH (11:19)
[2017-01-21] MEDS: BENZTROPINE MESYLATE 1 MG TABLET PO SCH (11:19)
[2017-01-21] MEDS: POTASSIUM CHLORIDE 10 MEQ TABLET.SA PO SCH (11:19)
[2017-01-21] MEDS: LANSOPRAZOLE 15 MG TAB.RAP.DR PO SCH (11:20)
--- NOTE | 2017-01-21 13:15 | PDOC PROGRESS REPORT ---
Subjective Progress Note for:: 01/20/17 Subjective:: Patient was seen by the bedside, she was admitted because of severe hypokalemia in the setting of profuse diarrhea associated with distended colon. She has no new complaints today she be discharged back to [facility] Physical Exam Vital Signs: Temp Pulse Resp BP Pulse Ox 97.5 F 102 H 20 127/63 H 93 01/21/17 08:16 01/21/17 08:16 01/21/17 08:16 01/21/17 08:16 01/21/17 08:16 Intake & Output 01/20/17 01/21/17 01/22/17 06:59 06:59 06:59 Intake Total 4251 4580 Output Total 300 Balance 3951 4580 General appearance: PRESENT: no acute distress Eye exam: PRESENT: PERRLA Respiratory exam: PRESENT: clear to auscultation zara Cardiovascular exam: PRESENT: +S1, +S2 GI/Abdominal exam: PRESENT: soft Neurological exam: PRESENT: alert, CN II-XII grossly intact Results Laboratory Results: 01/16/17 07:10 01/20/17 03:57 Impressions: Chest X-Ray 01/16/17 00:00 IMPRESSION: HEART ENLARGED WITHOUT FAILURE. NO OTHER SIGNIFICANT RADIOGRAPHIC FINDING IN THE CHEST. Assessment & Plan - Diagnosis (1) Hypokalemia, gastrointestinal losses Is this a current diagnosis for this admission?: Yes (2) Diarrhea Qualifiers: Diarrhea type: unspecified type Qualified Code(s): R19.7 - Diarrhea , unspecified Is this a current diagnosis for this admission?: Yes (3) [place]'s syndrome Is this a current diagnosis for this admission?: Yes
--- NOTE | 2017-01-21 13:19 | PDOC TRANSFER SUMMARY ---
General - Admit/Disc Date/PCP Admission Date/Primary Care Provider: 01/13/17 09:23 VERENICE MILLER MD Discharge Date: 01/21/17 - Discharge Diagnosis (1) Hypokalemia, gastrointestinal losses Is this a current diagnosis for this admission?: Yes (2) Diarrhea Is this a current diagnosis for this admission?: Yes (3) Tyler's syndrome Is this a current diagnosis for this admission?: Yes - Additional Information Home Medications: Acetaminophen [Tylenol 325 mg Tablet] 650 mg PO Q4HP PRN 01/13/17 Aripiprazole [Abilify 10 mg Tablet] 10 mg PO QHS 01/13/17 Benztropine Mesylate [Cogentin 1 mg Tablet] 1 mg PO BID 01/13/17 Haloperidol [Haldol 5 mg Tablet] 15 mg PO QHS 01/13/17 Lisinopril [Prinivil 10 mg Tablet] 10 mg PO DAILY 01/13/17 Lorazepam [Ativan 1 mg Tablet] 1 mg PO TID 01/13/17 Omeprazole Magnesium [Prilosec Otc] 20 mg PO QAM 01/13/17 Risperidone [Risperdal] 4 mg PO BID 01/13/17 Rivaroxaban [Xarelto 10 mg Tablet] 10 mg PO QHS 01/13/17 Trazodone HCl [Desyrel 50 mg Tablet] 25 mg PO QHS 01/13/17 Potassium Chloride [Kaon-Cl 20 Meq/15 ml Udcup] 10 meq PO Q8 #0 udc 01/21/17 History of Present Illness Admission Date/PCP: 01/13/17 09:23 VERENICE MILLER MD History of Present Illness: INDY VENTURA is a 61 year old female, she was just discharged from this hospital on 01/10/2017 when she had close comminuted intra-articular fracture of the distal end of the right femur, diarrhea complicated with hypokalemia, diane syndrome, [facility] was [facility]. She had routine lab work and she was found to have serum potassium of 2.4, she was then referred to the emergency room ,in the ER she was advised to be admitted to the hospital for replacement therapy of the severe hypokalemia. She continues to have severe diarrhea which was present the last time she was admitted, but improved on discharge. The last time she was in the hospital she had severe abdominal distention and she underwent decompression colonoscopy and also treatment with neostigmine subcutaneously. Hospital Course Hospital Course: Patient was admitted because of severe hypokalemia, she has profuse diarrhea associated with distended colon. She was transferred from the [facility] because of severe hypokalemia, this was replaced with multiple infusion of K- Riders and also continuous infusion with potassium drip. Physical Exam Vital Signs: Temp Pulse Resp BP Pulse Ox 97.5 F 102 H 20 127/63 H 93 01/21/17 08:16 01/21/17 08:16 01/21/17 08:16 01/21/17 08:16 01/21/17 08:16 Intake & Output 01/20/17 01/21/17 01/22/17 06:59 06:59 06:59 Intake Total 4251 4580 Output Total 300 Balance 3951 4580 General appearance: PRESENT: no acute distress Eye exam: PRESENT: PERRLA Respiratory exam: PRESENT: clear to auscultation zara Cardiovascular exam: PRESENT: +S1, +S2 GI/Abdominal exam: PRESENT: distended Neurological exam: PRESENT: alert, awake, oriented to person, oriented to place , oriented to time, oriented to situation, CN II-XII grossly intact. ABSENT: motor sensory deficit Results Laboratory Results: 01/16/17 07:10 01/20/17 03:57 Impressions: Chest X-Ray 01/16/17 00:00 IMPRESSION: HEART ENLARGED WITHOUT FAILURE. NO OTHER SIGNIFICANT RADIOGRAPHIC FINDING IN THE CHEST.
[2017-01-21 16:19] VITALS: BP 112/54
== END 2017-01-21 16:20 | DRG 641 ==
LOC: ER 05:33 → EH 09:23 → 5 12:33
PROVIDERS: ADMIT Internal Medicine; ATTEND Internal Medicine
PROC: 3E0F73Z Introduction of Anti-inflammatory into Respiratory Tract, Via Natural or Artificial Opening (ICD-10-PCS; principal; 2017-01-13)
DX: E87.6 Hypokalemia (principal); C91.10 Chronic lymphocytic leukemia of B-cell type not having achieved remission; K59.8 Other specified functional intestinal disorders; I10 Essential (primary) hypertension; R19.7 Diarrhea, unspecified; K21.9 Gastro-esophageal reflux disease without esophagitis; F17.200 Nicotine dependence, unspecified, uncomplicated; Z79.899 Other long term (current) drug therapy; F25.9 Schizoaffective disorder, unspecified; S72.401D Unspecified fracture of lower end of right femur, subsequent encounter for closed fracture with routine healing; X58.XXXD Exposure to other specified factors, subsequent encounter
CPT/HCPCS: 36415; 36600; 71010; 80048; 80053; 82803; 83605; 83735; 85025; 87493; 93005; 93010; 93306; 94640; 96361; 96365; 99285; J1630; J1940; J2405; J3475; J3480; J3490; J7620

== ENCOUNTER 2017-10-25 09:01 | Day surgery (SDC) | payer MEDICAID ==
[~2017-10-25 09:01] MED LIST: KETOROLAC TROMETHAMINE 0.45% 4 DROP/0.4 ML DROPERETTE OS PRN
[2017-10-25] MEDS ORDERED: CHONDR SU A NA/HYALUR INTRAOC KIT (SURGICARE) ONE (09:18)
[2017-10-25] MEDS ORDERED: EPINEPHRINE INJ/PF 1 MG/1 ML AMPULE ONE (09:18)
[2017-10-25] MEDS ORDERED: LIDOCAINE 1% INJ-PF (10 MG/ML) 30 ML SDV ONE (09:18)
[2017-10-25] MEDS: TETRACAINE HCL 0.5% OPH SOLN 0.6 ML DROPERETTE OS PRN ×4 (09:22→10:00)
[2017-10-25] MEDS: TROPICAMIDE 1% OPH SOLN 3 ML OS PRN ×3 (09:23→09:48)
[2017-10-25] MEDS: CYCLOPENTOLATE 0.2%/PHENYLEPHRINE 1% OPH SOLN 2 ML OS PRN ×3 (09:23→09:48)
[2017-10-25] MEDS: BESIFLOXACIN HCL 0.6% OPH SUSP 5 ML BOTTLE OS PRN ×4 (09:24→10:28)
[2017-10-25] MEDS ORDERED: MIDAZOLAM 2 MG/2 ML INJ ONE (09:47)
[2017-10-25] MEDS ORDERED: TRYPAN BLUE 0.06 % OPH SOLN 0.5 ML DISP.SYRIN ONE (10:07)
[2017-10-25] MEDS: TOBRAMYCIN SULFATE/DEXAMETH OPH OINTMENT 3.5 GM ONE ×2 (10:28)
== END 2017-10-25 11:19 ==
LOC: SC 09:01
PROVIDERS: ATTEND Ophthalmology
PROC: 08RK3JZ Replacement of Left Lens with Synthetic Substitute, Percutaneous Approach (ICD-10-PCS; principal; 2017-10-25 10:00)
DX: H25.12 Age-related nuclear cataract, left eye (principal); I10 Essential (primary) hypertension; K21.9 Gastro-esophageal reflux disease without esophagitis; M19.90 Unspecified osteoarthritis, unspecified site; Z79.899 Other long term (current) drug therapy; Z79.01 Long term (current) use of anticoagulants; Z87.891 Personal history of nicotine dependence; Z85.6 Personal history of leukemia
CPT/HCPCS: 66984; J2250; J3490 ×6; J0171; 142

== ENCOUNTER 2017-11-08 08:00 | Day surgery (SDC) | payer MEDICAID ==
[~2017-11-08 08:00] MED LIST changes: +CHONDR SU A NA/HYALUR INTRAOC KIT (SURGICARE) ONE; +EPINEPHRINE INJ/PF 1 MG/1 ML AMPULE ONE; +KETOROLAC TROMETHAMINE 0.45% 4 DROP/0.4 ML DROPERETTE OD PRN; -KETOROLAC TROMETHAMINE 0.45% 4 DROP/0.4 ML DROPERETTE OS PRN; +LIDOCAINE 1% INJ-PF (10 MG/ML) 30 ML SDV ONE; +TOBRAMYCIN SULFATE/DEXAMETH OPH OINTMENT 3.5 GM ONE
[2017-11-08] MEDS: TETRACAINE HCL 0.5% OPH SOLN 0.6 ML DROPERETTE OD PRN ×3 (08:24→08:51)
[2017-11-08] MEDS: BESIFLOXACIN HCL 0.6% OPH SUSP 5 ML BOTTLE OD PRN ×3 (08:24→09:16)
[2017-11-08] MEDS: CYCLOPENTOLATE 0.2%/PHENYLEPHRINE 1% OPH SOLN 2 ML OD PRN ×3 (08:24→08:42)
[2017-11-08] MEDS: TROPICAMIDE 1% OPH SOLN 3 ML OD PRN ×3 (08:24→08:42)
[2017-11-08] MEDS ORDERED: MIDAZOLAM 2 MG/2 ML INJ ONE ×2 (08:36→08:42)
[2017-11-08] MEDS ORDERED: TRYPAN BLUE 0.06 % OPH SOLN 0.5 ML DISP.SYRIN ONE (08:38)
== END 2017-11-08 09:55 | disposition home or self-care (01) ==
LOC: SC 08:00
PROVIDERS: ATTEND Ophthalmology
PROC: 08RJ3JZ Replacement of Right Lens with Synthetic Substitute, Percutaneous Approach (ICD-10-PCS; principal; 2017-11-08 09:00)
DX: H25.11 Age-related nuclear cataract, right eye (principal); Z98.42 Cataract extraction status, left eye; C91.01 Acute lymphoblastic leukemia, in remission; I10 Essential (primary) hypertension; K21.9 Gastro-esophageal reflux disease without esophagitis; Z79.899 Other long term (current) drug therapy; Z87.891 Personal history of nicotine dependence; Z79.01 Long term (current) use of anticoagulants; Z88.2 Allergy status to sulfonamides; Z88.5 Allergy status to narcotic agent
CPT/HCPCS: 66984; V2630; J2250; J3490 ×6; J0171; 142